=== PATIENT | female | born 1990 | race Caucasian/White ===

== ENCOUNTER → 2022-12-12 09:09 | Outpatient (BNVA) | payer OTHER, SELFPAY | PROVIDERS: PCP Physician Assistant; Visit Provider Physician Assistant ==

== ENCOUNTER 2023-01-07 09:05 | Outpatient (REF) | payer OTHER, SELFPAY ==
--- NOTE | ~2023-01-07 | XR_ITS ---
EXAMINATION: XR CHEST 2 VIEWS CLINICAL INFORMATION: Morbid obesity. COMPARISON: None. TECHNIQUE: Frontal and lateral views of the chest were obtained. FINDINGS: The heart, great vessels, pulmonary vasculature and mediastinum are normal. The lungs show no focal infiltrate, effusion or pneumothorax. There is no acute osseous abnormality. XR/XR chest 2V IMPRESSION: No active cardiopulmonary disease.
--- NOTE | 2023-01-07 10:05 | ECG_ITS ---
Test Reason : OBESITY Blood Pressure : / mmHG Vent. Rate : 072 BPM Atrial Rate : 072 BPM P-R Int : 168 ms QRS Dur : 096 ms QT Int : 408 ms P-R-T Axes : 017 040 016 degrees QTc Int : 446 ms Normal sinus rhythm Normal ECG No previous ECGs available Referred By: Nitin Alvarenga Electronically Signed By:DILLON VAZQUEZ
[2023-01-07 10:21] LABS: MANUAL DIFF FLAG NO
[2023-01-07 10:48] LABS: Basophils Absolute Auto 0.1 X10*3/uL (0.0-0.2); Basophils Percent Auto 0.5 % (0-2); Eosinophils Absolute Auto 0.1 X10*3/uL (0.0-0.4); Eosinophils Percent Auto 1.1 % (0-4); Hematocrit 38.3 % (37.0-47.0); Imm Gran Abs Auto 0.05 X10*3/uL (0.00-0.03); Imm Gran Pct Auto 0.4 % (0.0-0.4); Lymphocytes Absolute Auto 2.6 X10*3/uL (1.2-4.9); Lymphocytes Percent Auto 21.7 % (20-40); Mean Corpuscular HGB Conc 31.3 g/dl (31.0-35.0); Mean Corpuscular Hemoglobin 25.1 pg (27.0-33.0); Mean Corpuscular Volume 80.1 fL (80.0-98.0); Mean Platelet Volume 10.7 fL (9.4-12.3); Monocytes Absolute Auto 0.6 X10*3/uL (0.1-1.2); Monocytes Percent Auto 5.3 % (2-11); Neutrophils Absolute Auto 8.3 x10*3/uL (2.0-8.3); Platelet Count 317 X10*3/uL (160-400); Red Blood Count 4.78 X10*6/uL (4.20-5.50); Red Cell Distribution Width 19.1 % (11.0-16.0); White Blood Count 11.7 X10*3/uL (4.8-10.8)
[2023-01-07 10:56] LABS: Estimated Average Glucose 157 mg/dL; Hemoglobin A1c % 7.1 %
[2023-01-07 11:23] LABS: Alanine Aminotransferase 18 U/L (0-31); Albumin Level 4.2 g/dL (3.5-5.0); Alkaline Phosphatase 70 U/L (39-117); Anion Gap 14 (12-20); Aspartate Amino Transferase 11 U/L (5-31); Bilirubin Total 0.5 mg/dL (0.0-1.0); Blood Urea Nitrogen 11 mg/dL (9-16); C Reactive Protein 3.23 mg/dL (< or = 0.50); Calcium 9.4 mg/dL (8.4-10.2); Carbon Dioxide 27 mmol/L (22-29); Chloride 102 mmol/L (96-108); Cholesterol 182 mg/dL; Estimated Glomerular Filt Rate > 60; Glucose Random 142 mg/dL (60-115); HDL Cholesterol 38 mg/dL; Iron 62 mcg/dL (30-160); LDL Cholesterol Calculated 122 mg/dl; Percent Iron Saturation 27 % (15-50); Potassium 4.4 mmol/L (3.3-5.1); Sodium 139 mmol/L (135-145); Total Iron Binding Capacity 228 mcg/dL (228-428); Total Protein 6.9 g/dL (6.5-8.0); Triglycerides 113 mg/dL; Unsaturated Iron Binding 166 ug/dL
[2023-01-07 11:51] LABS: Ferritin 371 ng/mL (10-122); Insulin 83 uU/mL (2-29); Vitamin B12 251 pg/mL (200-900); Vitamin D 25-OH Total 24.5 ng/mL (>30)
[2023-01-08 14:09] LABS: Calcium (PTHI) 9.5 mg/dL (8.6-10.2); PTHI 25 pg/mL (16-77)
[2023-01-09 13:54] LABS: H Pylori Breath Test Negative (Negative)
[2023-01-13 07:03] LABS: Vitamin B1 13 nmol/L (8-30)
[2023-01-15 05:33] LABS: Zinc 79 mcg/dL (60-130)
[2023-01-16 16:14] LABS: Vitamin A 43 mcg/dL (38-98)
== END 2023-01-07 09:06 | disposition home or self-care (01) ==
LOC: HO.LAB 09:05
PROVIDERS: PCP Physician Assistant; Visit Provider Physician Assistant Surgical
DX: E66.01 Morbid (severe) obesity due to excess calories (principal); R06.83 Snoring; Z71.3 Dietary counseling and surveillance; Z79.899 Other long term (current) drug therapy; Z68.43 Body mass index [BMI] 50.0-59.9, adult
CPT/HCPCS: 36415; 71046; 80053; 80061; 82306; 82607; 82728; 82746; 83013; 83036; 83525; 83540; 83970; 84425; 84443; 84590; 84630; 85025; 86140; 93005; 99202; 99211

== ENCOUNTER → 2023-01-26 20:30 | Outpatient (REF) | payer OTHER, SELFPAY | LOC: HO.SL 20:30 | PROVIDERS: Visit Provider Physician Assistant Surgical | DX: G47.33 Obstructive sleep apnea (adult) (pediatric) (principal) | CPT/HCPCS: 95811 ==

== ENCOUNTER → 2023-01-27 12:00 | Outpatient (BNVA) | payer OTHER, SELFPAY | PROVIDERS: Referring Provider Physician Assistant Surgical; Visit Provider Counselor Mental Health ==

== ENCOUNTER 2023-02-24 12:19 | Outpatient (AMB) | payer OTHER, SELFPAY ==
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
== END 2023-02-24 12:40 | disposition home or self-care (01) ==
LOC: HO.HBST 12:19
PROVIDERS: Visit Provider Counselor Mental Health
DX: F50.9 Eating disorder, unspecified (principal); F43.10 Post-traumatic stress disorder, unspecified
CPT/HCPCS: 90834

== ENCOUNTER → 2023-02-24 12:19 | Outpatient (BNVA) | payer OTHER, SELFPAY | PROVIDERS: Visit Provider Counselor Mental Health ==

== ENCOUNTER 2023-02-24 13:51 | Outpatient (AMB) | payer OTHER, SELFPAY ==
--- NOTE | 2023-02-24 13:19 | MHC.OFFVISWM ---
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 Allergies No Known Allergies Allergy (Verified 01/07/23 11:54) Medication List - Last Reconciled 02/24/23 by SANDRA Bowers albuterol sulfate 90 mcg/actuation (ProAir HFA) 2 puffs inhalation Q4-6H PRN baclofen 10 mg PO TID PRN blood-glucose meter (FreeStyle Lite Meter kit) As directed cetirizine 10 mg PO DAILY PRN cholecalciferol (vitamin D3) 125 mcg PO DAILY 90 days clotrimazole-betamethasone 1-0.05 % 1 appl topical BID cyanocobalamin (vitamin B-12) 500 mcg PO DAILY 90 days ferrous sulfate 325 mg PO DAILY fluticasone furoate 100 mcg/actuation (Arnuity Ellipta) 1 inh inhalation DAILY fluticasone propionate 50 mcg/actuation (Flonase Allergy Relief) 2 sprays intranasal DAILY fluticasone propionate 110 mcg/actuation (Flovent HFA) 2 puffs inhalation BID gabapentin 600 mg PO TID insulin lispro (Admelog U-100 Insulin lispro) 1 sliding scale dose subcut USEASDIRECTD insulin pump cart,automated,BT (Omnipod 5 G6 Pods (Gen 5) subcutaneous cartridge) As directed ipratropium-albuterol 0.5 mg-3 mg(2.5 mg base)/3 mL 3 mL inhalation Q4-6H PRN montelukast 10 mg PO BEDTIME HPI HPI Comments History of Present Illness Details The patient is a pleasant 32 year old female who returns to the clinic for pre-operative surgical weight loss management. They were last seen in the office on 01/07/23, recorded weight at that time was 299.6 pounds, with a BMI of 51.4. Today's weight is 290.5 pounds and BMI is 49.9. There has been a weight loss of 9.1 pounds since initiating the surgical weight loss program on 01/07/23 with a total body weight loss of 3 %. Pre op work up completed as follows: SWL classes:? BH appts: 02/24/23 ? ? RD appts: 02/28/23 Labs: 01/07/23-HgbA1c:7.1, B12:251, Low D H. pylori: 01/07/23-neg CXR: 01/07/23-nad EK01/07/23-normal ABD U/S: 03/13/23 UGI: 03/13/23 The patient reports she has had a significant improvement in her BS with reading 100-120 and her endocinologist stopped the trulicity and metformin. Not doing the third shake as she is too full. Current meal plan includes: 3 Pure Protein shakes ([employer], [employer], [employer]) First shake (1 scoop in 8 oz low fat unsweetened almond milk) at 8am-10am Second shake, (1/2 scoop in 8 oz low fat unsweetened almond milk) at 11am-1pm 1 protein bar (Fulfil bars at [employer], [employer], or [employer]) at 2pm-4pm. Dinner at 4pm (10 forks of protein and 10 forks of salad/vegetables). Drinking 80 oz of water Current exercise plan includes: stationary bike, elliptical and treadmill but she recently went to and was told she can only do the bike. Stationary bike 45-60 min, daily, [facility] Surgical History Hx of section Hx of eye surgery Family History Mother No problems noted. Father Hypertension Diabetes Neuropathy Brother No problems noted. Brother No problems noted. Sister Diabetes Sister No problems noted. Daughter Asthma Epilepsy Social History Alcohol intake: never Patient Tobacco Use Status: Never used Tobacco Assessment & Plan Assessment & Plan (1) Morbid obesity: Code(s): E66.01 - Morbid (severe) obesity due to excess calories Plan: making improvements. Continue meal plan. Encouraged to join [employer] (given discount paper) track calories with goal of 300 per day. rtc 3 weeks reminded of upcoming appts. Telehealth Telehealth Location of provider rendering services: practice address Location of patient: address on file Patient Identification confirmed using: Name, : Yes Telehealth method: video Patient verbally consented to treatment: Yes Patient verbally consented to billing insurance company: Yes Patient informed of any privacy concerns related to visit: Yes Minutes spent on Phone/Video with Pt.: 15 Coding Level of Care Code Tele Est Pt Level 3 (20534) Diagnoses Morbid obesity E66.01 Time Spent (min) 20
[2023-02-24 13:20] VITALS: BMI 49.9
== END 2023-02-24 14:17 | disposition home or self-care (01) ==
LOC: HO.HBS 13:51
PROVIDERS: Visit Provider Physician Assistant Surgical
DX: E66.01 Morbid (severe) obesity due to excess calories (principal); Z68.42 Body mass index [BMI] 45.0-49.9, adult
CPT/HCPCS: 99213

== ENCOUNTER 2023-02-28 09:00 | Outpatient (AMB) | payer OTHER, SELFPAY ==
--- NOTE | 2023-02-28 08:43 | MHC.AMNUTRGE ---
Intake Intake Visit Reasons: (OV) Initial Nutrition SWL Grades 9 Through 12 Teacher Required: Yes Grades 9 Through 12 Teacher Name: michael [email or web address] Information Interpreted: non-clinical & clinical Allergies No Known Allergies Allergy (Verified 01/07/23 11:54) HPI Nutrition Presentation Details APPLICATIONS COORDINATOR weight 299# - December 2022 Reason for consult elevated BMI Diet Assmnt Details I cant stand the shakes anymore - getting bored of just chocolate or vanilla Has been adding strawberries to her shakes for flavor and because her blood glucose has been dropping to the 60's. She reports she has been hungry at 12 8am Pure Protein shake 1 scoop with almond milk 11am shake 1/2 scoop 2pm bar 4pm meal lettuce, tomato, onion, peppers and pork chop 6pm shake but not having SWL online classes : completed 1-4 Previous weight loss methods attempted reports first being concerned about her weight 5-6 years ago, highest weight to date was 3151. When she first presented to the WMP 12/12/22 her weight was 302.4 with a BMI of 51.9 and she has since made changes to her diet. She has tried multiple methods of weight loss including fad diets, previous WMP at [facility] Dietary counseling reduction Diagnosis Nutrition problem #1 overweight/obesity As related to (etiology) #1 excess energy intake and physical inactivity As evidenced by (sign/symptom) #1 high BMI Nutrition problem #2 altered nutrition labs As related to (etiology) #2 altered metabolism nutri As evidenced by (sign/symptom) #2 widely varied blood sugar (IMPROVING) Monitoring/Goals Nutrition problem monitoring total energy intake, HgbA1c, level of knowledge/skill, total PRO intake, glucose, fasting, total CHO intake and weight Outcome progress progressing Learning/Education Readiness to learn good Stages of change action Educational materials provided Yes Most Recent Diabetes Results: Cholesterol 182 mg/dL 01/07/23 HDL Cholesterol 38 mg/dL 01/07/23 Triglycerides 113 mg/dL 01/07/23 Creatinine 0.73 mg/dL (0.5-1.4) 01/07/23 Blood Urea Nitrogen 11 mg/dL (9-16) 01/07/23 Sodium 139 mmol/L (135-145) 01/07/23 Potassium 4.4 mmol/L (3.3-5.1) 01/07/23 Chloride 102 mmol/L (96-108) 01/07/23 Carbon Dioxide 27 mmol/L (22-29) 01/07/23 Calcium 9.4 mg/dL (8.4-10.2) 01/07/23 AST 11 U/L (5-31) 01/07/23 ALT 18 U/L (0-31) 01/07/23 Total Protein 6.9 g/dL (6.5-8.0) 01/07/23 Albumin 4.2 g/dL (3.5-5.0) 01/07/23 PFSH Surgical History Hx of section Hx of eye surgery Family History Mother No problems noted. Father Hypertension Diabetes Neuropathy Brother No problems noted. Brother No problems noted. Sister Diabetes Sister No problems noted. Daughter Asthma Epilepsy Social History Alcohol intake: never Patient Tobacco Use Status: Never used Tobacco Assessment & Plan Assessment & Plan (1) Morbid obesity: Code(s): E66.01 - Morbid (severe) obesity due to excess calories (2) Diabetes: Code(s): E11.9 - Type 2 diabetes mellitus without complications Patient Instructions: each morning shake 2 scoops protein powder to better meet her protein needs (since she is not having the last one) and help with hunger. Watch blood sugar with adding strawberries to shakes. Try to keep carb content consistent. Provided all handouts and education provided. Will follow up with me again after completing online classes. F/u on 03/26 11am telehealth Coding Level of Care Code Nutr Indiv Intake (34440) Diagnoses Morbid obesity E66.01 Diabetes E11.9 Time Spent (min) 45
== END 2023-02-28 09:45 | disposition home or self-care (01) ==
PROVIDERS: Referring Provider Physician Assistant Surgical; Visit Provider Dietitian, Registered
DX: E66.01 Morbid (severe) obesity due to excess calories (principal); E11.9 Type 2 diabetes mellitus without complications

== ENCOUNTER → 2023-02-28 09:00 | Outpatient (BNVA) | payer OTHER, SELFPAY | PROVIDERS: Referring Provider Physician Assistant Surgical; Visit Provider Dietitian, Registered | DX: E66.01 Morbid (severe) obesity due to excess calories (principal); E11.9 Type 2 diabetes mellitus without complications | CPT/HCPCS: 97802 ==

== ENCOUNTER 2023-03-06 08:26 | Outpatient (AMB) | payer OTHER, SELFPAY ==
--- NOTE | 2023-03-06 08:35 | A.OFFVIS_ITS ---
Intake Vital Signs 03/06/23 08:41 Height 5 ft 4 in Weight 295 lb 2 oz BMI 50.7 BP 122/62 Blood Pressure Location Rt brachial Position Sitting Pulse 66 Pulse Source Pulse Oximeter Pulse Oximetry (%) 96 Oxygen Delivery Method Room Air Intake Visit Reasons: I-BRIAR WO[employer] SORTER: Snoring - LVM Intake Note: NPV for MARIAJOSE, had sleep study done Automobile Relocation Engineer Required: Yes Automobile Relocation Engineer Name: Erika Lopez Allergies No Known Allergies Allergy (Verified 03/06/23 08:36) HPI HPI Comments History of Present Illness Details 2 y/o female patient presents for new in-person visit to manage sleep apnea. Pt reports that she is in wt management program, and plans to have bariatric surgery. She snores and having gasping wakes up since she was a child. Pt reports excessive daytime sleepiness, she can fall asleep anywhere when she is inactive. Pt underwent PSG sleep study. The baseline portion of the study was significant for a moderate degree of sleep apnea with increased severity in REM sleep. The AHI was 19/hr, REM AHI was 40/hr and oxygen kaela was 86%. Pt was trialed on CPAP 4-8cmH2O. The breathing and oxygenation stabilized on all pressure. Sleep questionnaire: Have you ever been diagnosed with a sleep disorder? Yes, MARIAJOSE. Have you ever had a sleep study in the past? Yes. Have you ever been treated for a sleep disorder? Not yet. Do you take medications for a sleep disorder? Prazosin. Do you snore? Yes. Do you wake up gasping at night? Yes. Do you have episodes of apneas? Yes. If yes, are they witnessed? Yes, by her family members. Do you have episodes of nocturnal chest pain or dyspnea? Yes. Do you have difficulty initiating sleep? No. Do you have difficulty maintaining sleep? Yes. Do you wake up tired? Yes. Do you have headaches upon awakening? Yes, sometimes. Do you wake up with dry mouth or throat? Yes. Do you have GERD? Yes. Do you have nocturia? Yes, 4 times at night. Do you have nocturnal leg cramps? Yes. Do you have symptoms of restless legs? Yes. Do you act out your dreams? Yes, yelling. Sleep hygiene questionnaire: What is your usual sleep routine? Usual bedtime is at 8-10 pm; Usual wake up time is at 7-10 am. Do you take naps? Yes. Is your sleep environment cool, dark, and quiet? Yes. Do you exercise? No. Do you take caffeine or other stimulants? Yes, little coffee in the morning. Do you use electronics in bed? Yes. What is your work schedule? No. Hypersomnolence questionnaire: Do you have daytime tiredness or fatigue? Yes. Do you easily fall asleep when inactive? Yes. Have you ever had episodes of sudden weakness? No. Have you ever had episodes of sudden weakness associated with strong emotions? No. PFSH Surgical History Hx of section Hx of eye surgery Family History Mother No problems noted. Father Hypertension Diabetes Neuropathy Brother No problems noted. Brother No problems noted. Sister Diabetes Sister No problems noted. Daughter Asthma Epilepsy Social History Alcohol intake: never Patient Tobacco Use Status: Never used Tobacco Review of Systems Const All systems reviewed & are unremarkable except as noted in HPI and below ENT Reports Normal hearing present Neuro Reports Normal hearing present Physical Exam Vital Signs: Last Vital Signs Pulse 66 03/06/23 08:41 BP 122/62 03/06/23 08:41 Pulse Ox 96 03/06/23 08:41 Oxygen Delivery Method Room Air 03/06/23 08:41 BMI result Body Mass Index 50.7 Const General: cooperative Nutritional Appearance: obese Orientation/consciousness: patient oriented x3 Limitations: language barrier Neck Neck: Yes full ROM and Yes supple Resp Effort & Inspection: normal respiratory effort and able to speak in complete sentences Neuro General: patient oriented x3, gait normal, moves all extremities and no focal motor deficits Cranial nerves: Yes Bilaterally intact EOM present, Yes Normal facial strength present, Yes Midline tongue present, Yes Symmetric palate elevation present and Yes Normal hearing present Cognition (Neuro): normal cognition Gait exam (Neuro): Normal gait present Motor exam (neuro): 5/5 motor strength present throughout, Pronator motor function not present and no tremor noted Psych Appearance: grossly normal Mental Status: mental status grossly normal Speech and movement: Normal speech and movement present Affect: normal affect Attitude: cooperative Assessment & Plan Assessment & Plan (1) MARIAJOSE (obstructive sleep apnea): Comment: A moderate degree of sleep apnea with increased severity in REM. The AHI was 10/hr, REM AHI was 40/hr and oxygen kaela was 86% Code(s): G47.33 - Obstructive sleep apnea (adult) (pediatric) Plan Advised patient to start CPAP at 8cmH2O. Stressed compliance, use CPAP nightly and more than 4 hours. Clean mask and tubing regularly and change the supplies routinely. Sleep hygiene education provided, try to have routine sleep schedule and physically active during daytime. Coding Level of Care Code New Pt Level 3 (80176) Diagnoses MARIAJOSE (obstructive sleep apnea) G47.33
[2023-03-06 08:41] VITALS: BP 122/62; PULSE 66; O2SAT 96; BMI 50.7
== END 2023-03-06 09:16 | disposition home or self-care (01) ==
PROVIDERS: Visit Provider Nurse Practitioner Family
DX: G47.33 Obstructive sleep apnea (adult) (pediatric) (principal)
CPT/HCPCS: 99203

== ENCOUNTER → 2023-03-06 08:26 | Outpatient (BNVA) | payer OTHER, SELFPAY | PROVIDERS: Visit Provider Nurse Practitioner Family | DX: G47.33 Obstructive sleep apnea (adult) (pediatric) (principal) | CPT/HCPCS: 99202 ==

== ENCOUNTER 2023-03-13 07:31 | Outpatient (REF) | payer OTHER, SELFPAY ==
--- NOTE | ~2023-03-13 | US_ITS ---
EXAMINATION: US COMPLETE ABDOMEN WITH LIVER ELASTOGRAPHY CLINICAL INFORMATION: Morbid obesity. COMPARISON: None available. TECHNIQUE: Real-time imaging of the abdominal viscera. Noninvasive ultrasound liver fibrosis assessment is performed using Connie ElastPQ point quantification shear wave elastography (2D-SWE) with a C5-2 MHz transducer. Multiple elastography samples are obtained. FINDINGS: PANCREAS: Limited. The visualized pancreatic head and body are normal in appearance. The remainder of the pancreas is obscured from visualization by the overlying bowel gas. ABDOMINAL AORTA: The proximal, middle, and distal aortic segments are normal in caliber. INFERIOR VENA CAVA: Visualized portions are normal. LIVER: There is hepatomegaly. The liver demonstrates normal size, contour and increased echogenicity. No focal lesion or intrahepatic biliary duct dilatation. The right lobe measures 20.4 cm in length. The left lobe measures 14.2 cm in length. Portal flow is towards the liver (hepatopetal). Shear wave liver elastography median stiffness is 2.17 m/s (reference: normal median stiffness is 1.3 m/s or less). IQR/median stiffness to assess sampling precision is 0.05 (reference: good quality data set is IQR/median stiffness of 0.15 or less). GALLBLADDER: Normal. The gallbladder is physiologically distended without evidence of stones, sludge, polyps, wall thickening or pericholecystic fluid. COMMON BILE DUCT: Normal in caliber measuring 0.3 cm in diameter. RIGHT KIDNEY: Normal. No hydronephrosis. No renal calculi or focal parenchymal lesions. The kidney measures 11.0 cm in maximum dimension. LEFT KIDNEY: Normal. No hydronephrosis. No renal calculi or focal parenchymal lesions. The kidney measures 11.7 cm in maximum dimension. SPLEEN: Normal. The spleen measures 10.0 cm in maximum dimension. FREE FLUID: None. US/US abdomen comp w elastography IMPRESSION: 1. There is hepatomegaly. 2. There is generalized increase in hepatic echotexture, consistent with fatty infiltration or hepatocellular disease. Please correlate clinically. No focal hepatic mass or intrahepatic biliary dilatation is seen. 3. Liver elastography: Measuremensts are consistent with compensated advanced chronic liver disease. REFERENCE: Society of Radiologists in Ultrasound Liver Stiffness Thresholds (2020): LIVER STIFFNESS THRESHOLDS: *Liver Stiffness equal or less than 1.3 m/s: High probability of being normal. *Liver Stiffness less than 1.7 m/s: In the absence of other known clinical signs, rules out compensated advanced chronic liver disease. *Liver Stiffness 1.7-2.1 m/s: Suggestive of compensated advanced chronic liver disease but need further test for confirmation. *Liver Stiffness over 2.1 m/s: Rules in compensated advanced chronic liver disease. *Liver Stiffness over 2.4 m/s: Suggestive of clinically significant portal hypertension. QUALITY OF DATA SET: *IQR/Median value equal or less than 0.15 implies a quality data set. *IQR/Median value over 0.15 implies a poor quality data set. SIGNIFICANT CHANGE FROM PRIOR EXAM: Significant change if liver stiffness measurement is 10% or greater from prior exam. OTHER CONSIDERATIONS: The stage of liver fibrosis may be overestimated in the setting of acute hepatitis, liver inflammation, elevated liver function tests, hepatic vascular congestion, obstructive cholestasis, non-fasting state, and infiltrative diseases such as amyloidosis and lymphoma. In some patients with NAFLD, the liver stiffness thresholds for compensated advanced chronic liver disease may be lower. In causes other than viral hepatitis and NAFLD, liver stiffness thresholds are not well established.
== END 2023-03-13 07:32 | disposition home or self-care (01) ==
LOC: HO.US 07:31
PROVIDERS: Visit Provider Physician Assistant Surgical
DX: E66.01 Morbid (severe) obesity due to excess calories (principal)
CPT/HCPCS: 76705; 76981

== ENCOUNTER 2023-03-18 11:28 | Outpatient (AMB) | payer OTHER, SELFPAY ==
--- NOTE | 2023-03-18 11:36 | A.OFFVIS_ITS ---
Intake VS Expanded 03/18/23 11:40 Height 5 ft 4 in Weight 289 lb 6.4 oz BMI 49.7 BP 115/55 L Blood Pressure Location Rt brachial Blood Pressure Position Sitting Pulse 69 Pulse Source Pulse Oximeter Temp 97.1 F Temperature Source Temporal Artery Scan Pulse Oximetry 97 Oxygen Delivery Method Room Air Body Fat 133.6 Body Fat Percentage 46.2 Free Fat Mass 155.6 Muscle Mass 148.0 Visceral Mass 15.0 Water Mass 111.6 BMR 2,231 Intake Visit Reasons: (OV) F/U SWL Dipper Clock And Watch Hands Required: Yes Dipper Clock And Watch Hands Name: office cmi Allergies No Known Allergies Allergy (Verified 03/18/23 11:39) Medication List - Last Reconciled 03/18/23 by SANDRA Bowers albuterol sulfate 90 mcg/actuation (ProAir HFA) 2 puffs inhalation Q4-6H PRN alcohol swabs (Easy Touch Alcohol Prep Pads) pad topical BID baclofen 10 mg PO TID PRN blood sugar diagnostic (FreeStyle Lite Strips) As directed blood-glucose meter (FreeStyle Lite Meter kit) As directed cetirizine 10 mg PO DAILY PRN cholecalciferol (vitamin D3) 125 mcg PO DAILY 90 days clotrimazole-betamethasone 1-0.05 % 1 appl topical BID cyanocobalamin (vitamin B-12) 500 mcg PO DAILY 90 days diclofenac sodium 1% grams topical BID fluticasone furoate 100 mcg/actuation (Arnuity Ellipta) 1 inh inhalation DAILY fluticasone propionate 50 mcg/actuation (Flonase Allergy Relief) 2 sprays intranasal DAILY fluticasone propionate 110 mcg/actuation (Flovent HFA) 2 puffs inhalation BID gabapentin 600 mg PO TID hydroxychloroquine 200 mg PO BID insulin lispro (Admelog U-100 Insulin lispro) 1 sliding scale dose subcut USEASDIRECTD insulin pump cart,automated,BT (Omnipod 5 G6 Pods (Gen 5) subcutaneous cartridge) As directed lancets (FreeStyle Lancets) As directed montelukast 10 mg PO BEDTIME pantoprazole 40 mg PO DAILY prazosin 2 mg PO BEDTIME sertraline mg PO HPI HPI Comments 2 History of Present Illness Details The patient is a pleasant 32 year old female who returns to the clinic for pre-operative surgical weight loss management. They were last seen in the office on 02/24/23, recorded weight at that time was 290.5 pounds, with a BMI of 50.2. Today's weight is 289.4 pounds and BMI is 49.7. There has been a weight loss of 10.2 pounds since initiating the surgical weight loss program on 01/07/23 with a total body weight loss of 3.4 %. Pre op work up completed as follows: SWL classes:? 11/23 BH appts: cleared-02/24/23 ? ? RD appts: f/u 03/26/23 Labs: 01/07/23-HgbA1c:7.1, B12:251, Low D H. pylori: 01/07/23-neg CXR: 01/07/23-nad EK01/07/23-normal ABD U/S: 03/13/23-fatty liver UGI: 03/13/23 Sleep study 02/06/23-Mod MARIAJOSE-recc CPAP She has not lost much weight since last visit. She states she is doing the meal plan but not drinking much watre. Complains of OA and fibromyalgia The patient reports she has had a significant improvement in her BS with reading 100-150 and her endocinologist stopped the trulicity and metformin.? Not doing the third shake as she is too full.? Current meal plan includes: 3 Pure Protein shakes First shake (1 scoop in 8 oz low fat unsweetened almond milk) at 8am-10am Second shake, (1/2 scoop in 8 oz low fat unsweetened almond milk) at 11am-1pm 1 protein bar (Fulfil bars at [employer], [employer], or [employer]) at 2pm-4pm. Dinner at 4pm (10 forks of protein and 10 forks of salad/vegetables). Another shake with 1/2 scoop in 8 oz unsweetened almond milk at 7pm-9pm. Drinking 32-48 oz of water Current exercise plan includes: stationary bike and treadmill, Stationary bike 45-60 min, daily, Not able to track calories, not yet able to afford [email or web address] [facility] Surgical History Hx of section Hx of eye surgery Family History Mother No problems noted. Father Hypertension Diabetes Neuropathy Brother No problems noted. Brother No problems noted. Sister Diabetes Sister No problems noted. Daughter Asthma Epilepsy Social History Alcohol intake: never Patient Tobacco Use Status: Never used Tobacco Physical Exam Const General: healthy appearing and no acute distress Resp Effort & Inspection: normal respiratory effort Auscultation: clear to auscultation bilaterally Cardio Rate: regular rate Rhythm: regular rhythm GI Auscultation: normal bowel sounds Extrem General: Yes normal to inspection Assessment & Plan Assessment & Plan (1) Morbid obesity: Code(s): E66.01 - Morbid (severe) obesity due to excess calories Plan: Significantly improved BS Encouraged to continue exercise and start treadmill Try to join [employer] (paper given for reduction in membership) when she can do so financially Continue meal plan Reminded of upcoming appts RTC 4 weeks Coding Level of Care Code Est Pt Level 3 (79411) Diagnoses Morbid obesity E66.01
[2023-03-18 11:40] VITALS: BP 115/55; PULSE 69; TEMP 36.2; O2SAT 97; BMI 49.7
== END 2023-03-18 11:59 | disposition home or self-care (01) ==
PROVIDERS: Visit Provider Physician Assistant Surgical
DX: E66.01 Morbid (severe) obesity due to excess calories (principal); Z68.42 Body mass index [BMI] 45.0-49.9, adult
CPT/HCPCS: 99213

== ENCOUNTER → 2023-03-18 11:28 | Outpatient (BNVA) | payer OTHER, SELFPAY | PROVIDERS: Visit Provider Physician Assistant Surgical | DX: E66.01 Morbid (severe) obesity due to excess calories (principal); Z68.42 Body mass index [BMI] 45.0-49.9, adult | CPT/HCPCS: 99212 ==

== ENCOUNTER 2023-03-24 11:00 | Outpatient (AMB) | payer OTHER, SELFPAY ==
--- NOTE | 2023-03-24 11:23 | MHC.WMTHER ---
Intake Intake Visit Reasons: VIDEO BH F/U Allergies No Known Allergies Allergy (Verified 03/18/23 11:39) PFSH Surgical History Hx of section Hx of eye surgery Family History Mother No problems noted. Father Hypertension Diabetes Neuropathy Brother No problems noted. Brother No problems noted. Sister Diabetes Sister No problems noted. Daughter Asthma Epilepsy Social History Alcohol intake: never Patient Tobacco Use Status: Never used Tobacco Behavioral Health Assessment Weight Management Therapy Therapy Notes Details PT presents for a f/up PT reports she's frustrated about not been able to loss weight as she wishes. She's also struggling with pain due to fibromyalgia. Reports she is using treadmill and bike but she's not tracking how much calories she burn, also been swimming 2 times at week. INTERVENTIONS: Active listening, processed functioning, progress and needs. Validated frustration feelings and explored possible things impacting her weight-loss journey. Cognitive processing therapy, provided with coping strategies to manage negative intrusive thoughts and become flexible about her journey. Explored ways she could improve physical activity and provided resources of modified workouts (program worksheet). RESPONSE: PT was open and active. Pt has been cleared but will continue receiving monthly support. Presenting Concerns Referral Source P Provider. Reason for referral Behavioral health assessment and support as part of process for weight-loss surgery. Precipitating Event Medical issues. Assessment & Plan Assessment & Plan (1) Eating disorder: Code(s): F50.9 - Eating disorder, unspecified (2) PTSD (post-traumatic stress disorder): Code(s): F43.10 - Post-traumatic stress disorder, unspecified Plan PT is cleared from the behavioral health stand point, however we will follow-up in about 4 weeks to continue monitoring anxiety management and provide support with habit building. Telehealth Telehealth Location of provider rendering services: other (Home office. [place], [place].) Location of patient: address on file Patient Identification confirmed using: Name, : Yes Telehealth method: video Patient verbally consented to treatment: Yes Patient verbally consented to billing insurance company: Yes Patient informed of any privacy concerns related to visit: Yes Minutes spent on Phone/Video with Pt.: 45 Coding Level of Care Code Established Pt Tele Psytx 45 mins (35704) Patient Type Established Diagnoses Eating disorder F50.9 PTSD (post-traumatic stress disorder) F43.10 Time Spent (min) 45
== END 2023-03-27 16:19 | disposition home or self-care (01) ==
LOC: HO.HBST 11:26
PROVIDERS: Visit Provider Counselor Mental Health
DX: F50.9 Eating disorder, unspecified (principal); F43.10 Post-traumatic stress disorder, unspecified
CPT/HCPCS: 90834

== ENCOUNTER → 2023-03-24 11:00 | Outpatient (BNVA) | payer OTHER, SELFPAY | PROVIDERS: Visit Provider Counselor Mental Health ==

== ENCOUNTER 2023-03-26 11:28 | Outpatient (AMB) | payer OTHER, SELFPAY ==
--- NOTE | 2023-03-26 11:16 | MHC.AMNUTRGE ---
Intake Intake Visit Reasons: (TV) SWL Follow Up Multi Township Assessor Required: Yes Multi [employer] Assessor Name: [email or web address] [id number] Information Interpreted: non-clinical & clinical Allergies No Known Allergies Allergy (Verified 03/18/23 11:39) HPI Nutrition Presentation Details [employer] [employer] weight 299# - December 2022 Reason for consult elevated BMI Diet Assmnt Details 8am Pure Protein shake 1 scoop with almond milk 11am shake 1/2 scoop 2pm bar 4pm meal lettuce, tomato, onion, peppers and pork chop - eats the same thing everyday 6pm shake but not having SWL online classes : completed Dietary counseling reduction Diagnosis Nutrition problem #1 overweight/obesity As related to (etiology) #1 excess energy intake and physical inactivity As evidenced by (sign/symptom) #1 high BMI Monitoring/Goals Nutrition problem monitoring total energy intake, HgbA1c, level of knowledge/skill, total PRO intake, glucose, fasting, total CHO intake and weight Outcome progress progressing Learning/Education Readiness to learn good Stages of change action Educational materials provided Yes Most Recent Diabetes Results: No Data to Display [facility] Surgical History Hx of section Hx of eye surgery Family History Mother No problems noted. Father Hypertension Diabetes Neuropathy Brother No problems noted. Brother No problems noted. Sister Diabetes Sister No problems noted. Daughter Asthma Epilepsy Social History Alcohol intake: never Patient Tobacco Use Status: Never used Tobacco Assessment & Plan Assessment & Plan (1) Morbid obesity: Code(s): E66.01 - Morbid (severe) obesity due to excess calories Patient Instructions: Patient is cleared from a nutrition standpoint for bariatric surgery. Educational requirements have been completed. Reviewed vitamin supplementation and commitment to protein shake for several months post surgery. Encouraged communication with office as needed Telehealth Telehealth Location of provider rendering services: practice address Location of patient: address on file Patient Identification confirmed using: Name, : Yes Telehealth method: voice only Patient verbally consented to treatment: Yes Patient verbally consented to billing insurance company: Yes Patient informed of any privacy concerns related to visit: Yes Minutes spent on Phone/Video with Pt.: 20 Coding Level of Care Code Nutr Indiv Subseq ([id number]) Diagnoses Morbid obesity E66.01 Time Spent (min) 20
== END 2023-03-26 12:33 | disposition home or self-care (01) ==
LOC: HO.HBS 11:28
PROVIDERS: Visit Provider Dietitian, Registered
DX: E66.01 Morbid (severe) obesity due to excess calories (principal)

== ENCOUNTER → 2023-03-26 11:28 | Outpatient (BNVA) | payer OTHER, SELFPAY | PROVIDERS: Visit Provider Dietitian, Registered | DX: E66.01 Morbid (severe) obesity due to excess calories (principal) | CPT/HCPCS: 97803 ==

== ENCOUNTER 2023-04-11 08:25 | Outpatient (REF) | payer OTHER, SELFPAY ==
--- NOTE | ~2023-04-11 | FL_ITS ---
EXAMINATION: FL FLUOROSCOPY UPPER GI WITH AIR CLINICAL INFORMATION: Moderate/severe obesity due to excess calories. COMPARISON: None available. TECHNIQUE: Routine upper GI air-contrast study was performed in upright and lying position. FINDINGS: Following oral administration of thick barium and effervescent granules there is normal propagation of bolus from the oral cavity through the pharynx, esophagus into stomach without any evidence of obstruction, narrowing or stricture. On placing patient supine and prone lying, the course, caliber and peristalsis of the stomach, duodenum bulb and the sweep are normal. The mucosal pattern of the stomach and the duodenum is normal. FLUOROSCOPY TIME: 1.5 minutes DOSE AREA PRODUCT: 52.184 uGy-m2 (microgray-meter squared) FL/FL upper GI w air IMPRESSION: Unremarkable upper GI air-contrast study.
== END 2023-04-11 08:26 | disposition home or self-care (01) ==
LOC: HO.XRAY 08:25
PROVIDERS: Visit Provider Physician Assistant Surgical
DX: E66.01 Morbid (severe) obesity due to excess calories (principal)
CPT/HCPCS: 74246

== ENCOUNTER → 2023-04-11 08:27 | Outpatient (BNV) | payer OTHER, SELFPAY | PROVIDERS: Visit Provider Radiology Diagnostic Radiology | DX: Z01.818 Encounter for other preprocedural examination (principal) | CPT/HCPCS: 74246 ==

== ENCOUNTER 2023-04-22 08:08 | Outpatient (AMB) | payer OTHER, SELFPAY ==
--- NOTE | 2023-04-22 08:14 | A.OFFVIS_ITS ---
Intake VS Expanded 04/22/23 08:21 Height 5 ft 4 in Weight 286 lb 3.2 oz BMI 49.1 BP 131/63 Blood Pressure Location Rt brachial Blood Pressure Position Sitting Pulse 65 Pulse Source Pulse Oximeter Temp 97.5 F Temperature Source Temporal Artery Scan Pulse Oximetry 99 Oxygen Delivery Method Room Air Body Fat 134.8 Body Fat Percentage 47.1 Free Fat Mass 151.4 Muscle Mass 143.8 Visceral Mass 15.0 Water Mass 108.6 BMR 2,176 Intake Visit Reasons: (OV) F/U SWL Cardiograph Operator Required: Yes Cardiograph Operator Name: office cmi Allergies No Known Allergies Allergy (Verified 04/22/23 08:18) Medication List - Last Reconciled 04/22/23 by SANDRA Bowers albuterol sulfate 90 mcg/actuation (ProAir HFA) 2 puffs inhalation Q4-6H PRN alcohol swabs (Easy Touch Alcohol Prep Pads) pad topical BID baclofen 10 mg PO TID PRN blood sugar diagnostic (FreeStyle Lite Strips) As directed blood-glucose meter (FreeStyle Lite Meter kit) As directed cetirizine 10 mg PO DAILY PRN cholecalciferol (vitamin D3) 125 mcg PO DAILY 90 days clotrimazole-betamethasone 1-0.05 % 1 appl topical BID cyanocobalamin (vitamin B-12) 500 mcg PO DAILY diclofenac sodium 1% grams topical BID fluticasone furoate 100 mcg/actuation (Arnuity Ellipta) 1 inh inhalation DAILY fluticasone propionate 50 mcg/actuation (Flonase Allergy Relief) 2 sprays intranasal DAILY fluticasone propionate 110 mcg/actuation (Flovent HFA) 2 puffs inhalation BID gabapentin 600 mg PO TID hydroxychloroquine 200 mg PO BID insulin lispro (Admelog U-100 Insulin lispro) 1 sliding scale dose subcut USEASDIRECTD insulin pump cart,automated,BT (Omnipod 5 G6 Pods (Gen 5) subcutaneous cartridge) As directed lancets (FreeStyle Lancets) As directed montelukast 10 mg PO BEDTIME pantoprazole 40 mg PO DAILY prazosin 2 mg PO BEDTIME sertraline mg PO HPI HPI Comments History of Present Illness Details The patient is a pleasant 32 year old female who returns to the clinic for pre-operative surgical weight loss management. They were last seen in the office on 03/18/23, recorded weight at that time was 289.4 pounds, with a BMI of 49.7. Today's weight is 286.2 pounds and BMI is 49.2. There has been a weight loss of 13.4 pounds since initiating the surgical weight loss program on 01/07/23 with a total body weight loss of 4.4 %. Pre op work up completed as follows: SWL classes:? 11/23 BH appts: cleared-02/24/23 ? ? RD appts: cleared-03/26/23 Labs: 01/07/23-HgbA1c:7.1, B12:251, Low D H. pylori: 01/07/23-neg CXR: 01/07/23-nad EK01/07/23-normal ABD U/S: 03/13/23-fatty liver UGI: 04/11/23-normal Sleep study 02/06/23-Mod MARIAJOSE-recc CPAP She states that she has more energy and has been drinking more water and doing more exercise. States she is following the meal plan. She reports some nausea wiht the pure protein and would like to change shake The patient reports she has had a significant improvement in her BS with reading 80-105 and her endocinologist stopped the trulicity and metformin.? Current meal plan includes: 3 Pure Protein shakes First shake (1 scoop in 8 oz low fat unsweetened almond milk) at 8am-10am Second shake, (1/2 scoop in 8 oz low fat unsweetened almond milk) at 11am-1pm 1 protein bar (Fulfil bars at [employer], [employer], or [employer]) at 2pm-4pm. Dinner at 4pm (10 forks of protein and 10 forks of salad/vegetables). Another shake with 1/2 scoop in 8 oz unsweetened almond milk at 7pm-9pm. Drinking 69-96 oz of water Current exercise plan includes: joined [employer] elliptical and treadmill, 4 days per week, 340-400 calories. PFSH Surgical History Hx of section Hx of eye surgery Family History Mother No problems noted. Father Hypertension Diabetes Neuropathy Brother No problems noted. Brother No problems noted. Sister Diabetes Sister No problems noted. Daughter Asthma Epilepsy Social History Alcohol intake: never Patient Tobacco Use Status: Never used Tobacco Review of Systems Const All systems reviewed & are unremarkable except as noted in HPI and below Physical Exam Vital Signs: Last Vital Signs Temp 97.5 F 04/22/23 08:21 Pulse 65 04/22/23 08:21 BP 131/63 04/22/23 08:21 Pulse Ox 99 04/22/23 08:21 Oxygen Delivery Method Room Air 04/22/23 08:21 BMI result Body Mass Index 49.1 Const General: healthy appearing and no acute distress Resp Effort & Inspection: normal respiratory effort Auscultation: clear to auscultation bilaterally Cardio Rate: regular rate Rhythm: regular rhythm GI Auscultation: normal bowel sounds Extrem General: Yes normal to inspection Assessment & Plan Assessment & Plan (1) Morbid obesity: Code(s): E66.01 - Morbid (severe) obesity due to excess calories Plan: change meal plan slightly 3 Premier Protein shakes First shake (1 scoop in 8 oz low fat unsweetened almond milk) at 8am-10am Second shake, (1 scoop in 8 oz low fat unsweetened almond milk) at 11am-1pm 1 protein bar (Fulfil bars at [employer], [employer], or [employer]) at 2pm-4pm. Dinner at 4pm (8 forks of protein and 8 forks of salad/vegetables). Another shake with 1 scoop in 8 oz unsweetened almond milk at 7pm-9pm. [employer] gym but increase by one day. RTC 1 month, goal 8 pound loss Coding Level of Care Code Est Pt Level 3 (66662) Diagnoses Morbid obesity E66.01
[2023-04-22 08:21] VITALS: BP 131/63; PULSE 65; TEMP 36.4; O2SAT 99; BMI 49.1
== END 2023-04-22 08:47 | disposition home or self-care (01) ==
PROVIDERS: Visit Provider Physician Assistant Surgical
DX: E66.01 Morbid (severe) obesity due to excess calories (principal); Z68.42 Body mass index [BMI] 45.0-49.9, adult
CPT/HCPCS: 99213

== ENCOUNTER → 2023-04-22 08:08 | Outpatient (BNVA) | payer OTHER, SELFPAY | PROVIDERS: Visit Provider Physician Assistant Surgical | DX: E66.01 Morbid (severe) obesity due to excess calories (principal); Z68.42 Body mass index [BMI] 45.0-49.9, adult | CPT/HCPCS: 99212 ==

== ENCOUNTER 2023-06-12 09:33 | Outpatient (AMB) | payer OTHER, SELFPAY ==
--- NOTE | 2023-06-12 09:36 | A.OFFVIS_ITS ---
Intake VS Expanded 06/12/23 09:50 BP 116/63 Blood Pressure Location Rt brachial Blood Pressure Position Sitting Pulse 68 Pulse Source Pulse Oximeter Temp 98.0 F Temperature Source Temporal Artery Scan Pulse Oximetry 99 Oxygen Delivery Method Room Air Height 5 ft 4 in Weight 291 lb 3.2 oz BMI 50.0 Body Fat % 46.7 Body Fat Mass 135.8 Fat Free Mass 155.2 Visceral Fat Rating 15.0 Body Water % 38.3 Body Water Mass 111.4 Muscle Mass/Score 147.4 Basal Metabolic Rate/Score 2,228 Intake Visit Reasons: (OV) F/U SWL Tube Blower Required: Yes Tube Blower Name: office cmi Allergies No Known Allergies Allergy (Verified 06/12/23 09:42) Medication List - Last Reconciled 06/12/23 by SANDRA Bowers albuterol sulfate 90 mcg/actuation (ProAir HFA) 2 puffs inhalation Q4-6H PRN alcohol swabs (Easy Touch Alcohol Prep Pads) pad topical BID baclofen 10 mg PO TID PRN blood sugar diagnostic (FreeStyle Lite Strips) As directed blood-glucose meter (FreeStyle Lite Meter kit) As directed cetirizine 10 mg PO DAILY PRN cholecalciferol (vitamin D3) 125 mcg PO DAILY 90 days clotrimazole-betamethasone 1-0.05 % 1 appl topical BID cyanocobalamin (vitamin B-12) 500 mcg PO DAILY diclofenac sodium 1% grams topical BID fluticasone furoate 100 mcg/actuation (Arnuity Ellipta) 1 inh inhalation DAILY fluticasone propionate 50 mcg/actuation (Flonase Allergy Relief) 2 sprays intranasal DAILY fluticasone propionate 110 mcg/actuation (Flovent HFA) 2 puffs inhalation BID gabapentin 600 mg PO TID hydroxychloroquine 200 mg PO BID insulin lispro (Admelog U-100 Insulin lispro) 1 sliding scale dose subcut USEASDIRECTD insulin pump cart,automated,BT (Omnipod 5 G6 Pods (Gen 5) subcutaneous cartridge) As directed lancets (FreeStyle Lancets) As directed montelukast 10 mg PO BEDTIME pantoprazole 40 mg PO DAILY prazosin 2 mg PO BEDTIME sertraline mg PO HPI HPI Comments History of Present Illness Details The patient is a pleasant 32 year old female who returns to the clinic for pre-operative surgical weight loss management. They were last seen in the office on 04/22/23, recorded weight at that time was 286.2 pounds, with a BMI of 49.1. Today's weight is 291.2 pounds and BMI is 50. There has been a weight loss of 8.4 pounds since initiating the surgical weight loss program on 01/07/23 with a total body weight loss of 2.8 %. Pre op work up completed as follows: SWL classes:? 11/23 BH appts: cleared-02/24/23 ? ? RD appts: cleared-03/26/23 Labs: 01/07/23-HgbA1c:7.1, B12:251, Low D H. pylori: 01/07/23-neg CXR: 01/07/23-nad EK01/07/23-normal ABD U/S: 03/13/23-fatty liver UGI: 04/11/23-normal Sleep study 02/06/23-Mod MARIAJOSE-recc CPAP She states that she has changed the shake no further nausea, and less hunger in the morning. No communication by text. blood sugars 120-160 Discussed t last appointment goal of 8 pound loss, has had a 5 pound gain. She is not eating fast foods, states she is following the meal plan. Reports some mild constipation Current meal plan includes: 3 Premier Protein shakes First shake (1 scoop in 8 oz low fat unsweetened almond milk) at 8am-10am Second shake, (1 scoop in 8 oz low fat unsweetened almond milk) at 11am-1pm 1 protein bar (Fulfil bars at [employer], [employer], or [employer]) at 2pm-4pm. Dinner at 4pm (8 forks of protein and 8 forks of salad/vegetables). Another shake with 1 scoop in 8 oz unsweetened almond milk at 7pm-9pm. Drinking 69-96 oz of water Current exercise plan includes: 4 days per week, [employer], treadmi ll, bike, 350 calories on treadmill, 150-200 calories on bike. PFSH Surgical History Hx of eye surgery Hx of section Family History Mother No problems noted. Father Hypertension Diabetes Neuropathy Brother No problems noted. Brother No problems noted. Sister Diabetes Sister No problems noted. Daughter Asthma Epilepsy Social History Alcohol intake: never Patient Tobacco Use Status: Never used Tobacco Assessment & Plan Assessment & Plan (1) Morbid obesity: Code(s): E66.01 - Morbid (severe) obesity due to excess calories Plan: Patient was encouraged to communicate by text weekly, her weight and if she is having any problems with the plans. She has intermittently not done the 3rd shake. She does state that she is going to the gym 4 days a week and has been encouraged to increase this to 5 her 6 days a week. Regarding her constipation, she has been given a prescription for senna, 2 tabs at night as needed. She will return to the office in approximately 3 weeks. Medications: New sennosides (senna) 17.2 mg (2 x 8.6 mg) PO BEDTIME 90 days PRN 180 tabs 0RF constipation Coding Level of Care Code Est Pt Level 3 (03068) Diagnoses Morbid obesity E66.01
[2023-06-12 09:50] VITALS: BP 116/63; PULSE 68; TEMP 36.7; O2SAT 99; BMI 50.0
== END 2023-06-12 10:10 | disposition home or self-care (01) ==
PROVIDERS: Visit Provider Physician Assistant Surgical
DX: E66.01 Morbid (severe) obesity due to excess calories (principal); Z68.43 Body mass index [BMI] 50.0-59.9, adult
CPT/HCPCS: 99214

== ENCOUNTER → 2023-06-12 09:33 | Outpatient (BNVA) | payer OTHER, SELFPAY | PROVIDERS: Visit Provider Physician Assistant Surgical | DX: E66.01 Morbid (severe) obesity due to excess calories (principal); Z68.43 Body mass index [BMI] 50.0-59.9, adult | CPT/HCPCS: 99212 ==

== ENCOUNTER 2023-07-09 10:34 | Outpatient (AMB) | payer OTHER, SELFPAY ==
--- NOTE | 2023-07-09 11:00 | A.OFFVIS_ITS ---
Intake Vital Signs 07/09/23 11:04 Height 5 ft 4 in Weight 301 lb 2 oz BMI 51.7 BP 120/82 Blood Pressure Location Rt brachial Pulse 66 Pulse Source Pulse Oximeter Pulse Oximetry (%) 97 Oxygen Delivery Method Room Air Intake Visit Reasons: 4m follow up Snoring-Confirmed Intake Note: F/U mariajose Cigarette Machine Operator Required: Yes Allergies No Known Allergies Allergy (Verified 07/09/23 11:00) HPI HPI Comments History of Present Illness Details 32 y/o female patient presents for follo w up of MARIAJOSE on CPAP. Pt underwent PSG sleep study. The baseline portion of the study was significant for a moderate degree of sleep apnea with increased severity in REM sleep. The AHI was 19/hr, REM AHI was 40/hr and oxygen kaela was 86%. Pt was trialed on CPAP 4-8cmH2O. The breathing and oxygenation stabilized on all pressure. Pt started CPAP at 8cmH2O. The CPAP compliance and therapy response (06/03/23-07/02/23) reviewed. The usages days 100% and the average usage hours 7 hrs 50 min. The residual AHI was 0.2/hr. Pt reports she feels good since she start CPAP. She has less snoring, rested sleep and wakes up refreshed. She has more energy during daytime. PFSH Surgical History Hx of eye surgery Hx of section Family History Mother No problems noted. Father Hypertension Diabetes Neuropathy Brother No problems noted. Brother No problems noted. Sister Diabetes Sister No problems noted. Daughter Asthma Epilepsy (Updated 07/09/23 @ 11:04 by Renate Pickens GARNETT MACHINE OPERATOR) Alcohol intake: never Patient Tobacco Use Status: Never used Tobacco Review of Systems Const All systems reviewed & are unremarkable except as noted in HPI and below ENT Reports Normal hearing present Neuro Reports Normal hearing present Physical Exam Vital Signs: Last Vital Signs Pulse 66 07/09/23 11:04 BP 120/82 07/09/23 11:04 Pulse Ox 97 07/09/23 11:04 Oxygen Delivery Method Room Air 07/09/23 11:04 Const General: cooperative Nutritional Appearance: obese Orientation/consciousness: patient oriented x3 Limitations: language barrier Neck Neck: Yes full ROM and Yes supple Resp Effort & Inspection: normal respiratory effort and able to speak in complete sentences Neuro General: patient oriented x3, gait normal, moves all extremities and no focal motor deficits Cranial nerves: Yes Bilaterally intact EOM present, Yes Normal facial strength present, Yes Midline tongue present, Yes Symmetric palate elevation present and Yes Normal hearing present Cognition (Neuro): normal cognition Gait exam (Neuro): Normal gait present Motor exam (neuro): 5/5 motor strength present throughout, Pronator motor function not present and no tremor noted Psych Appearance: grossly normal Mental Status: mental status grossly normal Speech and movement: Normal speech and movement present Affect: normal affect Attitude: cooperative Assessment & Plan Assessment & Plan (1) MARIAJOSE (obstructive sleep apnea): Comment: A moderate degree of sleep apnea with increased severity in REM. The AHI was 10/hr, REM AHI was 40/hr and oxygen kaela was 86% Code(s): G47.33 - Obstructive sleep apnea (adult) (pediatric) Plan Advised patient to continue to use CPAP at 8cmH2O as patient experiences good clinical effects. Stressed compliance, use CPAP nightly and more than 4 hours. Clean mask and tubing regularly and change the supplies routinely. Sleep hygiene education provided, try to have routine sleep schedule and physically active during daytime. Wt reduction advised. Coding Level of Care Code Est Pt Level 3 (08956) Diagnoses MARIAJOSE (obstructive sleep apnea) G47.33
[2023-07-09 11:04] VITALS: BP 120/82; PULSE 66; O2SAT 97; BMI 51.7
== END 2023-07-09 11:20 | disposition home or self-care (01) ==
PROVIDERS: Visit Provider Nurse Practitioner Family
DX: G47.33 Obstructive sleep apnea (adult) (pediatric) (principal)
CPT/HCPCS: 99213

== ENCOUNTER → 2023-07-09 10:34 | Outpatient (BNVA) | payer OTHER, SELFPAY | PROVIDERS: Visit Provider Nurse Practitioner Family | DX: G47.33 Obstructive sleep apnea (adult) (pediatric) (principal); Z99.89 Dependence on other enabling machines and devices | CPT/HCPCS: 99212 ==

== ENCOUNTER 2023-07-22 08:58 | Outpatient (AMB) | payer OTHER, SELFPAY ==
--- NOTE | 2023-07-22 09:24 | MHC.OFFVISWM ---
Intake VS Expanded 07/22/23 09:32 BP 134/65 Blood Pressure Location Rt brachial Blood Pressure Position Sitting Pulse 63 Pulse Source Pulse Oximeter Temp 97.6 F Temperature Source Temporal Artery Scan Pulse Oximetry 100 Oxygen Delivery Method Room Air Height 5 ft 4 in Weight 289 lb 6.4 oz BMI 49.7 Body Fat % 44.9 Body Fat Mass 134.2 Fat Free Mass 164.4 Visceral Fat Rating 15.0 Body Water % 39.4 Body Water Mass 117.8 Muscle Mass/Score 156.4 Basal Metabolic Rate/Score 2,353 Intake Visit Reasons: (OV) F/U SWL Store Receiver Required: Yes Store Receiver Name: [id number] Allergies No Known Allergies Allergy (Verified 07/22/23 09:30) Medication List - Last Reconciled 07/22/23 by SANDRA Bowers albuterol sulfate 90 mcg/actuation (ProAir HFA) 2 puffs inhalation Q4-6H PRN alcohol swabs (Easy Touch Alcohol Prep Pads) pad topical BID baclofen 10 mg PO TID PRN blood sugar diagnostic (FreeStyle Lite Strips) As directed blood-glucose meter (FreeStyle Lite Meter kit) As directed cetirizine 10 mg PO DAILY PRN cholecalciferol (vitamin D3) 125 mcg PO DAILY 90 days clotrimazole-betamethasone 1-0.05 % 1 appl topical BID cyanocobalamin (vitamin B-12) 500 mcg PO DAILY diclofenac sodium 1% grams topical BID fluticasone furoate 100 mcg/actuation (Arnuity Ellipta) 1 inh inhalation DAILY fluticasone propionate 50 mcg/actuation (Flonase Allergy Relief) 2 sprays intranasal DAILY fluticasone propionate 110 mcg/actuation (Flovent HFA) 2 puffs inhalation BID gabapentin 600 mg PO TID hydroxychloroquine 200 mg PO BID insulin lispro (Admelog U-100 Insulin lispro) 1 sliding scale dose subcut USEASDIRECTD insulin pump cart,automated,BT (Omnipod 5 G6 Pods (Gen 5) subcutaneous cartridge) As directed lancets (FreeStyle Lancets) As directed montelukast 10 mg PO BEDTIME pantoprazole 40 mg PO DAILY prazosin 2 mg PO BEDTIME sennosides (senna) 17.2 mg (2 x 8.6 mg) PO BEDTIME PRN 90 days sertraline 100 mg PO DAILY HPI HPI Comments History of Present Illness Details The patient is a pleasant 32 year old female who returns to the clinic for pre-operative surgical weight loss management. They were last seen in the office on 06/12/23, recorded weight at that time was 291.2 pounds, with a BMI of 50. Today's weight is 298.8 pounds and BMI is 51.3. There has been a weight loss of 0.8 pounds since initiating the surgical weight loss program on 01/07/23 with a total body weight loss of 0.26 %. Pre op work up completed as follows: SWL classes:? 11/23 BH appts: cleared-02/24/23 ? ? RD appts: cleared-03/26/23 Labs: 01/07/23-HgbA1c:7.1, B12:251, Low D H. pylori: 01/07/23-neg CXR: 01/07/23-nad EK01/07/23-normal ABD U/S: 03/13/23-fatty liver UGI: 04/11/23-normal Sleep study 02/06/23-Mod MARIAJOSE-recc CPAP She states she has been stressed at home and over the last month and especially over the last week . She got last week. She is not sure she is able to commit to the program. She states she is following the meal plan but not doing the last shake and over this last week. She has had FF and only one meal per day. She has had a difficult time following the plans. She will have one last chance to be successful with goal of 10 pound loss in 1 month Current meal plan includes: 3 Premier Protein shakes First shake (1 scoop in 8 oz low fat unsweetened almond milk) at 8am-10am Second shake, (1 scoop in 8 oz low fat unsweetened almond milk) at 11am-1pm 1 protein bar (Fulfil bars at [employer], [employer], or [employer]) at 2pm-4pm. Dinner at 4pm (8 forks of protein and 8 forks of salad/vegetables). Another shake with 1 scoop in 8 oz unsweetened almond milk at 7pm-9pm. Drinking 69-96 oz of water Current exercise plan includes: PF-stationary bike, treadmill, 4 x per week. states burning 700-100 calories on her watch. PFSH Surgical History Hx of eye surgery Hx of section Family History Mother No problems noted. Father Hypertension Diabetes Neuropathy Brother No problems noted. Brother No problems noted. Sister Diabetes Sister No problems noted. Daughter Asthma Epilepsy Social History Alcohol intake: never Patient Tobacco Use Status: Never used Tobacco Review of Systems Const All systems reviewed & are unremarkable except as noted in HPI and below Physical Exam Const General: healthy appearing and no acute distress Resp Effort & Inspection: normal respiratory effort Auscultation: clear to auscultation bilaterally Cardio Rate: regular rate Rhythm: regular rhythm GI Auscultation: normal bowel sounds Extrem General: Yes normal to inspection Assessment & Plan Assessment & Plan (1) Morbid obesity: Code(s): E66.01 - Morbid (severe) obesity due to excess calories Plan: Last opportunity to be successful. She has been encouraged to text her weight weekly and follow the meal plan exactly. Encouraged to track calories burned on the machines at the gym. Goal 10 lb loss in 1 month. Coding Level of Care Code Est Pt Level 3 (91424) Diagnoses Morbid obesity E66.01
[2023-07-22 09:32] VITALS: BP 134/65; PULSE 63; TEMP 36.4; O2SAT 100; BMI 49.7
== END 2023-07-22 10:02 | disposition home or self-care (01) ==
PROVIDERS: Visit Provider Physician Assistant Surgical
DX: E66.01 Morbid (severe) obesity due to excess calories (principal); Z68.42 Body mass index [BMI] 45.0-49.9, adult
CPT/HCPCS: 99213

== ENCOUNTER → 2023-07-22 08:58 | Outpatient (BNVA) | payer OTHER, SELFPAY | PROVIDERS: Visit Provider Physician Assistant Surgical | DX: E66.01 Morbid (severe) obesity due to excess calories (principal); Z68.42 Body mass index [BMI] 45.0-49.9, adult | CPT/HCPCS: 99212 ==

== ENCOUNTER 2023-08-29 09:14 | Outpatient (AMB) | payer OTHER, SELFPAY ==
--- NOTE | 2023-08-29 09:03 | A.OFFVIS_ITS ---
Intake Intake Visit Reasons: (TV) F/U SWL Retail Client Solutions Consultant Required: No Allergies No Known Allergies Allergy (Verified 07/22/23 09:30) Medication List - Last Reconciled 08/29/23 by SANDRA Bowers albuterol sulfate 90 mcg/actuation (ProAir HFA) 2 puffs inhalation Q4-6H PRN alcohol swabs (Easy Touch Alcohol Prep Pads) pad topical BID baclofen 10 mg PO TID PRN blood sugar diagnostic (FreeStyle Lite Strips) As directed blood-glucose meter (FreeStyle Lite Meter kit) As directed cetirizine 10 mg PO DAILY PRN cholecalciferol (vitamin D3) 125 mcg PO DAILY 90 days clotrimazole-betamethasone 1-0.05 % 1 appl topical BID cyanocobalamin (vitamin B-12) 500 mcg PO DAILY diclofenac sodium 1% grams topical BID fluticasone furoate 100 mcg/actuation (Arnuity Ellipta) 1 inh inhalation DAILY fluticasone propionate 50 mcg/actuation (Flonase Allergy Relief) 2 sprays intranasal DAILY fluticasone propionate 110 mcg/actuation (Flovent HFA) 2 puffs inhalation BID gabapentin 600 mg PO TID hydroxychloroquine 200 mg PO BID insulin lispro (Admelog U-100 Insulin lispro) 1 sliding scale dose subcut USEASDIRECTD insulin pump cart,automated,BT (Omnipod 5 G6 Pods (Gen 5) subcutaneous cartridge) As directed lancets (FreeStyle Lancets) As directed montelukast 10 mg PO BEDTIME pantoprazole 40 mg PO DAILY prazosin 2 mg PO BEDTIME sennosides (senna) 17.2 mg (2 x 8.6 mg) PO BEDTIME PRN 90 days sertraline 100 mg PO DAILY HPI HPI Comments History of Present Illness Details The patient is a pleasant 32 year old female who returns to the clinic for pre-operative surgical weight loss management. They were last seen in the office on 07/22/23, recorded weight at that time was 289.4 pounds, with a BMI of 49.7. Today's weight is 292.1 pounds and BMI is 50.5. There has been a weight loss of 7.5 pounds since initiating the surgical weight loss program on 01/07/23 with a total body weight loss of 2.5 %. Pre op work up completed as follows: SWL classes:? 11/23 BH appts: cleared-02/24/23 ? ? RD appts: cleared-03/26/23 Labs: 01/07/23-HgbA1c:7.1, B12:251, Low D H. pylori: 01/07/23-neg CXR: 01/07/23-nad EK01/07/23-normal ABD U/S: 03/13/23-fatty liver UGI: 04/11/23-normal Sleep study 02/06/23-Mod MARIAJOSE-recc CPAP She states she is trying to get Ozempic from her seamer panty hose. She states she her stress at home has improved. She states she is following the meal plan but not doing the last shake and over this last week. She has had FF and only one meal per day. She has had a difficult time following the plans. She will have one last chance to be successful with goal of 10 pound loss in 1 month Current meal plan includes: 3 Premier Protein shakes First shake (1 scoop in 8 oz low fat unsweetened almond milk) at 8am-10am Second shake, (1 scoop in 8 oz low fat unsweetened almond milk) at 11am-1pm 1 protein bar (Fulfil bars at [employer], [employer], or [employer]) at 2pm-4pm. Dinner at 4pm (8 forks of protein and 8 forks of salad/vegetables). Another shake with 1 scoop in 8 oz unsweetened almond milk at 7pm-9pm. Drinking 48 oz of water Current exercise plan includes: PF-stationary bike, treadmill, 3-4 x per week. 90 minutes, does not remember how many calories she is burning. PFSH Surgical History Hx of eye surgery Hx of section Family History Mother No problems noted. Father Hypertension Diabetes Neuropathy Brother No problems noted. Brother No problems noted. Sister Diabetes Sister No problems noted. Daughter Asthma Epilepsy Social History Alcohol intake: never Patient Tobacco Use Status: Never used Tobacco Assessment & Plan Assessment & Plan (1) Morbid obesity: Code(s): E66.01 - Morbid (severe) obesity due to excess calories Plan: Patient states she is following her meal plan however is unable to give data regarding her calories burned while exercising. I encouraged her to take a picture of the machine and to increased exercise days to 5 days per week. We will continue current meal plan and base recommendations based on data. She will return to the office in 3 weeks time. Telehealth Telehealth Location of provider rendering services: practice address Location of patient: address on file Patient Identification confirmed using: Name, : Yes Telehealth method: voice only Patient verbally consented to treatment: Yes Patient verbally consented to billing insurance company: Yes Patient informed of any privacy concerns related to visit: Yes Minutes spent on Phone/Video with Pt.: 15 Coding Level of Care Code Est Pt Level 3 (63241) Diagnoses Morbid obesity E66.01 Time Spent (min) 23
== END 2023-08-29 09:35 | disposition home or self-care (01) ==
LOC: HO.HBS 09:14
PROVIDERS: Visit Provider Physician Assistant Surgical
DX: E66.01 Morbid (severe) obesity due to excess calories (principal); Z68.43 Body mass index [BMI] 50.0-59.9, adult
CPT/HCPCS: 99213

== ENCOUNTER → 2023-08-29 09:14 | Outpatient (BNVA) | payer OTHER, SELFPAY | PROVIDERS: Visit Provider Physician Assistant Surgical ==

== ENCOUNTER 2023-10-13 13:02 | Outpatient (AMB) | payer OTHER, SELFPAY ==
[2023-10-13 10:55] VITALS: BMI 50.2
--- NOTE | 2023-10-13 10:55 | A.OFFVIS_ITS ---
Intake VS Expanded 10/13/23 10:55 Height 5 ft 4 in Weight 292 lb 7 oz BMI 50.2 Body Fat % 67.8 Body Fat Mass 198.4 Fat Free Mass 94.2 Visceral Fat Rating 29 Body Water % 22.1 Body Water Mass 64.6 Muscle Mass/Score 88.7 Basal Metabolic Rate/Score 1,277 Intake Visit Reasons: (TV) F/U SWL Software Support Technician Required: Yes Software Support Technician Name: ayush # [id number] Allergies No Known Allergies Allergy (Verified 07/22/23 09:30) Medication List - Last Reconciled 10/13/23 by SANDRA Bowers albuterol sulfate 90 mcg/actuation (ProAir HFA) 2 puffs inhalation Q4-6H PRN alcohol swabs (Easy Touch Alcohol Prep Pads) pad topical BID baclofen 10 mg PO TID PRN blood sugar diagnostic (FreeStyle Lite Strips) As directed blood-glucose meter (FreeStyle Lite Meter kit) As directed cetirizine 10 mg PO DAILY PRN cholecalciferol (vitamin D3) 125 mcg PO DAILY 90 days clotrimazole-betamethasone 1-0.05 % 1 appl topical BID cyanocobalamin (vitamin B-12) 500 mcg PO DAILY diclofenac sodium 1% grams topical BID fluticasone furoate 100 mcg/actuation (Arnuity Ellipta) 1 inh inhalation DAILY fluticasone propionate 50 mcg/actuation (Flonase Allergy Relief) 2 sprays intra nasal DAILY fluticasone propionate 110 mcg/actuation (Flovent HFA) 2 puffs inhalation BID gabapentin 600 mg PO TID hydroxychloroquine 200 mg PO BID insulin lispro (Admelog U-100 Insulin lispro) 1 sliding scale dose subcut USEASDIRECTD insulin pump cart,automated,BT (Omnipod 5 G6 Pods (Gen 5) subcutaneous cartridge) As directed lancets (FreeStyle Lancets) As directed montelukast 10 mg PO BEDTIME pantoprazole 40 mg PO DAILY prazosin 2 mg PO BEDTIME sennosides (senna) 17.2 mg (2 x 8.6 mg) PO BEDTIME PRN 90 days sertraline 100 mg PO DAILY HPI HPI Comments History of Present Illness Details The patient is a pleasant 32 year old female who returns to the clinic for pre-operative surgical weight loss management. They were last seen in the office on 08/29/23, recorded weight at that time was 292.1 pounds, with a BMI of 50.1. Today's weight is 292.7 pounds and BMI is 50.2. There has been a weight loss of 6.9 pounds since initiating the surgical weight loss program on 01/07/23 with a total body weight loss of 2.3 %. Pre op work up completed as follows: SWL classes:? 11/23 BH appts: cleared-02/24/23 ? ? RD appts: cleared-03/26/23 Labs: 01/07/23-HgbA1c:7.1, B12:251, Low D H. pylori: 01/07/23-neg CXR: 01/07/23-nad EK01/07/23-normal ABD U/S: 03/13/23-fatty liver UGI: 04/11/23-normal Sleep study 02/06/23-Mod MARIAJOSE-recc CPAP She states she was in July and then had a miscarriage, she also had covid and has not been able to exercise. She states she is going to break from the program at this time. She is welcome to return in the future if she wishes. Current recommended meal plan includes: 3 Premier Protein shakes First shake (1 scoop in 8 oz low fat unsweetened almond milk) at 8am-10am Second shake, (1 scoop in 8 oz low fat unsweetened almond milk) at 11am-1pm 1 protein bar (Fulfil bars at [employer], [employer], or [employer]) at 2pm-4pm. Dinner at 4pm (8 forks of protein and 8 forks of salad/vegetables). Another shake with 1 scoop in 8 oz unsweetened almond milk at 7pm-9pm. Drinking 48 oz of water Current exercise plan includes: PF-stationary bike, treadmill, 3-4 x per week. 90 minutes, does not remember how many calories she is burning. PFSH Surgical History Hx of eye surgery Hx of section Family History Mother No problems noted. Father Hypertension Diabetes Neuropathy Brother No problems noted. Brother No problems noted. Sister Diabetes Sister No problems noted. Daughter Asthma Epilepsy Social History Alcohol intake: never Patient Tobacco Use Status: Never used Tobacco Assessment & Plan Assessment & Plan (1) Morbid obesity: Code(s): E66.01 - Morbid (severe) obesity due to excess calories Plan: Patient is going to withdrawal from the program at this time. She has other issues going on in her life and is unable to commit to the program. She may return in the future if she wishes. In the meantime I have suggested that she try to follow the meal plan as accurately as she can and to exercise 4-5 times per week. Telehealth Telehealth Location of provider rendering services: practice address Location of patient: address on file Patient Identification confirmed using: Name, : Yes Telehealth method: voice only Patient verbally consented to treatment: Yes Patient verbally consented to billing insurance company: Yes Patient informed of any privacy concerns related to visit: Yes Minutes spent on Phone/Video with Pt.: 12 Coding Level of Care Code Tele Est Pt Level 3 (84036) Diagnoses Morbid obesity E66.01 Time Spent (min) 16
== END 2023-10-13 13:06 | disposition home or self-care (01) ==
LOC: HO.HBS 13:02
PROVIDERS: Visit Provider Physician Assistant Surgical
DX: E66.01 Morbid (severe) obesity due to excess calories (principal)
CPT/HCPCS: 99213

== ENCOUNTER → 2023-10-13 13:02 | Outpatient (BNVA) | payer OTHER, SELFPAY | PROVIDERS: Visit Provider Physician Assistant Surgical | DX: E66.01 Morbid (severe) obesity due to excess calories (principal) ==

== ENCOUNTER 2024-07-06 08:22 | Outpatient (AMB) | payer OTHER, SELFPAY ==
[2024-07-06 08:25] VITALS: BMI 50.1
--- NOTE | 2024-07-06 08:25 | A.OFFVIS_ITS ---
Vital Signs 07/06/24 08:25 Height 5 ft 4 in Weight 292 lb BMI 50.1 Intake Visit Reasons: 1 yr f/u - Snoring - Confirmed Intake Note: Patient presents for snoring. needs adjustment to her cpap patient feels like it's not strong eough. [employer] Services: [employer] Present Allergies No Known Allergies Allergy (Verified 07/06/24 08:26) Medication List - Last Reconciled 07/06/24 by Luz Mar PA-C albuterol sulfate 90 mcg/actuation (ProAir HFA) 2 puffs inhalation Q4-6H PRN alcohol swabs (Easy Touch Alcohol Prep Pads) pad topical BID baclofen 10 mg PO TID PRN blood sugar diagnostic (FreeStyle Lite Strips) As directed blood-glucose meter (FreeStyle Lite Meter kit) As directed cetirizine 10 mg PO DAILY PRN cholecalciferol (vitamin D3) 125 mcg PO DAILY 90 days clotrimazole-betamethasone 1-0.05 % 1 appl topical BID cyanocobalamin (vitamin B-12) 500 mcg PO DAILY diclofenac sodium 1% grams topical BID fluticasone furoate 100 mcg/actuation (Arnuity Ellipta) 1 inh inhalation DAILY fluticasone propionate 50 mcg/actuation (Flonase Allergy Relief) 2 sprays intranasal DAILY fluticasone propionate 110 mcg/actuation (Flovent HFA) 2 puffs inhalation BID hydroxychloroquine 200 mg PO BID insulin lispro (Admelog U-100 Insulin lispro) 1 sliding scale dose subcut USEASDIRECTD insulin pump cart,automated,BT (Omnipod 5 G6 Pods (Gen 5) subcutaneous cartridge) As directed lancets (FreeStyle Lancets) As directed montelukast 10 mg PO BEDTIME pantoprazole 40 mg PO DAILY prazosin 2 mg PO BEDTIME sennosides (senna) 17.2 mg (2 x 8.6 mg) PO BEDTIME PRN 90 days sertraline 100 mg PO DAILY HPI Comments Details: 33 y/o female with h/o diabetes, and asthma presents for one year follow up for MARIAJOSE. Pt reports that she is in wt management program, for which she sees a field auditor. She is still snoring and gasping, she wakes up 2-3 times a night. Pt reports excessive daytime sleepiness, she can fall asleep anywhere when she is inactive. She continues to feel like she is being suffocated as pressures are not sufficient for her, she called [facility] to have the pressures adjusted but they wanted her to undergo a titration study prior to adjusting the pressures. She has tried the nose pillow, however likes the mask she uses now. She cleans her mask daily, changes filters, uses distilled water. CPAP Compliance Report: >4 hours total 99% Average use 6 hours and 43 min Auto set Pressures [id number] Leaks 0.5- 15.2 AHI 0.5 Sleep questionnaire: Have you ever been diagnosed with a sleep disorder? Yes, MARIAJOSE. Have you ever had a sleep study in the past? Yes. Have you ever been treated for a sleep disorder? Not yet. Do you take medications for a sleep disorder? Prazosin. Do you snore? Yes. Do you wake up gasping at night? Yes, she feels like she is suffocating. Do you have episodes of apneas? Yes. If yes, are they witnessed? Yes, by her family members. Do you have episodes of nocturnal chest pain or dyspnea? No Do you have difficulty initiating sleep? Yes, difficulty falling back asleep at night. Do you have difficulty maintaining sleep? Yes. Do you wake up tired? Yes. Do you have headaches upon awakening? Yes, sometimes. Do you wake up with dry mouth or throat? Yes. Do you have GERD? Yes. Do you have nocturia? Yes, 2 times at night. Do you have nocturnal leg cramps? Yes. Do you have symptoms of restless legs? Yes. Do you act out your dreams? Yes, yelling. Sleep hygiene questionnaire: What is your usual sleep routine? Usual bedtime is at 10-11pm; Usual wake up time is at 5:30am. Do you take naps? Yes. Is your sleep environment cool, dark, and quiet? Yes. Do you exercise? No. Do you take caffeine or other stimulants? Yes, little coffee in the morning. Do you use electronics in bed? Yes. What is your work schedule? No. Hypersomnolence questionnaire: Do you have daytime tiredness or fatigue? Yes. Do you easily fall asleep when inactive? Yes. Have you ever had episodes of sudden weakness? No. Have you ever had episodes of sudden weakness associated with strong emotions? No. PFSH Surgical History Hx of eye surgery Hx of section Family History Mother No problems noted. Father Hypertension Diabetes Neuropathy Brother No problems noted. Brother No problems noted. Sister Diabetes Sister No problems noted. Daughter Asthma Epilepsy Social History Alcohol intake: never Patient Tobacco Use Status: Never used Tobacco Review of Systems Const All systems reviewed & are unremarkable except as noted in HPI and below Reports as per HPI Physical Exam Vital Signs: BMI result Body Mass Index 50.1 Const General: cooperative, comfortable and no acute distress Orientation/consciousness: patient oriented x3 HEENT Face and sinus: Yes normal facial exam and Yes face symmetric Mouth: tongue normal Eyes Pupils: Equal, round and reactive pupils present, Pupils normal by confrontation and Pupil accommodation reflex normal Resp Effort & Inspection: normal respiratory effort and able to speak in complete sentences Neuro General: patient oriented x3 and moves all extremities Cranial nerves: Yes CN's II-XII intact bilaterally, Yes Facial sensation intact/muscles of mastication intact, Yes Equal, round and reactive pupils present, Yes Normal facial strength present, Yes Midline tongue present, Yes Symmetric palate elevation present, Yes Ability to bilaterally rotate head present and Yes Ability to bilaterally elevate shoulders present Gait exam (Neuro): Normal gait present Motor exam (neuro): 5/5 motor strength present throughout Results Reviewed Results Reviewed: Assessment & Plan Assessment & Plan (1) MARIAJOSE (obstructive sleep apnea): Comment: snoring and gasping for air Code(s): G47.33 - Obstructive sleep apnea (adult) (pediatric) Category: Medical Plan Continues to have intermittent sleep and excessive daytime sleepiness. Will send patient for a sleep titration study. Weight reduction emphasized patient is working with a field auditor. Orders: Orders RT PSG in-lab sleep titration Today G47.33 - Obstructive sleep apnea (adult) (pediatric) Coding Level of Care Code Est Pt Level 3 (62197) Diagnoses MARIAJOSE (obstructive sleep apnea) G47.33
== END 2024-07-06 09:03 | disposition home or self-care (01) ==
PROVIDERS: Absent Provider Psychiatry & Neurology Neurology; Visit Provider Physician Assistant Medical
DX: G47.33 Obstructive sleep apnea (adult) (pediatric) (principal)
CPT/HCPCS: 99213

== ENCOUNTER → 2024-07-06 08:22 | Outpatient (BNVA) | payer OTHER, SELFPAY | PROVIDERS: Absent Provider Psychiatry & Neurology Neurology; Visit Provider Physician Assistant Medical | DX: G47.33 Obstructive sleep apnea (adult) (pediatric) (principal) | CPT/HCPCS: 99212 ==

== ENCOUNTER → 2024-07-28 19:30 | Outpatient (REF) | payer OTHER, SELFPAY ==
--- OUTSIDE RECORDS SUMMARY | 2024-07-29 03:22 | XMS_ITS | Continuity of Care Document ---
Author Organization [facility] Address [address] [place] [address] Phone Care Team Providers Care Side Seam Machine Operator Name Role Phone Macrina Aguillon MD Unavailable [...] Diagnoses Date Provider Office/outpati ent visit,est, mod [facility], [address] [place] [address], [facility], tel:[phone] MOB Medical heavy periods (chief complaint) Chest PainMenses, Irregular Bleeding, Pal Schrader. [address] [place] [address] [id number] [place], [place], [id number], . tel:[phone] [facility], [address] [place] [address], [id number], tel:[phone] MOB Medical abnormal pap (chief complaint) CHLAMYDIAL INFECTION NOSAmenorrhea, Missed Menses Draganescu Jazz. Betty Mallory, [id number] [place], [place], [facility], . tel:[phone], [facility], tel:[phone] [facility] Medical PAP test (chief complaint)h eadache (chief complaint) Pap Screen Routine LATH HAND ExamIntertrigo Viviancu Jazz. [address], [id number] [place], [place], [facility], . tel:[phone] [facility], [address] [place] [address], [facility], tel:[phone] [facility] Medical heavy periods (chief complaint)r .m.c visit (chief complaint) Obesity, MorbidFAM HX-DIABETES MELLITUSMenses, Irregular Bleeding, Jackieanescu Jazz. [address], [id number] [place], [place], [facility], . tel:[phone] Family History Family Member Type Diagnosis Age At Onset Father Problem (finding) Alive and well Father Problem (finding) Diabetes mellitus Mother Problem (finding) No relevant family hx Mother Problem (finding) raised blood lipids Mother Problem (finding) Diabetes mellitus Payers Payer name Insurance type Covered green party ID Authoriza tion(s) No Information Social History [...]
== END ==
LOC: HO.SL 19:30
PROVIDERS: PCP Physician Assistant Medical; Visit Provider Physician Assistant Medical
DX: G47.33 Obstructive sleep apnea (adult) (pediatric) (principal)
CPT/HCPCS: 95811

== ENCOUNTER → 2024-07-28 21:04 | Outpatient (BNV) | payer OTHER, SELFPAY | PROVIDERS: PCP Physician Assistant Medical; Visit Provider Psychiatry & Neurology Neurology | DX: G47.33 Obstructive sleep apnea (adult) (pediatric) (principal) | CPT/HCPCS: 95811 ==

== ENCOUNTER 2024-10-07 08:27 | Outpatient (REF) | payer OTHER, SELFPAY ==
--- OUTSIDE RECORDS SUMMARY | 2024-10-07 10:17 | XMS_ITS | Clinical Summary ---
Author Organization [facility] [address] [place] [address] Address [address] [place] [address] Phone Care Team Providers Care Manager Clinical Research Name Role Phone Branden Henson MD Primary Care Provider [phone] Allergies No known active allergies Medications insulin [...] 22 Active blood-glucose meter,continuou s (Dexcom G6 Ballistic Expert) misc 1 Device by Not Applicable route [...] mellitus type 2, wi th complication, on group home insulin pump 09/20/2022 Left carpal tunnel syndrome [...] OB provider when she gets established [facility]. Fibromyalgia 06/20/2020 Overview (05/20/2024): She is made [...] Description 08/05/2024 Telephone Adult Medicine - [address] [address] VargasKatie , [place], [place] 08/03/2024 8:09 AM EST - 08/03/2024 11:59 PM [facility] Hospital Encounter Radiology Department - [address] [address] Fatty liver Discharge Disposition: Home or Self [...] History Medical History Date Comments Diabetes mellitus ([facility]) DX:D iabetes mellitus (HCC) Asthma DX:Asthma Hypertension DX:Hypertension Morbid obesity with BMI of 5 0.0-59.9, adult ([facility]) DX:Morbid obesity with BMI o f 50.0-59.9, adult ([facility]) Fibromyalgia DX:Fibromyalgia Hyperlipidemia DX:Hyperlipidemi a Hepatic steatosis DX:Hepatic kathryn atosis DM (diabetes mellitus), type 2 with renal complications ([facility]) 09/30/2017 DX:DM (diabetes mellitus ), type 2 with renal complications ([facility]) H/O diabetic foot ulcer 09/30/2017 DX:H/O d iabetic foot ulcer Hyperlipidemia 09/30/2017 DX:Hyperlipidemi a Hypertension 09/30/2017 DX:Hypertension Microalbuminuria 09/30/2017 DX:Microalbumin uria Morbid obesity with BMI of 5 0.0-59.9, adult ([facility]) 09/30/2017 DX:Morbid obesity with BMI o f 50.0-59.9, adult ([facility]) Vitamin D deficiency 09/30/2017 DX:Vitamin D deficiency; COMMENT: 04/14/17 - Vitamin D 50,000 units weekly until recheck is normal. Uncomplicated asthma 11/05/2017 DX:Uncompli cated asthma Homeless 06/26/2018 DX:Homeless Diabetic peripheral neuropat hy ([facility]) 07/28/2018 DX:Diabetic peripheral neuro shaq (HCC) DM (diabetes mellitus), type 2 with neurological complications ([facility]) 09/30/2017 DX:DM (diabetes m ellitus), type 2 with neurological complications (HCC) DM (diabetes mellitus), type 2 with peripheral vascular complications ([facility]) 07/28/2018 DX:DM (diabetes mellitus), t ype 2 with peripheral vascular complications (HCC) Morbid obesity ([facility]) 05/21/2018 DX:Morb id obesity (HCC) Anemia DX:Anemia [...] 10:00 AM EDT Office Visit Urogynecology - [address] [address] Matilde Arnett MD [address] [place] [address] [address] [place] [address] 11/18/2024 8:30 AM EDT Office Visit [facility] Hematology Oncology [address] [place] [address] Charleen Agustin PA [address] [place] [address] Health Maintenance Due Date Last Done Comments [...] LAB CHEMISTRY METHOD 08/03/2024 12:13 PM EST [facility] Triglycerides 159(H) 0 - 150 mg/dL LAB CHEMISTRY METHOD 08/03/2024 12:13 PM EST [facility] HDL 41 >=40 mg/dL LAB CHEMISTRY METHOD 08/03/2024 12:13 PM EST [facility] LDL Calculated 104(H) 0 - 100 mg/dL LAB CHEMISTRY METHOD 08/03/2024 12:13 PM EST [facility] VLDL Cholesterol J Carlos 31.8 mg/dL LAB CHEMISTRY METHOD 08/03/2024 12:13 PM EST [facility] Non HDL Chol. (LDL+VLDL) 136 <145 mg/dL LAB CHEMISTRY METHOD 08/03/2024 12:13 PM EST [facility] Chol/HDL Ratio 4.3 0.0 - 4.4 LAB CHEMISTRY METHOD 08/03/2024 12:13 PM EST [facility] Blood Venous blood specimen / Unknown Venipuncture / Unknown 08/03/2024 8:43 AM EST 08/03/2024 8:43 AM EST us Kishan FLORES LAB BLOOD ORDERABLES Final Resu lt [facility] [address] [place] [address], [place] [phone] * Liver fibrosis, fibrotest-actitest panel (08/03/2024 8:43 [...] U/L 08/13/2024 7:39 PM EST [facility] Oedte-0-Cddusdjqqclc n 169 106 - 279 mg/dL 08/13/2024 7:39 PM EST [facility] Haptoglobin 189 43 - 212 mg/dL 08/13/2024 7:39 PM EST [facility] Apolipoprotein A1 134 101 - 198 mg/dL 08/13/2024 7:39 PM EST [facility] Reference ID [id number] 08/13/2024 7:39 PM EST [facility] Footnote SEE NOTE 08/13/2024 7:39 PM EST [facility] Comment: The reliability of results is dependent on compliance with the preanalytical and analytical conditions recommended by [employer]. The tests have to be deferred for: [...] The performance characteristics have been determined by [facility]. It has not been cleared or approved by the U.S. Food and Drug Administration. Performance characteristics refer to the analytical performance of the test. [employer], the associated logo, [employer] and all associated [employer] taylor are the registered trademarks of [employer]. All third democrat taylor - (R) and (TM) - are the property of their respective owners. (C) 4069-1457 [employer]. All rights reserved. Test Performed at: [facility] [address] [place], [place] ??[address] ? I Meenakshi ROMEO, PhD, HARRIETT Blood Venous blood specimen / Unknown Venipuncture / Unknown 08/03/2024 8:43 AM EST 08/03/2024 8:43 AM EST us Kishan LFORES LAB BLOOD ORDERABLES Final [place] [place] [address] * (ABNORMAL) CBC auto differential (08/03/2024 8:43 AM EST) WBC 11.1(H) 4.8 - 10.8 K/mcL LAB HEMETOLOGY METHOD 08/03/2024 10:30 AM [facility] RBC 4.50 3.80 - 4.80 M/mcL LAB HEMETOLOGY METHOD 08/03/2024 10:30 AM [facility] Hemoglobin 11.2(L) 11.5 - 16.0 g/dL LAB HEMETOLOGY METHOD 08/03/2024 10:30 AM [facility] Hematocrit 36.5 35.0 - 47.0 % LAB HEMETOLOGY METHOD 08/03/2024 10:30 AM [facility] MCV 81.1 79.0 - 98.0 FL LAB HEMETOLOGY METHOD 08/03/2024 10:30 AM [facility] MCH 24.9(L) 27.0 - 32.0 pcg LAB HEMETOLOGY METHOD 08/03/2024 10:30 AM [facility] MCHC 30.7(L) 32.0 - 37.0 g/dL LAB HEMETOLOGY METHOD 08/03/2024 10:30 AM [facility] RDW 15.7(H) 11.0 - 15.0 % LAB HEMETOLOGY METHOD 08/03/2024 10:30 AM [facility] Platelets 356 130 - 400 K/mcL LAB HEMETOLOGY METHOD 08/03/2024 10:30 AM [facility] MPV 11.3(H) 7.0 - 11.0 FL LAB HEMETOLOGY METHOD 08/03/2024 10:30 AM [facility] NRBC 0.0 <1.0 % LAB HEMETOLOGY METHOD 08/03/2024 10:30 AM [facility] NRBC Absolute 0.00 <0.10 K/mcL LAB HEMETOLOGY METHOD 08/03/2024 10:30 AM [facility] Neutrophils Relative 65.5 % LAB HEMETOLOGY METHOD 08/03/2024 10:30 AM [facility] Lymphocytes Relative 24.4 % LAB HEMETOLOGY METHOD 08/03/2024 10:30 AM [facility] Monocytes Relative 5.9 % LAB HEMETOLOGY METHOD 08/03/2024 10:30 AM [facility] Eosinophils Relative 2.7 % LAB HEMETOLOGY METHOD 08/03/2024 10:30 AM [facility] Basophils Relative 0.7 % LAB HEMETOLOGY METHOD 08/03/2024 10:30 AM [facility] Immature Granulocytes Relative 0.8 % LAB HEMETOLOGY METHOD 08/03/2024 10:30 AM [facility] Neutrophils Absolute 7.29(H) 1.50 - 7.00 K/mcL LAB HEMETOLOGY METHOD 08/03/2024 10:30 AM [facility] Lymphocytes Absolute 2.72 1.00 - 5.00 K/mcL LAB HEMETOLOGY METHOD 08/03/2024 10:30 AM [facility] Monocytes Absolute 0.66 0.20 - 1.00 K/mcL LAB HEMETOLOGY METHOD 08/03/2024 10:30 AM [facility] Eosinophils Absolute 0.30 0.00 - 0.50 K/mcL LAB HEMETOLOGY METHOD 08/03/2024 10:30 AM [facility] Basophils Absolute 0.08 0.00 - 0.20 K/mcL LAB HEMETOLOGY METHOD 08/03/2024 10:30 AM [facility] Immature Granulocytes Absolute 0.09(H) 0.00 - 0.03 K/mcL LAB HEMETOLOGY METHOD 08/03/2024 10:30 AM [facility] Blood Venous blood specimen / Unknown Venipuncture / Unknown 08/03/2024 8:43 AM EST 08/03/2024 8:43 AM EST us Kishan FLORES LAB BLOOD ORDERABLES Final Resu lt [facility] [address] [place] [address], [place] [phone] * (ABNORMAL) Comprehensive metabolic panel (08/03/2024 8:43 AM EST) Sodium 138 133 - 145 mmol/L LAB CHEMISTRY METHOD 08/03/2024 12:13 PM [facility] Potassium 4.4 3.5 - 5.5 mmol/L LAB CHEMISTRY METHOD 08/03/2024 12:13 PM [facility] Chloride 103 96 - 110 mmol/L LAB CHEMISTRY METHOD 08/03/2024 12:13 PM [facility] CO2 29 21 - 32 mmol/L LAB CHEMISTRY METHOD 08/03/2024 12:13 PM [facility] Anion Gap 6 3 - 11 LAB CHEMISTRY METHOD 08/03/2024 12:13 PM [facility] Glucose 190(H) 70 - 100 mg/dL LAB CHEMISTRY METHOD 08/03/2024 12:13 PM [facility] BUN 13 5 - 25 mg/dL LAB CHEMISTRY METHOD 08/03/2024 12:13 PM [facility] Creatinine 0.86 0.50 - 1.10 mg/dL LAB CHEMISTRY METHOD 08/03/2024 12:13 PM EST [facility] eGFR 90 >=60 mL/min/1. 73m2 LAB CHEMISTRY METHOD 08/03/2024 12:13 PM [facility] Comment:Calculation based on the??Chronic Kidney Disease Epidemiology Collaboration (CKD-EPI) equation refit??without adjustment for race. BUN/Creatinine Ratio 15.1 LAB CHEMISTRY METHOD 08/03/2024 12:13 PM [facility] Calcium 9.3 8.5 - 10.5 mg/dL LAB CHEMISTRY METHOD 08/03/2024 12:13 PM [facility] AST (SGOT) 11 10 - 42 unit/L LAB CHEMISTRY METHOD 08/03/2024 12:13 PM [facility] ALT (SGPT) 19 10 - 60 unit/L LAB CHEMISTRY METHOD 08/03/2024 12:13 PM [facility] Alkaline Phosphatase 78 42 - 121 unit/L LAB CHEMISTRY METHOD 08/03/2024 12:13 PM [facility] Total Protein 6.6 6.0 - 8.0 g/dL LAB CHEMISTRY METHOD 08/03/2024 12:13 PM [facility] Albumin 3.3 3.2 - 5.0 g/dL LAB CHEMISTRY METHOD 08/03/2024 12:13 PM [facility] Total Bilirubin 0.2 0.0 - 1.4 mg/dL LAB CHEMISTRY METHOD 08/03/2024 12:13 PM [facility] Blood Venous blood specimen / Unknown Venipuncture / Unknown 08/03/2024 8:43 AM EST 08/03/2024 8:43 AM EST us Kishan FLORES LAB BLOOD ORDERABLES Final Resu lt [facility] [address] [place] [address], [place] [phone] * [place] Abdomen Limited (08/03/2024 8:28 AM [...] Signed Date: 08/03/2024 10:47 ET Workstation ID: [id number] Transcribed By: Self Edit Transcribed Date: 08/03/2024 [...] Signed Date: 08/03/2024 10:47 ET Workstation ID: [id number] Transcribed By: Self Edit Transcribed Date: 08/03/2024 10:46 ET Kishan FLORES IMG US PROCEDURES Final Result * (ABNORMAL) Hemoglobin A1c (04/05/2024) [facility] Hemoglobin A1C 9.0(A) <=6.5 % Blood Venous blood specimen / Unknown Result [facility] Provider LAB BLOOD ORDERABLES Eliza l Result * HIV Screening (12/24/2023) [facility] HIV Screening abstracted Result [facility] Provider HEALTH MAINTENANCE Final Result * Hepatitis C Screening (12/24/2023) [facility] Hepatitis C Screening abstracted Result [facility] Provider HEALTH MAINTENANCE Final Result * Cervical Cancer Screening: HPV (12/19/2023) [facility] Cervical Cancer Screening: HPV abstracted; negative Result [facility] Provider HEALTH MAINTENANCE Final Result * Diabetes Eye Exam (12/08/2023) [facility] Diabetes: Annual Retina Eye Exam abstracted Historical Provider HEALTH MAINTENANCE Final Result * Urine Albumin Creatinine Ratio (08/15/2023) [facility] Urine Albumin Creatinine Ratio abstracted Result [facility] Historical Provider HEALTH MAINTENANCE Final Result from Last 3 Months or Most Recently Relevant to Health Maintenance Insurance [facility] Care Teams Manager Clinical Research Relationship Specialty Start Date End Date Branden Henson MD [address] [place] [address] PCP - General Internal Medicine 06/08/19
--- OUTSIDE RECORDS SUMMARY | 2024-10-07 10:17 | XMS_ITS | Encounter Summary ---
Author Organization [place] [address] Care Team Providers Care Transaction Processor Name Role Phone Branden Henson MD Primary Care Provider [phone] Encounter Details Date Type Department Care Team (Late st Contact Info) Description 05/20/2024 10:32 AM EDT Hospital Encounter TH HISTORIC ENCOUNTERS EASTERN CONVERSION ONLY Charleen Agustin PA [address] [place] [address] Social History Tobacco Use Types Packs/Day Years [...] in this encounter Progress Notes * SANDRA Bukcley 05/20/2024 10:30 AM EDT Images from the original note were not included. Progress Notes by Charleen Agustin PA-C at 05/20/2024 10:30 AM Author: Charleen Agustin PA-C Service: -- Author Type: Physician Oil Spreader Operator Filed: 05/20/2024 11:19 AM Encounter Date: 05/20/2024 Status: Signed Maintenance Specialist: Charleen Agustin PA-C (Physician Oil Spreader Operator) Cosigner: Sumeet Ragland MD at 05/20/2024 1:36PM HPI: 33-year-old Danish-speaking female with past medical history of asthma, [...] as needed. She is being followed by [facility] bariatric team. Because she transitioned from [place] to [facility], plans for surgery got delayed. Bariatric surgery [...] being followed by the bariatric team from [facility]. She will be undergoing bariatric surgery in [...] that about 5 years ago while in [place] she developed heavy menses. [place] and heavy menses got worse. She was seen by an NURSING CARE PARTNER at that time and an IUD was placed. A year later she had complications with IUD so she has not had an IUD since. She is not on any BCP. 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 Ragland. Charleen Agustin PA-C Cc: Branden Henson MD Sign: Charleen Agustin PA-C Hematology/Oncology [facility] [phone] documented in this encounter Plan of Treatment Upcoming Encounters Date Type Department Care Team (Late st Contact Info) Description 11/02/2024 10:00 AM EDT Office Visit Urogynecology [address] [address] Matilde Arnett MD [address] [place] [address] 11/18/2024 8:30 AM EDT Office Visit [facility] Hematology Oncology [address] [place] [address] Charleen Agustin PA [address] [place] [address] documented as of this encounter Procedures Procedure Name Priority Date/Time Associated Diagnosis Comments ..MISCELLANEOUS REFERENCE LAB TEST 05/20/2024 documented in this encounter Results * Miscellaneous reference lab test (05/20/2024) us Provider Onbase MD LAB BLOOD ORDERABLES Final Re sult documented in this encounter Visit Diagnoses Not on filedocumented in this encounter Care Teams Transaction Processor Relationship Specialty Start Date End Date Branden Henson MD [address] [place] [address] PCP - General Internal Medicine 06/08/19 documented as of this encounter
--- OUTSIDE RECORDS SUMMARY | 2024-10-07 10:17 | XMS_ITS | Continuity of Care Document ---
Author Organization [facility] Address [address] [place] [address] Phone Care Team Providers Care Fisher Spear Name Role Phone Macrina Aguillon MD Unavailable [...] Diagnoses Date Provider Office/outpati ent visit,est, mod [facility], [address] [place] [address], [facility], tel:[phone] MOB Medical heavy periods (chief complaint) Chest PainMenses, Irregular Bleeding, Pal Schrader. [address] [place] [address] [id number] [place], [place], [id number], . tel:[phone] [facility], [address] [place] [address], [address], tel:[phone] MOB Medical abnormal pap (chief complaint) CHLAMYDIAL INFECTION NOSAmenorrhea, Missed Menses Draganescu Jazz. Betty Mallory, [id number] [place], [place], [facility], . tel:[phone], [facility], tel:[phone] [facility] Medical PAP test (chief complaint)h eadache (chief complaint) Pap Screen Routine PROFESSIONAL SECURITY OFFICER ExamIntertrigo Viviancu Jazz. [address], [id number] [place], [place], [facility], . tel:[phone] [facility], [address] [place] [address], [facility], tel:[phone] [facility] Medical heavy periods (chief complaint)r .m.c visit (chief complaint) Obesity, MorbidFAM HX-DIABETES MELLITUSMenses, Irregular Bleeding, Jackieanescu Jazz. [address], [id number] [place], [place], [facility], . tel:[phone] Family History Family Member Type Diagnosis Age [...]
--- OUTSIDE RECORDS SUMMARY | 2024-10-07 10:17 | XMS_ITS | Clinical Summary ---
Author Organization [facility] Address [address] [place] [address] Care Team Providers Care Police Matron Name Role Phone Branden Henson MD Primary Care Provider [phone] Allergies No known active allergies Medications Medication [...] age to complete this topic Care Teams Police Matron Relationship Specialty Start Date End Date Branden Henson MD PCP - General Internal Medicine 11/19/22
--- OUTSIDE RECORDS SUMMARY | 2024-10-07 10:17 | XMS_ITS | Encounter Summary ---
Author Organization [place] [address] Care Team Providers Care Apprentice Name Role Phone Branden Henson MD Primary Care Provider [phone] Encounter Details Date Type Department Care Team (Late st Contact Info) Description 05/20/2024 10:30 AM EDT Hospital Encounter TH HISTORIC ENCOUNTERS EASTERN CONVERSION ONLY Charleen Agustin PA [address] [place] [address] Social History Tobacco Use Types Packs/Day Years [...] Description 11/02/2024 10:00 AM EDT Office Visit U[address] [address] Matilde Arnett MD [address] [place] [address] 11/18/2024 8:30 AM EDT Office Visit [facility] Hematology Oncology [address] [place] [address] Charleen Agustin PA [address] [place] [address] documented as of this encounter Visit Diagnoses Not on filedocumented in this encounter Care Teams Apprentice Relationship Specialty Start Date End Date Branden Henson MD [address] [place] [address] PCP - General Internal Medicine 06/08/19 documented as of this encounter
[2024-10-07 18:15] LABS: Hematocrit 36.4 % (37.0-47.0); Hemoglobin 11.4 g/dl (12.0-16.0); Mean Corpuscular HGB Conc 31.3 g/dl (31.0-35.0); Mean Corpuscular Hemoglobin 25.2 pg (27.0-33.0); Mean Corpuscular Volume 80.5 fL (80.0-98.0); Mean Platelet Volume 10.7 fL (9.4-12.3); Platelet Count 372 X10*3/uL (160-400); Red Blood Count 4.52 X10*6/uL (4.20-5.50); Red Cell Distribution Width 16.5 % (11.0-16.0); White Blood Count 13.4 X10*3/uL (4.8-10.8)
[2024-10-07 18:36] LABS: Alanine Aminotransferase 18 U/L (0-31); Albumin Level 3.8 g/dL (3.5-5.0); Alkaline Phosphatase 80 U/L (39-117); Anion Gap 11 (12-20); Aspartate Amino Transferase 19 U/L (5-31); Bilirubin Total 0.4 mg/dL (0.0-1.0); Blood Urea Nitrogen 11 mg/dL (9-16); Calcium 9.1 mg/dL (8.4-10.2); Carbon Dioxide 30 mmol/L (22-29); Chloride 100 mmol/L (96-108); Estimated Glomerular Filt Rate > 60; Glucose Random 295 mg/dL (60-115); Iron 43 mcg/dL (30-160); Percent Iron Saturation 20 % (15-50); Potassium 3.9 mmol/L (3.3-5.1); Sodium 137 mmol/L (135-145); Total Iron Binding Capacity 219 mcg/dL (228-428); Total Protein 7.3 g/dL (6.5-8.0); Unsaturated Iron Binding 176 ug/dL
[2024-10-07 18:57] LABS: Ferritin 46 ng/mL (10-122); TSH reflex Free T4 1.69 uIU/mL (0.32-4.0); Vitamin D 25-OH Total 44.5 ng/mL (>30)
[2024-10-07 18:59] LABS: Folate 12.8 ng/mL (> or = 4.0); Vitamin B12 412 pg/mL (200-900)
[2024-10-10 17:28] LABS: Methylmalonic Acid 92 nmol/L (55-335)
== END 2024-10-07 08:28 | disposition home or self-care (01) ==
LOC: CF 08:27
PROVIDERS: Visit Provider Physician Assistant Medical
DX: R53.83 Other fatigue (principal); G47.9 Sleep disorder, unspecified; G47.33 Obstructive sleep apnea (adult) (pediatric); Z99.89 Dependence on other enabling machines and devices; E66.01 Morbid (severe) obesity due to excess calories; F41.9 Anxiety disorder, unspecified
CPT/HCPCS: 36415; 80053; 82306; 82607; 82728; 82746; 83540; 83921; 84443; 85027; 99212

== ENCOUNTER 2024-10-07 08:27 | Outpatient (AMB) | payer OTHER, SELFPAY ==
[2024-10-07 08:43] VITALS: BP 122/78; PULSE 84; O2SAT 96; BMI 50.5
--- NOTE | 2024-10-07 08:43 | A.OFFVIS_ITS ---
Vital Signs 10/07/24 08:43 Height 5 ft 4 in Weight 294 lb 4 oz BMI 50.5 BP 122/78 Blood Pressure Location Lt brachial Position Sitting Pulse 84 Pulse Source Pulse Oximeter Pulse Oximetry (%) 96 Oxygen Delivery Method Room Air Intake Visit Reasons: 3 mo follow up Intake Note: Patient presents follow up MARIAJOSE. titration in chart. no concerns Fuel Yard Operator Required: Yes Fuel Yard Operator Name: hector Carlson Information Interpreted: non-clinical & clinical Allergies No Known Allergies Allergy (Verified 10/07/24 08:48) HPI Comments Details: 33 y/o female with h/o asthma presents for a f/u of severe sleep apnea. Split Night Study Aug 24 2024 CPAP pressures adjusted to [id number], patient had severe sleep apnea with AHI 26/hr and O2 Aguilar 84% She goes to bed at 10pm and wakes up at 5am, notices the reservoir is empty of water. She feels like she is still choking at night, snoring has decreased significantly. She has asthma takes montelukast and albuterol PRN. She is still going to weight management on Trulicity 0.25 weekly, managed by her president sales and marketing. Daytime fatigue has improved some. Denies headaches and restless legs. She uses the nose pillow mask and likes it. Anxiety is not managed well, she asks for an increase in Sertraline today, is managed by [facility]. She cleans her mask daily, changes filters, uses distilled water. She is going to the gym 3x a week, walks on the treadmill for 30 min. CPAP Compliance Report: 06/2024- 10/07/2024 >4 hours total usage 6hrs and 53 min CPAP set Pressures [id number] Leaks 3.6 L/min AHI 0.2 PFSH Surgical History Hx of eye surgery Hx of section Family History Mother No problems noted. Father Hypertension Diabetes Neuropathy Brother No problems noted. Brother No problems noted. Sister Diabetes Sister No problems noted. Daughter Asthma Epilepsy Social History Alcohol intake: never Patient Tobacco Use Status: Never used Tobacco Review of Systems Const All systems reviewed & are unremarkable except as noted in HPI and below Physical Exam Vital Signs: Last Vital Signs Pulse 84 10/07/24 08:43 BP 122/78 10/07/24 08:43 Pulse Ox 96 10/07/24 08:43 Oxygen Delivery Method Room Air 10/07/24 08:43 BMI result Body Mass Index 50.5 Const General: cooperative, comfortable and no acute distress Orientation/consciousness: patient oriented x3 HEENT Face and sinus: Yes normal facial exam and Yes face symmetric Mouth: tongue normal Eyes Pupils: Equal, round and reactive pupils present, Pupils normal by confrontation and Pupil accommodation reflex normal Resp Effort & Inspection: normal respiratory effort and able to speak in complete sentences Neuro General: patient oriented x3 and moves all extremities Cranial nerves: Yes CN's II-XII intact bilaterally, Yes Facial sensation intact/muscles of mastication intact, Yes Equal, round and reactive pupils present, Yes Normal facial strength present, Yes Midline tongue present, Yes Symmetric palate elevation present, Yes Ability to bilaterally rotate head present and Yes Ability to bilaterally elevate shoulders present Gait exam (Neuro): Normal gait present Motor exam (neuro): 5/5 motor strength present throughout Psych Thought process: Normal thought process present Thought content: Normal thought content present Results Reviewed Results Reviewed: CPAP Compliance Report viewed on phone ortiz: 06/2024- 10/07/2024 >4 hours total usage 6hrs and 53 min CPAP set Pressures [id number] Leaks 3.6 L/min AHI 0.2 Assessment & Plan Assessment & Plan (1) MARIAJOSE (obstructive sleep apnea): Comment: snoring and gasping for air Code(s): G47.33 - Obstructive sleep apnea (adult) (pediatric) Category: Medical (2) Anxiety: Code(s): F41.9 - Anxiety disorder, unspecified Category: Medical (3) Fatigue due to sleep pattern disturbance: Code(s): R53.83 - Other fatigue; G47.9 - Sleep disorder, unspecified Category: Medical (4) Morbid obesity: Code(s): E66.01 - Morbid (severe) obesity due to excess calories Category: Medical Plan Severe Apnea compliance is emphasized Labs to r/o deficiencies Distilled water for [place] Obesity BMI is elevated continue on Trulicity weekly and walking daily Anxiety f/u with [facility] Sertraline is increased to 150mg PO daily today per your request. F/U in 6 months Orders: Orders Complete Blood Count no Diff Today G47.9 - Sleep disorder, unspecified, R53.83 - Other fatigue Comprehensive Met. Panel Today G47.9 - Sleep disorder, unspecified, R53.83 - Other fatigue Ferritin Today G47.9 - Sleep disorder, unspecified, R53.83 - Other fatigue Methylmalonic Acid Today G47.9 - Sleep disorder, unspecified, R53.83 - Other fatigue Vitamin D 25-OH Total Today G47.9 - Sleep disorder, unspecified, R53.83 - Other fatigue Vitamin B12 and Folate Today G47.9 - Sleep disorder, unspecified, R53.83 - Other fatigue TSH reflex Free T4 Today G47.9 - Sleep disorder, unspecified, R53.83 - Other fatigue Homocysteine Today G47.9 - Sleep disorder, unspecified, R53.83 - Other fatigue IRON PROFILE Today G47.9 - Sleep disorder, unspecified, R53.83 - Other fatigue Medications: New [distilled water] Use one bottle of distilled water in CPAP machine as needed. 1 ea 6RF cpap supplies G47.33 - Obstructive sleep apnea (adult) (pediatric) Patient Instructions: Sleep Hygiene Sleep in a dark and cool environment, with temps below 68 degrees F. No devices in bed. May read a book. Limit fluids two hours prior to bed. May play music and or diffuse essential oils to help with relaxation at night. Anxiety, continue seeing the therapist as needed. Apps such as calm or positive self talk media can be empowering. BMI is elevated to 50.5 Weight management continue walking and taking Trulicity weekly. Coding Level of Care Code Est Pt Level 4 (43559) Diagnoses MARIAJOSE (obstructive sleep apnea) G47.33 Anxiety F41.9 Fatigue due to sleep pattern disturbance R53.83; G47.9 Morbid obesity E66.01
--- OUTSIDE RECORDS SUMMARY | 2024-10-07 08:52 | XMS_ITS | Clinical Summary ---
Author Organization [facility] [address] [place] [address] Address [address] [place] [address] Phone Care Team Providers Care Brain Picker Name Role Phone Branden Henson MD Primary Care Provider [phone] Allergies No known active allergies Medications insulin lispro 100 unit/mL injection Inject 150 Units as directed daily. Use daily with insulin pump. Max daily dose 150 units. 03/09/20 24 Active diclofenac (VOLTAREN) 1 % topical gel Apply 2 g topically 2 times daily as needed (pain 02/03/20 24 Active alcohol swabs (Easy Touch Alcohol Prep Pads) pads, medicated Apply 1 each topically 4 (four) times a day. 02/03/20 24 Active montelukast (SINGULAIR) 10 mg tablet Take 1 tablet (10 mg total) by mouth at bedtime. 08/22/19 24 Active blood-glucose transmitter (DEXCOM G6 TRANSMITTER MISC) 1 Device by Does not apply route See Admin Instructions. Change transmitter every 3 months. 02/18/20 24 Active insulin pump cart,automated, BT (OMNIPOD 5 G6 PODS, GEN 5, SUBQ) 15 Devices by Does not apply route every 48 hours 02/18/20 24 Active blood sugar diagnostic (FreeStyle Lite Strips) test strip Use to test blood sugar 4 times daily 02/03/20 24 Active FREESTYLE LANCETS MIS Use to test blood sugar 4 times daily 02/03/20 24 Active baclofen (LIORESAL) 10 mg tablet TAKE 1 TABLET BY MOUTH THREE TIMES A DAY NEEDED FOR MUSCLE SPASM MAY CAUSE SEDATION 01/20/20 24 Active senna (SENOKOT) 8.6 mg tablet Take 2 tablets (17.2 mg total) by mouth at bedtime as needed for constipation. 01/20/20 24 Active cyanocobalamin (VITAMIN B-12) 500 mcg tablet Take 1 tablet (500 mcg total) by mouth 1 (one) time each day. 01/20/20 24 Active fluticasone furoate (Arnuity Ellipta) 100 mcg/actuation blister with device inhaler Inhale 1 puff by mouth 1 (one) time each day. 01/09/20 24 Active ammonium lactate (LAC-HYDRIN) 12 % lotion Apply to soles of feet daily. At night wear socks to bed 01/06/20 24 Active ciclopirox (PENLAC) 8 % solution Apply daily to nails clean medication residue off of nail plate every 3 days with rubbing alcohol 01/06/20 24 Active sertraline (ZOLOFT) 100 mg tablet Take 1 tablet (100 mg total) by mouth 1 (one) time each day. 10/23/19 24 Active diclofenac (VOLTAREN) 50 mg EC tablet Take 1 tablet (50 mg total) by mouth 2 (two) times a day. 09/30/19 24 Active insulin glargine (Lantus Solostar U-100 Insulin) 100 unit/mL (3 mL) injection pen Inject 15 Units into the skin daily. Increase by 5 units every week if BS above 130. Max dose 80 units 11/26/19 24 Active gabapentin (NEURONTIN) 600 mg tablet Take 1 tablet (600 mg total) by mouth 3 (three) times a day. 08/22/19 24 Active blood-glucose meter mis Use to test blood sugar four times daily 08/22/19 23 Active clotrimazole-be tamethasone (LOTRISONE) 1-0.05 % cream Apply to area sparingly twice a day for up to two weeks 08/22/19 23 Active insulin syringes, disposable, 1 mL syringe Four times daily 08/22/19 23 Active ipratropium-alb uteroL (DUONEB) 0.5-2.5 mg/3 mL nebulizer solution Inhale 3 mL by mouth every 4 (four) hours if needed for shortness of breath or wheezing. 08/22/19 23 Active albuterol HFA (ProAir HFA) 90 mcg/actuation inhaler Inhale 2 Puffs into the lungs 4 times daily as needed for Cough, Wheezing or Shortness of Breath. *put on hold- pt needs to pick new pharmacy* - Inhalation 08/22/19 23 Active pen needle, diabetic 32 gauge x 1/6 needle Use 4 times daily with insulin 05/02/20 22 Active blood-glucose meter,continuou s (Dexcom G6 Store Management Trainee) misc 1 Device by Not Applicable route 1 (one) time each day. 03/05/20 22 Active fluticasone propionate (FLONASE) 50 mcg/actuation nasal spray Administer 2 sprays into each nostril 1 (one) time each day if needed. 09/20/19 21 Active clonazePAM (KlonoPIN) 0.5 mg tablet Take 1 tablet (0.5 mg total) by mouth at bedtime as needed. Max Daily Amount: 0.5 mg Active cholecalciferol (VITAMIN D-3) 1,250 mcg (50,000 unit) capsule Take 1 capsule (50,000 Units total) by mouth 1 (one) time per week. Active semaglutide (Ozempic) 1 mg/dose (4 mg/3 mL) injection pen Inject 1 mg under the skin every 7 (seven) days. 3 mL 5 07/07/20 24 Active cetirizine (ZyrTEC) 10 mg tablet TAKE 1 TABLET BY MOUTH DAILY 30 tablet 1 07/27/20 24 Active pantoprazole (PROTONIX) 40 mg EC tablet TAKE 1 TABLET BY MOUTH DAILY BEFORE BREAKFAST 90 tablet 1 09/14/19 25 Active pantoprazole (PROTONIX) 40 mg EC tablet Take 1 tablet (40 mg total) by mouth 1 (one) time each day before breakfast. 90 each 08/19/19 25 025 Discontinued Active Problems Problem Noted Date Diagnosed Date Class 3 severe obesity with body mass index (BMI) of 50.0 to 59.9 in adult 05/20/2024 MARIAJOSE (obstructive sleep apnea) 03/26/2023 Iron deficiency anemia 12/20/2022 Diabetes mellitus type 2, wi th complication, on skilled nursing insulin pump 09/20/2022 Left carpal tunnel syndrome 12/18/2021 Right carpal tunnel syndrome 12/18/2021 Fatty liver 09/12/2021 Overview (05/20/2024): Seen on CT of lumbar spine 09-11-21 Lichen simplex chronicus 01/28/2021 Overview (05/20/2024): Last Assessment & Plan: Discussed clinical finding of lichen simplext chronicus. Rx for Lidex given today. Patient instructed on location and duration of use. She may follow-up with me in 4 weeks or with her OB provider when she gets established at [facility]. Fibromyalgia 06/20/2020 Overview (05/20/2024): She is made aware that her previous treatments including duloxetine, gabapentin, baclofen, and naproxen do cross the placenta. She will hold off on the gabapentin, baclofen, and naproxen, we did review the risk versus benefits of continuing duloxetine during as treatment of both anxiety and depression as well as her fibromyalgia pains will be important during her . With shared decision making she would prefer to continue with the duloxetine for now. See consult on Roland Mendez PA-C 01/17/2021 4:52 PM for more details Allergic dermatitis 07/23/2019 Overview (05/20/2024): Last Assessment & Plan: Reviewed findings which are either related to yeast or medicaments she has tried thus far. Requires treatment with topical steroid and stop all products on vulva. She was counseled to soak, but does not have a tub. Bacterial vaginosis 07/23/2019 Overview (05/20/2024): Last Assessment & Plan: Concurrent with yeast. Treated with oral Flagyl. DM (diabetes mellitus), type 2 with complication s 07/23/2019 Overview (05/20/2024): Uncontrolled Last Assessment & Plan: As noted, patient counseled unlikely to have improvement without improved control of blood sugars. She will continue to work on this with PCP. Vaginal discharge 07/23/2019 Yeast vaginitis 07/23/2019 Overview (05/20/2024): Last Assessment & Plan: Diflucan PO q3d x2 prescribed today. Discussed importance of glucose control for prevention of yeast infections. Patient to return if symptoms continue or worsen despite treatment. Diabetic peripheral neuropathy 07/28/2018 DM (diabetes mellitus), type 2 with peripheral vascular complications 07/28/2018 Morbid obesity 05/21/2018 Uncomplicated asthma 11/05/2017 DM (diabetes mellitus), type 2 with neurological complications 09/30/2017 DM (diabetes mellitus), type 2 with renal compli cations 09/30/2017 Hyperlipidemia 09/30/2017 Hypertension 09/30/2017 Microalbuminuria 09/30/2017 Vitamin D deficiency 09/30/2017 Overview (05/20/2024): 04/14/17 - Vitamin D 50,000 units weekly until recheck is normal. Encounters Date Type Department Care Team Description 08/05/2024 Telephone Adult Medicine - [address] [phone] VargasKatie , [place], [place] 08/03/2024 8:09 AM EST - 08/03/2024 11:59 PM [facility] Hospital Encounter Radiology Department - [address] [phone] Fatty liver Discharge Disposition: Home or Self Care from Last 3 Months Immunizations Name Administration Dates Next Due Influenza Quadravalent, MDCK , 0.5ml, preservative free (Flucelvax) 6mo and older 05/04/2020 Influenza trivalent, with pr eservative (Fluzone; Afluria) 6mo and older 05/16/2022,05/15/2021,04/20/2019 Influenza, Unspecified 07/02/2021 RUBY/Robert SARS-CoV-2 COVID -19, vector-nr, rS-Ad26, preservative free 11/27/2020 Pneumococcal polysaccharide 23 valent (Pneumovax 23) 2yo and older 04/10/2017 SARS-COV-2 (COVID-19) Vaccine, Unspecified 07/20,05/24/2022 Tdap Tetanus diptheria acell ular pertussis (Boostrix; Adacel) 7yo and older 04/10/2017 Surgical History Surgery Date Site/Laterality Comments SECTION PROCEDURE: SECTION;COMMENT:2012 SECTION 11/22/2012 PROCEDURE: HISTORICAL DELIVERY EYE SURGERY Left PROCEDURE: HISTORICAL EYE SURGERY; COMMENT: strabismus Medical History Medical History Date Comments Diabetes mellitus ([facility]) DX:D iabetes mellitus (HCC) Asthma DX:Asthma Hypertension DX:Hypertension Morbid obesity with BMI of 5 0.0-59.9, adult ([facility]) DX:Morbid obesity with BMI o f 50.0-59.9, adult ([facility]) Fibromyalgia DX:Fibromyalgia Hyperlipidemia DX:Hyperlipidemi a Hepatic steatosis DX:Hepatic kathryn atosis DM (diabetes mellitus), type 2 with renal complications ([facility]) 09/30/2017 DX:DM (diabetes mellitus ), type 2 with renal complications ([facility]) H/O diabetic foot ulcer 09/30/2017 DX:H/O d iabetic foot ulcer Hyperlipidemia 09/30/2017 DX:Hyperlipidemi a Hypertension 09/30/2017 DX:Hypertension Microalbuminuria 09/30/2017 DX:Microalbumin uria Morbid obesity with BMI of 5 0.0-59.9, adult ([facility]) 09/30/2017 DX:Morbid obesity with BMI o f 50.0-59.9, adult ([facility]) Vitamin D deficiency 09/30/2017 DX:Vitamin D deficiency; COMMENT: 04/14/17 - Vitamin D 50,000 units weekly until recheck is normal. Uncomplicated asthma 11/05/2017 DX:Uncompli cated asthma Homeless 06/26/2018 DX:Homeless Diabetic peripheral neuropat hy ([facility]) 07/28/2018 DX:Diabetic peripheral neuro shaq (HCC) DM (diabetes mellitus), type 2 with neurological complications ([facility]) 09/30/2017 DX:DM (diabetes m ellitus), type 2 with neurological complications (HCC) DM (diabetes mellitus), type 2 with peripheral vascular complications ([facility]) 07/28/2018 DX:DM (diabetes mellitus), t ype 2 with peripheral vascular complications (HCC) Morbid obesity ([facility]) 05/21/2018 DX:Morb id obesity (HCC) Anemia DX:Anemia GERD (gastroesophageal reflux disease) DX:GERD (gastroesophageal reflux disease) Heavy menses DX:Heavy menses Iron deficiency anemia DX:Iron d eficiency anemia Anemia DX:Anemia Fatty liver DX:Fatty liver Family History Medical History Relation Name Comments Diabetes Father Hypertension Diabetes Maternal Grandfather Diabetes Maternal Grandmother Ovarian cancer Maternal Grandmother Diabetes Mother Uterine Cancer, Hypertension Breast cancer Other maternal aunt Diabetes Paternal Grandfather Diabetes Paternal Grandmother Colon cancer Neg Hx Pancreatic cancer Neg Hx Prostate cancer Neg Hx Relation Name Status Comments Father Alive Maternal Grandfather Maternal Grandmother Alive Mother Alive Other maternal aunt Alive Paternal Grandfather Paternal Grandmother Social History Tobacco Use Types Packs/Day Years Used Date Smoking Tobacco: Never Cigarettes Qu it: 08/18/2012 Smokeless Tobacco: Never Alcohol Use Standard Drinks/Week Comments Yes 0 (1 standard drink = 0.6 oz pur e alcohol) Comments Unknown Sex and Gender Information Value Date Recorded Sex Assigned at Female 06/29/2024 1:07 PM EST Legal Sex Female 5:04 AM EST Gender Identity Female 06/29/2024 1:07 PM EST Sexual Orientation Choose not to disclose 2023 1:07 PM EST Obstetrics History Last Filed Vital Signs Vital Sign Reading Time Taken Comments Blood Pressure 104/60 05/27/2024 8:17 AM EDT Pulse 82 05/27/2024 8:17 AM EDT Temperature - - Respiratory Rate - - Oxygen Saturation 95% 08/22/2023 8:2 5 AM EST at rest, room air Inhaled Oxygen Concentration - - Weight 134 kg (295 lb 6.4 oz) 05/27/2024 8:17 AM EDT Height 162.6 cm (5' 4 ) 05/27/2024 8:17 AM EDT Body Mass Index 50.71 05/27/2024 8:17 AM EDT Plan of Treatment Upcoming Encounters Date Type Department Care Team (Late st Contact Info) Description 11/02/2024 10:00 AM EDT Office Visit Urogynecology - [address] [phone] Matilde Arnett MD [address] [place] [address] [address] [place] [address] 11/18/2024 8:30 AM EDT Office Visit [facility] Hematology Oncology [address] [place] [address] Charleen Agustin PA [address] [place] [address] Health Maintenance Due Date Last Done Comments Diabetes: Annual Foot Exam 1998 Hepatitis A Vaccines (1 of 2 - Risk 2-dose series) 12/12/2007 Hepatitis B Vaccines (1 of 3 - 19+ 3-dose series) 12/12/2007 Pneumococcal Vaccine: Pediatrics (0 to 5 Years) and At-Risk Patients (6 to 64 Years) (2 of 2 - PCV) 04/10/2018 04/10/2017 Depression Screening 07/25/2022 Social Influencers of Health Screening 07/25/2022 COVID-19 Vaccine ( season) 2024 07/20/2022, 05/24/2022, 11/03/2021, Additional history exists Influenza Vaccine (#1) 2024 , 07/02/2021, 05/15/2021, Additional history exists Diabetes: Annual Urine Albumin-Creatinine Ratio (uACR) 08/15/2024 08/15/2023 Diabetes: Blood Sugar Control Test (HGBA1C) 10/06/2024 04/05/2024, 04/05/2024, 12/24/2023 Diabetes: Annual Retina Eye Exam 12/07/2024 12/08/2023 Diabetes: Annual GFR (Glomerular Filtration Rate) 08/03/2025 08/03/2024, 04/05/2024, 04/05/2024 Hypertension/CHF/CAD Annual BMP Blood Test 08/03/2025 08/03/2024, 04/05/2024, 04/05/2024 Cervical Cancer Screening: HPV 12/18/2028 12/19/2023 Cholesterol Screening (Lipid Panel) 08/03/2029 08/03/2024, 04/05/2024, 04/05/2024 DTaP,Tdap,and Td Vaccines (3 - Td or Tdap) 01/31/2030 02/01/2020, 04/10/2017 HIV Screening Completed 12/24/2023, 12/24/2023 Hepatitis C Screening Completed 12/24/2023 HIB Vaccines Aged Out No longer eligi ble based on patient's age to complete this topic HPV Vaccines Aged Out No longer eligi ble based on patient's age to complete this topic IPV Vaccines Aged Out No longer eligi ble based on patient's age to complete this topic MMR Vaccines Aged Out No longer eligi ble based on patient's age to complete this topic Meningococcal ACWY Vaccine Aged Out N o longer eligible based on patient's age to complete this topic Meningococcal B Vacine Aged Out No lo nger eligible based on patient's age to complete this topic RSV Immunization Patients Under 20 months Aged Out No longer eligible based on patient's age to complete this topic Varicella Vaccines Aged Out No longer eligible based on patient's age to complete this topic Procedures Procedure Name Priority Date/Time Associated Diagnosis Comments CBC WITH AUTO DIFFERENTIAL Routine 08/03/2024 8:43 AM EST Fatty liver COMPREHENSIVE METABOLIC PANEL Routine 08/03/2024 8:43 AM EST Fatty liver LIPID PANEL WITH REFLEX TO DIRECT LDL Routine 08/03/2024 8:43 AM EST Fatty liver CBC AND DIFFERENTIAL Routine 08/03/2024 8:43 AM EST Fatty liver LIVER FIBROSIS, FIBROTEST-ACTITEST PANEL Routine 08/03/2024 8:43 AM EST Fatty liver US ABDOMEN LIMITED Routine 08/03/2024 8: 28 AM EST Fatty liver HEMOGLOBIN A1C Routine 04/05/2024 HEPATITIS C SCREENING Routine 12/24/2023 HIV SCREENING Routine 12/24/2023 HPV Routine 12/19/2023 DIABETES EYE EXAM Routine 12/08/2023 URINE ALBUMIN CREATININE RATIO Routine 08/15/2023 from Last 3 Months or Most Recently Relevant to Health Maintenance Results * (ABNORMAL) Lipid panel with reflex to direct LDL (08/03/2024 8:43 AM EST) Cholesterol 177 0 - 200 mg/dL LAB CHEMISTRY METHOD 08/03/2024 12:[address] [facility] Triglycerides 159(H) 0 - 150 mg/dL LAB CHEMISTRY METHOD 08/03/2024 12:[address] [facility] HDL 41 >=40 mg/dL LAB CHEMISTRY METHOD 08/03/2024 12:[address] [facility] LDL Calculated 104(H) 0 - 100 mg/dL LAB CHEMISTRY METHOD 08/03/2024 12:[address] [facility] VLDL Cholesterol J Carlos 31.8 mg/dL LAB CHEMISTRY METHOD 08/03/2024 12:[address] [facility] Non HDL Chol. (LDL+VLDL) 136 <145 mg/dL LAB CHEMISTRY METHOD 08/03/2024 12:[address] [facility] Chol/HDL Ratio 4.3 0.0 - 4.4 LAB CHEMISTRY METHOD 08/03/2024 12:[address] [facility] Blood Venous blood specimen / Unknown Venipuncture / Unknown 08/03/2024 8:43 AM EST 08/03/2024 8:43 AM EST us Kishan FLORES LAB BLOOD ORDERABLES Final Resu lt [facility] [address] [place] [address], [place] [phone] * Liver fibrosis, fibrotest-actitest panel (08/03/2024 8:43 AM EST) Fibrosis Score 0.06 08/13/2024 7:39 PM EST [facility] Fibrosis Stage F0 08/13/2024 7:39 PM EST [facility] Fibrosis Interpretation SEE NOTE 08/13/2024 7:39 PM EST [facility] Comment: no fibrosis Fibro Test Score (f) ??Metavir Score ??f>=0 and f<=0.21 : F0 (no fibrosis) f>0.21 and f<=0.27 : F0-F1 (no fibrosis) f>0.27 and f<=0.31 : F1 (minimal fibrosis) f>0.31 and f<=0.48 : F1-F2 (minimal fibrosis) f>0.48 and f<=0.58 : F2 (moderate fibrosis) f>0.58 and f<=0.72 : F3 (advanced fibrosis) f>0.72 and f<=0.74 : F3-F4 (advanced fibrosis) f>0.74 and f<=1.00 : F4 (severe fibrosis) Necroinflammat Activity Score 0.05 08/13/2024 7:39 PM EST [facility] Necroinflammat Activity Grade A0 08/13/2024 7:39 PM EST [facility] Necroinflammat Interpretation SEE NOTE 08/13/2024 7:39 PM EST [facility] Comment: no activity ActiTest Score (a) ?Metavir Score ??a>=0 and a<=0.17 : A0 (no activity) a>0.17 and a<=0.29 : A0-A1 (no activity) a>0.29 and a<=0.36 : A1 (minimal activity) a>0.36 and a<=0.52 : A1-A2 (minimal activity) a>0.52 and a<=0.60 : A2 (significant activity) a>0.60 and a<=0.62 : A2-A3 (significant activity) a>0.62 and a<=1.00 : A3 (severe activity) Bilirubin Total 0.3 0.2 - 1.2 mg/dL 08/13/2024 7:39 PM EST [facility] Gamma Glutamyl Transferase (GGT) 30 3 - 50 U/L 08/13/2024 7:39 PM EST [facility] Alanine Aminotransferase (ALT) 18 6 - 29 U/L 08/13/2024 7:39 PM EST [facility] Gsczi-3-Rwprifgmfstl n 169 106 - 279 mg/dL 08/13/2024 7:39 PM EST [facility] Haptoglobin 189 43 - 212 mg/dL 08/13/2024 7:39 PM EST [facility] Apolipoprotein A1 134 101 - 198 mg/dL 08/13/2024 7:39 PM EST [facility] Reference ID [id number] 08/13/2024 7:39 PM EST [facility] Footnote SEE NOTE 08/13/2024 7:39 PM EST [facility] Comment: The reliability of results is dependent on compliance with the preanalytical and analytical conditions recommended by Rebit. The tests have to be deferred for: acute hemolysis, acute hepatitis, acute inflammation, extra hepatic cholestasis. The advice of a specialist should be sought for interpretation in chronic hemolysis and Gilbert's syndrome. The test interpretation is not validated in liver transplant patients. Isolated extreme values of one of the components should lead to caution in interpreting the results. In case of discordance between a biopsy result and a test, it is recommended to seek the advice of a specialist. The causes of these discordances could be due to a flaw of the test or to a flaw in the biopsy: i.e. a liver biopsy has a 33% variability rate for one fibrosis stage. FibroTest is interpretable for chronic hepatitis B and C, alcoholic and non alcoholic steatosis. ActiTest is interpretable for chronic hepatitis B and C. The performance characteristics have been determined by [facility]. It has not been cleared or approved by the U.S. Food and Drug Administration. Performance characteristics refer to the analytical performance of the test. [employer], the associated logo, [employer] and all associated [employer] taylor are the registered trademarks of [employer]. All third alliance party taylor - (R) and (TM) - are the property of their respective owners. (C) [phone] [employer]. All rights reserved. Test Performed at: [facility] [address] [place], [place] ??[address] ? I Meenakshi ROMEO, PhD, HARRIETT Blood Venous blood specimen / Unknown Venipuncture / Unknown 08/03/2024 8:43 AM EST 08/03/2024 8:43 AM EST us Kishan FLORES LAB BLOOD ORDERABLES Final Resu lt [address] [address] * (ABNORMAL) CBC auto differential (08/03/2024 8:43 AM EST) WBC 11.1(H) 4.8 - 10.8 K/mcL LAB HEMETOLOGY METHOD 08/03/2024 10:30 AM [facility] RBC 4.50 3.80 - 4.80 M/mcL LAB HEMETOLOGY METHOD 08/03/2024 10:30 AM [facility] Hemoglobin 11.2(L) 11.5 - 16.0 g/dL LAB HEMETOLOGY METHOD 08/03/2024 10:30 AM [facility] Hematocrit 36.5 35.0 - 47.0 % LAB HEMETOLOGY METHOD 08/03/2024 10:30 AM [facility] MCV 81.1 79.0 - 98.0 FL LAB HEMETOLOGY METHOD 08/03/2024 10:30 AM [facility] MCH 24.9(L) 27.0 - 32.0 pcg LAB HEMETOLOGY METHOD 08/03/2024 10:30 AM [facility] MCHC 30.7(L) 32.0 - 37.0 g/dL LAB HEMETOLOGY METHOD 08/03/2024 10:30 AM [facility] RDW 15.7(H) 11.0 - 15.0 % LAB HEMETOLOGY METHOD 08/03/2024 10:30 AM [facility] Platelets 356 130 - 400 K/mcL LAB HEMETOLOGY METHOD 08/03/2024 10:30 AM [facility] MPV 11.3(H) 7.0 - 11.0 FL LAB HEMETOLOGY METHOD 08/03/2024 10:30 AM [facility] NRBC 0.0 <1.0 % LAB HEMETOLOGY METHOD 08/03/2024 10:30 AM [facility] NRBC Absolute 0.00 <0.10 K/mcL LAB HEMETOLOGY METHOD 08/03/2024 10:30 AM [facility] Neutrophils Relative 65.5 % LAB HEMETOLOGY METHOD 08/03/2024 10:30 AM [facility] Lymphocytes Relative 24.4 % LAB HEMETOLOGY METHOD 08/03/2024 10:30 AM [facility] Monocytes Relative 5.9 % LAB HEMETOLOGY METHOD 08/03/2024 10:30 AM [facility] Eosinophils Relative 2.7 % LAB HEMETOLOGY METHOD 08/03/2024 10:30 AM [facility] Basophils Relative 0.7 % LAB HEMETOLOGY METHOD 08/03/2024 10:30 AM [facility] Immature Granulocytes Relative 0.8 % LAB HEMETOLOGY METHOD 08/03/2024 10:30 AM [facility] Neutrophils Absolute 7.29(H) 1.50 - 7.00 K/mcL LAB HEMETOLOGY METHOD 08/03/2024 10:30 AM [facility] Lymphocytes Absolute 2.72 1.00 - 5.00 K/mcL LAB HEMETOLOGY METHOD 08/03/2024 10:30 AM [facility] Monocytes Absolute 0.66 0.20 - 1.00 K/mcL LAB HEMETOLOGY METHOD 08/03/2024 10:30 AM [facility] Eosinophils Absolute 0.30 0.00 - 0.50 K/mcL LAB HEMETOLOGY METHOD 08/03/2024 10:30 AM [facility] Basophils Absolute 0.08 0.00 - 0.20 K/mcL LAB HEMETOLOGY METHOD 08/03/2024 10:30 AM [facility] Immature Granulocytes Absolute 0.09(H) 0.00 - 0.03 K/mcL LAB HEMETOLOGY METHOD 08/03/2024 10:30 AM [facility] Blood Venous blood specimen / Unknown Venipuncture / Unknown 08/03/2024 8:43 AM EST 08/03/2024 8:43 AM EST us Kishan FLORES LAB BLOOD ORDERABLES Final Resu lt [facility] [address] [place] [address], [place] [phone] * (ABNORMAL) Comprehensive metabolic panel (08/03/2024 8:43 AM EST) Sodium 138 133 - 145 mmol/L LAB CHEMISTRY METHOD 08/03/2024 12:13 PM [facility] Potassium 4.4 3.5 - 5.5 mmol/L LAB CHEMISTRY METHOD 08/03/2024 12:13 PM [facility] Chloride 103 96 - 110 mmol/L LAB CHEMISTRY METHOD 08/03/2024 12:13 PM [facility] CO2 29 21 - 32 mmol/L LAB CHEMISTRY METHOD 08/03/2024 12:13 PM [facility] Anion Gap 6 3 - 11 LAB CHEMISTRY METHOD 08/03/2024 12:13 PM [facility] Glucose 190(H) 70 - 100 mg/dL LAB CHEMISTRY METHOD 08/03/2024 12:13 PM [facility] BUN 13 5 - 25 mg/dL LAB CHEMISTRY METHOD 08/03/2024 12:13 PM [facility] Creatinine 0.86 0.50 - 1.10 mg/dL LAB CHEMISTRY METHOD 08/03/2024 12:13 PM EST [facility] [facility] eGFR 90 >=60 mL/min/1. 73m2 LAB CHEMISTRY METHOD 08/03/2024 12:13 PM [facility] Comment:Calculation based on the??Chronic Kidney Disease Epidemiology Collaboration (CKD-EPI) equation refit??without adjustment for race. BUN/Creatinine Ratio 15.1 LAB CHEMISTRY METHOD 08/03/2024 12:13 PM [facility] Calcium 9.3 8.5 - 10.5 mg/dL LAB CHEMISTRY METHOD 08/03/2024 12:13 PM [facility] AST (SGOT) 11 10 - 42 unit/L LAB CHEMISTRY METHOD 08/03/2024 12:13 PM [facility] ALT (SGPT) 19 10 - 60 unit/L LAB CHEMISTRY METHOD 08/03/2024 12:13 PM [facility] Alkaline Phosphatase 78 42 - 121 unit/L LAB CHEMISTRY METHOD 08/03/2024 12:13 PM [facility] Total Protein 6.6 6.0 - 8.0 g/dL LAB CHEMISTRY METHOD 08/03/2024 12:13 PM [facility] Albumin 3.3 3.2 - 5.0 g/dL LAB CHEMISTRY METHOD 08/03/2024 12:13 PM [facility] Total Bilirubin 0.2 0.0 - 1.4 mg/dL LAB CHEMISTRY METHOD 08/03/2024 12:13 PM [facility] Blood Venous blood specimen / Unknown Venipuncture / Unknown 08/03/2024 8:43 AM EST 08/03/2024 8:43 AM EST us Kishan FLORES LAB BLOOD ORDERABLES Final Resu lt [facility] [address] [place] [address], [place] [phone] * US Abdomen Limited (08/03/2024 8:28 AM EST) Anatomical Region Laterality Modality Body Ultrasound 08/03/2024 10:4 6 AM EST Narrative 08/03/2024 10:47 AM EST Limited abdominal ultrasound. History fatty liver. Comparison with previous examination from 12/16/2023. Study is limited due to patient's body habitus. Bladder is unremarkable. There is no biliary ducts dilatation. Common bile duct measures 5 mm. Liver is enlarged measuring 21 cm in long axis. It revealed coarse increased echogenicity suggestive of steatosis or chronic hepatocellular disease. No visible focal abnormalities are identified. Pancreas is poorly visualized due to body habitus and bowel gas artifact. Right kidney appears to be unremarkable. CONCLUSIONS: Limited by body habitus examination. Hepatomegaly with abnormal echogenicity suggestive of steatosis or chronic hepatocellular disease. -------- FINAL REPORT -------- Dictated By: Charleen Curtis Dictated Date: 08/03/2024 10:46 ET Assigned Physician: Charleen Curtis Reviewed and Electronically Signed By: Charleen Curtis Signed Date: 08/03/2024 10:47 ET Workstation ID: [id number] Transcribed By: Self Edit Transcribed Date: 08/03/2024 10:46 ET Procedure Note Charleen Curtis MD - 08/03/2024 Limited abdominal ultrasound. History fatty liver. Comparison with previous examination from 12/16/2023. Study is limited due to patient's body habitus. Bladder is unremarkable.There is no biliary ducts dilatation. Common bile duct measures 5 mm.Liver is enlarged measuring 21 cm in long axis. It revealed coarseincreased echogenicity suggestive of steatosis or chronic hepatocellulardisease. No visible focal abnormalities are identified. Pancreas is poorlyvisualized due to body habitus and bowel gas artifact. Right kidneyappears to be unremarkable. CONCLUSIONS: Limited by body habitus examination. Hepatomegaly withabnormal echogenicity suggestive of steatosis or chronic hepatocellulardisease. -------- FINAL REPORT -------- Dictated By: Charleen Curtis Dictated Date: 08/03/2024 10:46 ET Assigned Physician: Rokhlenko, Charleen Reviewed and Electronically Signed By: Charleen Curtis Signed Date: 08/03/2024 10:47 ET Workstation ID: [id number] Transcribed By: Self Edit Transcribed Date: 08/03/2024 10:46 ET Kishan FLORES IMG US PROCEDURES Final Result * (ABNORMAL) Hemoglobin A1c (04/05/2024) [facility] Hemoglobin A1C 9.0(A) <=6.5 % Blood Venous blood specimen / Unknown Result [facility] Provider LAB BLOOD ORDERABLES Eliza l Result * HIV Screening (12/24/2023) [facility] HIV Screening abstracted Result [facility] Provider HEALTH MAINTENANCE Final Result * Hepatitis C Screening (12/24/2023) [facility] Hepatitis C Screening abstracted Result [facility] Provider HEALTH MAINTENANCE Final Result * Cervical Cancer Screening: HPV (12/19/2023) [facility] Cervical Cancer Screening: HPV abstracted; negative Result [facility] Provider HEALTH MAINTENANCE Final Result * Diabetes Eye Exam (12/08/2023) [facility] Diabetes: Annual Retina Eye Exam abstracted Historical Provider HEALTH MAINTENANCE Final Result * Urine Albumin Creatinine Ratio (08/15/2023) [facility] Urine Albumin Creatinine Ratio abstracted Result [facility] Historical Provider HEALTH MAINTENANCE Final Result from Last 3 Months or Most Recently Relevant to Health Maintenance Insurance [facility] Care Teams Brain Picker Relationship Specialty Start Date End Date Branden Henson MD [address] [place] [phone] PCP - General Internal Medicine 06/08/19
--- OUTSIDE RECORDS SUMMARY | 2024-10-07 08:52 | XMS_ITS | Clinical Summary ---
Author Organization [facility] Address [address] [place] [address] Care Team Providers Care Insurance Defense Paralegal Name Role Phone Branden Henson MD Primary Care Provider [phone] Allergies No known active allergies Medications Medication Sig Dispensed Refills Start Date End Date Status montelukast (SINGULAIR) 10 MG tablet 0 12/04/2022 Active Diclofenac Sodium 1 % GEL Apply 2 g topically. 0 12/20/2022 Active celecoxib (CeleBREX) 200 MG capsule 0 12/04/2022 Active Fluticasone Furoate (Arnuity Ellipta) 100 MCG/ACT AEPB Inhale 1 Act into the lungs. 0 12/20/2022 Active insulin lispro (HumaLOG) injection 100 units/mL 150 Units. 0 10/11/2022 Active gabapentin (NEURONTIN) 600 MG tablet 0 12/04/2022 Active insulin lispro (HumaLOG) injection 100 units/mL 0 12/16/2022 Active Trulicity 0.75 MG/0.5ML subcutaneous pen-injector 0 12/05/2022 Active baclofen (LIORESAL) 10 MG tablet 0 12/04/2022 Active D3 Super Strength 50 MCG (1999 UT) CAPS 0 12/04/2022 Active cetirizine (ZyrTEC) 10 MG tablet 0 12/04/2022 Active albuterol 108 (90 Base) MCG/ACT inhaler Inhale 2 puffs into the lungs. 0 08/22/2022 Active Alcohol Swabs (Easy Touch Alcohol Prep Medium) 70 % PADS 0 12/04/2022 Active ipratropium-albuterol (DUO-NEB) 0.5-2.5 mg/mL nebulizer Inhale 3 mL into the lungs. 0 08/22/2022 Active metFORMIN (GLUCOPHAGE-XR) ER 24 hr tablet 500 mg 0 12/04/2022 Active ferrous sulfate 324 MG TBEC Take 1 tab po q 3x/week 30 tablet 2 08/26/2023 Active Semaglutide (OZEMPIC, 1 MG/DOSE, SC) Inject under the skin. 0 Active Ferrous Gluconate 324 (37.5 Fe) MG tablet TAKE 1 TABLET BY MOUTH 3 TIMES PER WEEK 36 tablet 1 03/10/2024 Active Active Problems Problem Noted Date Diagnosed Date Iron deficiency anemia due to chronic blood loss 12/10/2022 Social History Tobacco Use Types Packs/Day Years Used Date Smoking Tobacco: Former Cigarettes Q uit: 2013 Smokeless Tobacco: Never Tobacco Cessation:Counseling Given: Not Answered Alcohol Use Standard Drinks/Week Comments Not Currently 0 (1 standard drink = 0.6 oz pur e alcohol) Sex and Gender Information Value Date Recorded Sex Assigned at Female 12/23/2022 8:35 AM EDT Gender Identity Not on file Sexual Orientation Not on file Job Start Date Occupation Industry Not on file Not on file Not on file Last Filed Vital Signs Vital Sign Reading Time Taken Comments Blood Pressure 119/48 05/20/2024 10:40 AM EDT Pulse 75 05/20/2024 10:40 AM EDT Temperature 36.7 ??C (98 ??F) 05/20/2024 10:40 AM EDT Respiratory Rate - - Oxygen Saturation 99% 05/20/2024 10:40 AM EDT Inhaled Oxygen Concentration - - Weight 132.9 kg (293 lb) 05/20/2024 10:40 AM EDT Height 162.6 cm (5' 4 ) 05/20/2024 10:40 AM EDT Body Mass Index 50.29 05/20/2024 10:40 AM EDT Plan of Treatment Health Maintenance Due Date Last Done Comments Hepatitis B Vaccines (1 of 3 - 3-dose series) 1988 Hepatitis C Screening 1988 Depression Screening 2000 BMI Counseling 2006 Preventative Health Evaluation 2006 Cervical Cancer Screening (Pap Smear) 2009 COVID-19 Vaccine ( season) 2024 07/20/2022, 05/24/2022, 11/27/2020 Influenza Vaccine (#1) 2024 2, 05/15/2021, 05/04/2020, Additional history exists DTap / Tdap / Td (2 - Td or Tdap) 04/10/2027 04/10/2017 Pneumococcal Vaccine Aged Out 04/10/2017 No long er eligible based on patient's age to complete this topic RSV Ped < 20 months Aged Out No longe r eligible based on patient's age to complete this topic Care Teams Insurance Defense Paralegal Relationship Specialty Start Date End Date Branden Henson MD PCP - General Internal Medicine 11/19/22
--- OUTSIDE RECORDS SUMMARY | 2024-10-07 08:52 | XMS_ITS | Encounter Summary ---
Author Organization [place] [place] [address] Care Team Providers Care Nerve Specialist Name Role Phone Branden Henson MD Primary Care Provider [phone] Encounter Details Date Type Department Care Team (Late st Contact Info) Description 05/20/2024 10:32 AM EDT Hospital Encounter TH HISTORIC ENCOUNTERS EASTERN CONVERSION ONLY Charleen Agustin PA [address] [place] [address] Social History Tobacco Use Types Packs/Day Years [...] not to disclose 2023 1:07 PM EST documented as of this encounter Last Filed Vital Signs Vital Sign Reading Time Taken Comments Blood Pressure 119/48 05/20/2024 10:40 AM EDT Pulse 75 05/20/2024 10:40 AM EDT Temperature - - Respiratory Rate - - Oxygen Saturation - - Inhaled Oxygen Concentration - - Weight 133 kg (293 lb) 05/20/2024 10:40 AM EDT Height 162.6 cm (5' 4 ) 05/20/2024 10:40 AM EDT Body Mass Index 50.29 05/20/2024 10:40 AM EDT documented in this encounter Progress Notes * SANDRA Buckley 05/20/2024 10:30 AM EDT Images from the original note were not included. Progress Notes by Charleen Agustin PA-C at 05/20/2024 10:30 AM Author: Charleen Agustin PA-C Service: -- Author Type: Physician Elementary Instructional Coach Filed: 05/20/2024 11:19 AM Encounter Date: 05/20/2024 Status: Signed Air Marshal: Charleen Agustin PA-C (Physician Elementary Instructional Coach) Cosigner: Sumeet Ragland MD at 05/20/2024 1:36PM HPI: 33-year-old Tajik-speaking female with past medical history of asthma, morbid obesity, T2DM, hypertension, hyperlipidemia, fatty liver disease, fibromyalgia, lichen simplex chronicus, MARIAJOSE on CPAP who returns to our hematology team for follow-up of HEMANT. She is here for 6-month follow-up of anemia. Labs obtained yesterday showed anemia remains controlled. H&H is within normal limits and iron studies are also satisfactory. She has been taking oraliron 3 times a week. She hasn't had an infusion since December 2022. No clinical bleeding or black stools. Her menses have been light and she has had gaps of 40-50 days in between cycles. She has constipation at baseline and take bowel meds as needed. She is being followed by [facility] bariatric team. Because she transitioned from [facility] to [facility], plans for surgery got delayed. Bariatric surgery should be coming up in the near future though. She is followed by the arthritis Center. On Celebrex, no longer on Meloxicam. Nosebleeds resolved since discontinuation of meloxicam. Aside from chronic fatigue and joint pain, overall she feels welland has no new medical complaints at this time. She denies fever or chills, night sweats, headache,dizziness, abnormal cravings, shortness of breath. The following is copied from OV notes on 02/17/23 and reviewed: Patient received 2 iron infusions on 12/20 and 12/25. She is feeling much better. Blood work from 02/12/2023 showed resolution of anemia with normal H&H at 11.5 and 36.4, normal MCV 81.1, normal platelet counts. WBC count is back to normal at 10.7 and RBC count is also within normal limits. Neutrophil count went down to 7.43, lymphocyte count remains normal. Iron levels improved. Iron went up to 36, TIBC is low at 202, % Fe Sat is 18 and ferritin is 132. She is currently not on any iron supplementation. LMP was at the end of November. Her menstrual flow is heavy for the first 2 or 3 days as opposed to 7 to 10 days previously. Patient is being followed by the bariatric team from [facility]. She will be undergoing bariatric surgery in the next few months. She is on a diet in preparation for her surgery and has managedto lose 14 pounds. She has more energy and has been exercising regularly. Her A1c went down from 12to 7 point something. Overall she feels much better and has no medical complaints at this time. Denies any rectal bleeding or black stools. The following is copied from OV on 12/10/22 and reviewed: Most recent labs from 10/30/2022 showed new anemia with low hemoglobin at 10.3 and low hematocrit at33.6 with borderline normal MCV at 79.6. RBC count is normal. Platelet count is normal. WBC count is elevated at 13.5. Upon further review of previous records, her wbc has been minimally elevated since 2018, it oscillated between 10.9 and 12.1 with some normal values here and there in between. Patient shares with me that about 5 years ago while in [place] she developed heavy menses. [place] the [place] and heavy menses got worse. She was seen by an EMBROIDERY OPERATOR at that time and an IUD was placed. A year later she had complications with IUD so she has not had an IUD since. She is not on any BCP. 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 However, she reports nosebleeds about 3 times a week for the past 2 months. Each time she bleeds for about 3 minutes. 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 She is a former smoker but only smoked for about a year. Rare alcohol use. She is on Advair inhalerand she uses her rescue inhaler approximately 3x/month. No history of gastric surgery. She will be seeing a weight loss surgeon at the end of this week. She has been on once daily oral iron supplementation for the past 4 years. She tolerates it well. No history of blood transfusion or IV iron infusion. Endocrinology provider also referred patient to GI for further evaluation of black stools in the setting of anemia. Patient told me a few weeks ago she had 2 episodes of black stools but otherwise her stools have been normal. She admits to fatigue, episodic headache, and shortness of breath on e xertion. She denies unexpected weight loss, frequent infections, hemoptysis, dizziness, vision changes, chest pain, palpitations, GI sxs, hematuria. ROS: GENERAL: no malaise, no significant weight loss or fever NECK: No lumps, goiter, pain or significant neck swelling RESPIRATORY: No cough, wheezing or shortness of breath CARDIOVASCULAR: No chest pain, leg swelling or palpitations GI: No abdominal discomfort, blood in stools or black stools MUSCULOSKELETAL: No joint pain or swelling, back pain, or muscle pain. HEMATOLOGY/LYMPHOLOGY + nosebleeds; No prolonged bleeding, easy bruisability or swollen nodes Other Systems review is non contributory PAST MEDICAL HISTORY: Active Ambulatory Problems Diagnosis Date Noted ? Iron deficiency anemia due to chronic blood loss 12/10/2022 Resolved Ambulatory Problems Diagnosis Date Noted ? No Resolved Ambulatory Problems Past Medical History: Diagnosis Date ? Asthma ? Diabetes mellitus (HCC) ? Fibromyalgia ? Hepatic steatosis ? Hyperlipidemia ? Hypertension ? Morbid obesity with BMI of 50.0-59.9, adult (HCC) PAST SURGICAL HISTORY: Past Surgical History: Procedure Laterality Date ? SECTION 2012 SOCIAL HISTORY: Social History Tobacco Use ? Smoking status: Former Types: Cigarettes Quit date: 2013 Years since quittin.7 ? Smokeless tobacco: Never Substance Use Topics ? Alcohol use: Not Currently FAMILY HISTORY: Paternal grandmother had cancer but she does not know what type of cancer, but she from it in her 80s maternal grandmother had ovarian cancer and colon cancer 2 years ago. She is still alive in her 70s. No family history of anemia. MEDICATIONS: Current Outpatient Medications: ? albuterol 108 (90 Base) MCG/ACT inhaler, Inhale 2 puffs into the lungs., Disp: , Rfl: ? baclofen (LIORESAL) 10 MG tablet, , Disp: , Rfl: ? celecoxib (CeleBREX) 200 MG capsule, , Disp: , Rfl: ? cetirizine (ZyrTEC) 10 MG tablet, , Disp: , Rfl: ? D3 Super Strength 50 MCG (2000 UT) CAPS, , Disp: , Rfl: ? Diclofenac Sodium 1 % GEL, Apply 2 g topically., Disp: , Rfl: ? Ferrous Gluconate 324 (37.5 Fe) MG tablet, TAKE 1 TABLET BY MOUTH 3 TIMES PER WEEK, Disp: 36 tablet, Rfl: 1 ? ferrous sulfate 324 MG TBEC, Take 1 tab po q 3x/week, Disp: 30 tablet, Rfl: 2 ? Fluticasone Furoate (Arnuity Ellipta) 100 MCG/ACT AEPB, Inhale 1 Act into the lungs., Disp: , Rfl: ? gabapentin (NEURONTIN) 600 MG tablet, , Disp: , Rfl: ? insulin lispro (HumaLOG) injection 100 units/mL, 150 Units., Disp: , Rfl: ? insulin lispro (HumaLOG) injection 100 units/mL, , Disp: , Rfl: ? ipratropium-albuterol (DUO-NEB) 0.5-2.5 mg/mL nebulizer, Inhale 3 mL into the lungs., Disp: , Rfl: ? metFORMIN (GLUCOPHAGE-XR) ER 24 hr tablet 500 mg, , Disp: , Rfl: ? montelukast (SINGULAIR) 10 MG tablet, , Disp: , Rfl: ? Semaglutide (OZEMPIC, 1 MG/DOSE, SC), Inject under the skin., Disp: , Rfl: ? Trulicity 0.75 MG/0.5ML subcutaneous pen-injector, , Disp: , Rfl: ? Alcohol Swabs (Easy Touch Alcohol Prep Medium) 70 % PADS, , Disp: , Rfl: You are allergic to the following Date Reviewed: 12/10/2022 No active allergies PHYSICAL EXAM: BP 119/48 Pulse 75 Temp 98 ??F (36.7 ??C) Ht 5' 4 (1.626 m) Wt 132.9 kg (293 lb) SpO2 99% BMI 50.29 kg/m?? APPEARANCE: Alert and in no acute distress EYES: PERRL, conjunctiva pink and sclera are Normal without icterus ORAL CAVITY: No erythema or exudates NECK: Neck supple, no adenopathy, HEART: RRR, no murmurs, no gallops, no JVD appreciated LUNG: clear to auscultation bilaterally ABDOMEN: Obese, Bowel sounds normoactive, no bruits, soft, non-tender, without organomegaly or palpable masses EXTREMITIES: Extremities warm and well perfused without clubbing, cyanosis, rash or edema NEURO: Oriented X 3, no focal weakness LABS: Testing: Review of Lab results , interpreted Review of External Documentation Tests ordered - Iron studies today; CBCd + + iron/TIBC + Ferritin + B12 + folate in [address](R) 1. Iron deficiency anemia due to chronic blood loss IRON DEFICIENCY ANEMIA DUE TO BLOOD LOSS 2. Menorrhagia with irregular cycle MENOMETRORRHAGIA 3. Morbid obesity with BMI of 50.0-59.9, adult (HCC) BODY MASS INDEX 40+ - SEVERELY OBESE 4. 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 and more spaced out; irregular menses -S/P Feraheme x 2 infusions on 12/20/22 and 12/25/22 -Frequent nosebleeds resolved after she stopped meloxicam -Endoscopy in 2022 did not reveal any bleeding per patient (I did not see the report) -Colonoscopy not deemed necessary per GI team, according to patient -Iron levels stable; she has been taking oral iron 3x/week -FOV in 6 months with labs prior - lab slip provided (B12/folate added in case she has undergone bariatric surgery) or RTO sooner prn Leukocytosis/obesity/asthma: -Mild, cyclic -WBC has been mildly elevated since 2018 -Steroid inhaler as well as obesity and MARIAJOSE can account for chronic intermitent elevation as well as chronic inflammation from joint aches ([facility]) -Followed by Endo (Mailssa Cross); started on ozempic on 08/15/23 to help with diabetes and weight loss -Followed by [facility] Bariatric surgery team -Bariatric surgery in the near future -Monitor wbc, although this is likely benign intermittent leukocytosis Wt Readings from Last 3 Encounters: 05/20/24 132.9 kg (293 lb) 11/18/23 134.3 kg (296 lb) 08/19/23 135.6 kg (299 lb) Case previously discussed with Dr. Ragalnd. Charleen Agustin PA-C Cc: Branden Henson MD Sign: Charleen Agustin PA-C Hematology/Oncology [facility] [phone] documented in this encounter Plan of Treatment Upcoming Encounters Date Type Department Care Team (Late st Contact Info) Description 11/02/2024 10:00 AM EDT Office Visit Urogynecology [address] [phone] Matilde Arnett MD [address] [place] [address] 11/18/2024 8:30 AM EDT Office Visit [facility] Hematology Oncology [address] [place] [address] Charleen Agustin PA [address] [place] [address] documented as of this encounter Procedures Procedure Name Priority Date/Time Associated Diagnosis Comments ..MISCELLANEOUS REFERENCE LAB TEST 05/20/2024 documented in this encounter Results * Miscellaneous reference lab test (05/20/2024) us Provider Onbase MD LAB BLOOD ORDERABLES Final Re sult documented in this encounter Visit Diagnoses Not on filedocumented in this encounter Care Teams Nerve Specialist Relationship Specialty Start Date End Date Branden Henson MD [address] [place] [id number] PCP - General Internal Medicine 06/08/19 documented as of this encounter
--- OUTSIDE RECORDS SUMMARY | 2024-10-07 08:52 | XMS_ITS | Encounter Summary ---
Author Organization [place] [address] Care Team Providers Care Print Graphic Designer Name Role Phone Branden Henson MD Primary Care Provider [phone] Encounter Details Date Type Department Care Team (Late st Contact Info) Description 05/20/2024 10:30 AM EDT Hospital Encounter TH HISTORIC ENCOUNTERS EASTERN CONVERSION ONLY Charleen Agustin PA [address] [place] [address] Social History Tobacco Use Types Packs/Day Years [...] PM EST documented as of this encounter Plan of Treatment Upcoming Encounters Date Type Department Care Team (Late Contact Info) Description 11/02/2024 10:00 AM EDT Office Visit U[address]gynec[address] [phone] Matilde Arnett MD [address] [place] [address] 11/18/2024 8:30 AM EDT Office Visit [facility] Hematology Oncology [address] [place] [address] Charleen Agustin PA [address] [place] [address] documented as of this encounter Visit Diagnoses Not on filedocumented in this encounter Care Teams Print Graphic Designer Relationship Specialty Start Date End Date Branden Henson MD [address] [place] [address] PCP - General Internal Medicine 06/08/19 documented as of this encounter
--- OUTSIDE RECORDS SUMMARY | 2024-10-07 08:52 | XMS_ITS | Continuity of Care Document ---
Author Organization [facility] Address [address] [place] [address] Phone Care Team Providers Care Video Recorder Mechanic Name Role Phone Macrina Aguillon MD Unavailable [...] Diagnoses Date Provider Office/outpati ent visit,est, mod [facility], [address] [place] [address], [facility], tel:[phone] MOB Medical heavy periods (chief complaint) Chest PainMenses, Irregular Bleeding, Pal Schrader. [address] [place] [address] [id number] [place], [place], [id number], . tel:[phone] [facility], [address] [place] [address], [address], tel:[phone] MOB Medical abnormal pap (chief complaint) CHLAMYDIAL INFECTION NOSAmenorrhea, Missed Menses Draganescu Jazz. Betty Mallory, [id number] [place], [place], [facility], . tel:[phone], [facility], tel:[phone] [facility] Medical PAP test (chief complaint)h eadache (chief complaint) Pap Screen Routine TELECOMMUNICATION TOWER TECHNICIAN ExamIntertrigo Viviancu Jazz. [address], [id number] [place], [place], [facility], . tel:[phone] [facility], [address] [place] [address], [facility], tel:[phone] [facility] Medical heavy periods (chief complaint)r .m.c visit (chief complaint) Obesity, MorbidFAM HX-DIABETES MELLITUSMenses, Irregular Bleeding, Jackieanescu Jazz. [address], [id number] [place], [place], [facility], . tel:[phone] Family History Family Member Type Diagnosis Age At Onset Father Problem (finding) Alive and well Father Problem (finding) Diabetes mellitus Mother Problem (finding) No relevant family hx Mother Problem (finding) raised blood lipids Mother Problem (finding) Diabetes mellitus Payers Payer name Insurance type Covered constitution party ID Authoriza tion(s) No Information Social [...]
== END 2024-10-07 09:26 | disposition home or self-care (01) ==
PROVIDERS: Visit Provider Physician Assistant Medical
DX: G47.33 Obstructive sleep apnea (adult) (pediatric) (principal); F41.9 Anxiety disorder, unspecified; R53.83 Other fatigue; G47.9 Sleep disorder, unspecified; E66.01 Morbid (severe) obesity due to excess calories
CPT/HCPCS: 99214

== ENCOUNTER 2025-01-27 19:05 | Emergency (ER) | payer OTHER, SELFPAY ==
--- NOTE | ~2025-01-27 | XR_ITS ---
CLINICAL HISTORY: pain 3 views lumbar spine Comparison: None Findings: Normal heights of 5 lumbar vertebrae accounting for small Schmorl's nodes. Small Schmorl's nodes also present in imaged thoracic vertebrae with asymmetric 12th ribs noted in the mehqc-zp-qbid. Degenerative changes include lower lumbar facet arthropathy. No significant listhesis of the imaged lumbar vertebrae. L5 pars are partly obscured, without definite lysis. Sacrum and SI joints are partly obscured with mild sclerosis adjacent to imaged SI joints. Mild-moderate stool burden in the bupsz-gm-oowa IMPRESSION: 1. Degenerative changes include lower lumbar facet arthropathy. 2. No acute compression fracture or malalignment of the 5 lumbar vertebrae. This document has been electronically signed by: Leonel Nava MD on 01/27/2025 20:13:10
[2025-01-27 19:16] VITALS: BP 126/67; PULSE 84; RESP 17; TEMP 37.1; O2SAT 98; BMI 53.1
--- NOTE | 2025-01-27 19:17 | ED_ITS ---
HPI - General Adult General Chief complaint: Back Pain/Injury Stated complaint: lower back pain Time Seen by Provider: 01/27/25 20:03 Source: patient, RN notes reviewed and old records reviewed Mode of arrival: ambulatory Limitations: no limitations History of Present Illness ED Provider: Ada HPI narrative: 34-year-old female presents for evaluation of lower back pain. Patient reports her pain started around 1:00 p.m. today. She denies any falls, twisting or pulling injuries. Her pain does not radiate. Denies any numbness, tingling Denies any fevers, chills pain She denies any abdominal pain, nausea vomiting, burning with urination or blood in the urine She reports her pain is an 03/27 Related Data Home Medications ?Medication ?Instructions ?Recorded ?Confirmed albuterol sulfate 90 mcg/actuation 2 puff inhalation Q4-6H PRN 12/12/22 07/06/24 aerosol inhaler (ProAir HFA) baclofen 10 mg tablet 10 mg PO TID PRN 12/12/22 07/06/24 blood-glucose meter (FreeStyle 12/12/22 07/06/24 Lite Meter kit) cetirizine 10 mg tablet 10 mg PO DAILY PRN 12/12/22 07/06/24 clotrimazole-betamethasone 1 1 appl topical BID 12/12/22 07/06/24 %-0.05 % topical cream fluticasone furoate 100 1 inh inhalation DAILY 12/12/22 07/06/24 mcg/actuation blister powder for inhalation (Arnuity Ellipta) fluticasone propionate 110 2 puff inhalation BID 12/12/22 07/06/24 mcg/actuation HFA aerosol inhaler (Flovent HFA) fluticasone propionate 50 2 spray intranasal DAILY 12/12/22 07/06/24 mcg/actuation nasal spray,suspension (Flonase Allergy Relief) insulin lispro 100 unit/mL 1 sliding scale dose subcut 12/12/22 07/06/24 subcutaneous solution (Admelog USEASDIRECTD U-100 Insulin lispro) insulin pump cart,automated,BT 12/12/22 07/06/24 (Omnipod 5 G6 Pods (Gen 5) subcutaneous cartridge) montelukast 10 mg tablet 10 mg PO BEDTIME 12/12/22 07/06/24 alcohol swabs (Easy Touch Alcohol pad topical BID 03/06/23 07/06/24 Prep Pads) blood sugar diagnostic (FreeStyle #10 ea 03/06/23 07/06/24 Lite Strips) diclofenac sodium 1 % topical gel g topical BID 03/06/23 07/06/24 hydroxychloroquine 200 mg tablet 200 mg PO BID 03/06/23 07/06/24 lancets 28 gauge (FreeStyle #100 ea 03/06/23 07/06/24 Lancets) pantoprazole 40 mg tablet,delayed 40 mg PO DAILY 03/06/23 07/06/24 release prazosin 2 mg capsule 2 mg PO BEDTIME 03/06/23 07/06/24 sertraline 100 mg tablet 150 mg PO DAILY 10/07/24 10/07/24 Previous Rx's ?Medication ?Instructions ?Recorded cholecalciferol (vitamin D3) 125 125 mcg PO DAILY 90 days #90 caps 06/19/23 mcg (5,000 unit) capsule cyanocobalamin (vitamin B-12) 500 500 mcg PO DAILY #90 tabs 10/01/23 mcg tablet sennosides 8.6 mg tablet (senna) 17.2 mg (2 x 8.6 mg) PO BEDTIME 10/01/23 PRN constipation 90 days #180 tabs ferrous sulfate 325 mg (65 mg 325 mg PO DAILY Anemia 90 days #90 10/08/24 iron) tablet tabs distilled water #1 ea 11/11/24 cyclobenzaprine 10 mg tablet 10 mg PO TID PRN muscle spasm #20 01/27/25 tabs dexamethasone 4 mg tablet 4 mg PO BID #6 tabs 01/27/25 Allergies Allergy/AdvReac Type Severity Reaction Status Date / Time No Known Allergies Allergy Verified 01/27/25 19:18 Review of Systems Constitutional: Constitutional: Denies body ache(s), Denies chills and Denies fever(s) Cardiovascular: Cardiovascular: Denies chest pain Gastrointestinal: Gastrointestinal: Denies abdominal pain Genitourinary: Genitourinary: Denies dysuria Musculoskeletal: Musculoskeletal: Reports back pain PMFSH Past Medical History Surgical History Hx of eye surgery Hx of section Family History Family History Mother No problems noted. Father Hypertension Diabetes Neuropathy Brother No problems noted. Brother No problems noted. Sister Diabetes Sister No problems noted. Daughter Asthma Epilepsy Social History Social History Alcohol intake: never Patient Tobacco Use Status: Never used Tobacco Advance Directives: No Advance Directives Information Provided: Yes Do you have a plan to hurt others: No Plan Physical Exam ED Vital Signs: Vital Signs - 24 hr 01/27/25 19:16 Temperature 98.7 F Pulse Rate 84 Respiratory Rate 17 Blood Pressure 126/67 Pulse Oximetry 98 Oxygen Delivery Method Room Air BMI result Body Mass Index 53.1 Const General: healthy appearing, comfortable, no acute distress, alert and awake Nutritional Appearance: well nourished Orientation/consciousness: patient oriented x3 HENMT Head: Yes normocephalic and Yes atraumatic Eyes Eyelids: Yes eyelids normal Conjunctivae: conjunctivae normal Sclerae: sclerae normal Corneas: corneas normal Pupils: Equal, round and reactive pupils present EOM: EOMs intact bilaterally Neck Neck: Yes full ROM Resp Effort & Inspection: normal respiratory effort, able to speak in complete sentences and not labored Skin General skin exam: elasticity normal Neuro General: patient oriented x3 Cranial nerves: Yes Equal, round and reactive pupils present and Yes Bilaterally intact EOM present Cognition (Neuro): normal cognition Extrem Other: Moving all extremities well without any obvious deformities Course Course Course Narrative: RME, this is a rapid medical exam performed by Dylan Caballero please refer to primary provider for complete H&P- 34 year old female presents for evaluation of low back pain for the alst few days. Plan for lumbar x-ray. Medications Administered Discontinued Medications Generic Name Dose Route Start Last Admin Trade Name Freq PRN Reason Stop Dose Admin Dexamethasone 4 mg 01/27/25 20:04 01/27/25 20:08 Dexamethasone 4 Mg Tablet PO 01/27/25 20:05 4 mg ONCE ONE Administration Ketorolac Tromethamine 30 mg 01/27/25 20:04 01/27/25 20:08 Ketorolac Tromethamine 30 Mg/Ml Vial IM 01/27/25 20:05 30 mg ONCE ONE Administration Medical Decision Making Medical Decision Making MDM Narrative: 34-year-old female presents for evaluation of lower back pain. He has no radiation of the pain, no fevers or chills to suggest infectious cause. She complains of pain but has no objective weakness. No warning signs for cauda equina syndrome. Plan for symptomatic treatment with dexamethasone and cyclobenzaprine in addition to bpwn-txl-zkrtnny analgesia. X-ray shows mild degenerative changes Differential Diagnosis Differential Diagnoses: The differential diagnosis associated with the presentation includes Back pain Radiculopathy Sciatica Arthropathy Lab Data Labs: Lab Results 01/27/25 Range/Units 19:39 Urine Test NEGATIVE (NEGATIVE) Radiology Impression Discussion of test interpretation with radiology: I have reviewed the radiologist's reading. Radiologist Impression: Findings: Normal heights of 5 lumbar vertebrae accounting for small Schmorl's nodes. Small Schmorl's nodes also present in imaged thoracic vertebrae with asymmetric 12th ribs noted in the myfkb-nt-qbjy. Degenerative changes include lower lumbar facet arthropathy. No significant listhesis of the imaged lumbar vertebrae. L5 pars are partly obscured, without definite lysis. Sacrum and SI joints are partly obscured with mild sclerosis adjacent to imaged SI joints. Mild-moderate stool burden in the idlus-pi-gxkc IMPRESSION: 1. Degenerative changes include lower lumbar facet arthropathy. 2. No acute compression fracture or malalignment of the 5 lumbar vertebrae. This document has been electronically signed by: Leonel Nava MD on 01/27/2025 20:13:10 Discharge Plan Discharge Clinical Impression: Lumbar radiculopathy Patient Disposition: Home, Self-Care Instructions: Back Pain (ED) Additional Instructions: Your x-ray shows some arthritis in the spine. You likely have some inflammation causing a pinched nerve You may use ibuprofen/Tylenol for pain. Take dexamethasone 4 mg daily for the next 3 days You may take cyclobenzaprine as needed for muscle spasms. This may make you drowsy, do not drink alcohol or drive after taking Prescriptions: New cyclobenzaprine 10 mg tablet 10 mg PO TID PRN (Reason: muscle spasm) Qty: 20 0RF dexamethasone 4 mg tablet 4 mg PO BID Qty: 6 0RF No Action cholecalciferol (vitamin D3) 125 mcg (5,000 unit) capsule 125 mcg PO DAILY 90 Days Qty: 90 1RF cyanocobalamin (vitamin B-12) 500 mcg tablet 500 mcg PO DAILY Qty: 90 0RF sennosides [senna] 8.6 mg tablet 17.2 mg PO BEDTIME PRN (Reason: constipation) 90 Days Qty: 180 0RF ferrous sulfate 325 mg (65 mg iron) tablet 325 mg PO DAILY MDD 325mg 90 Days Qty: 90 3RF Rx Instructions: take one tablet daily by mouth with orange juice (DME) distilled water gallon See Rx Instructions .Route .MEDSUPPLY Qty: 1 6RF Rx Instructions: Use one bottle of distilled water in CPAP machine as needed. insulin lispro [Admelog U-100 Insulin lispro] 100 unit/mL solution 1 sliding scale dose subcut USEASDIRECTD (DME) Omnipod 5 G6 Pods (Gen 5) Cartridge See Rx Instructions .Route Rx Instructions: As directed baclofen 10 mg tablet 10 mg PO TID PRN cetirizine 10 mg tablet 10 mg PO DAILY PRN (DME) blood-glucose meter [FreeStyle Lite Meter] Kit See Rx Instructions .Route Rx Instructions: As directed clotrimazole-betamethasone 1-0.05 % cream 1 appl topical BID montelukast 10 mg tablet 10 mg PO BEDTIME albuterol sulfate [ProAir HFA] 90 mcg/actuation HFA aerosol inhaler 2 puff inhalation Q4-6H PRN fluticasone propionate [Flonase Allergy Relief] 50 mcg/actuation spray,suspension 2 spray intranasal DAILY Rx Instructions: administer into each nostril Arnuity Ellipta 100 mcg/actuation blister with device 1 inh inhalation DAILY fluticasone propionate [Flovent HFA] 110 mcg/actuation HFA aerosol inhaler 2 puff inhalation BID pantoprazole 40 mg tablet,delayed release (DR/EC) 40 mg PO DAILY (DME) lancets [FreeStyle Lancets] 28 gauge misc See Rx Instructions .ROUTE QID Qty: 100 Rx Instructions: As directed (DME) FreeStyle Lite Strips Strip See Rx Instructions .ROUTE TID Qty: 10 Rx Instructions: As directed alcohol swabs [Easy Touch Alcohol Prep Pads] Pads, Medicated topical BID hydroxychloroquine 200 mg tablet 200 mg PO BID prazosin 2 mg capsule 2 mg PO BEDTIME diclofenac sodium 1 % gel topical BID sertraline 100 mg tablet 150 mg PO DAILY Interventions: ED Discharge Assessment Last Done: 01/27/25 20:27 Print Language: Albanian
--- OUTSIDE RECORDS SUMMARY | 2025-01-27 19:42 | XMS_ITS | Clinical Summary ---
Author Organization [facility] Address [address] [place] [address] Care Team Providers Care Tong Carrier Name Role Phone Branden Henson MD Primary Care Provider [phone] Allergies No known active allergies Medications Medication [...] season) 2024 07/20/2022, 05/24/2022, 11/27/2020 Influenza Vaccine (Season Ended) 2025 05/16/2022, 05/15/2021, 05/04/2020, Additional history exists DTap / Tdap / Td (2 - Td or Tdap) 04/10/2027 04/10/2017 Pneumococcal Vaccine Aged Out 04/10/2017 No long er eligible based on patient's age to complete this topic RSV Ped < 20 months Aged Out No longe r eligible based on patient's age to complete this topic Care Teams Tong Carrier Relationship Specialty Start Date End Date Branden Henson MD PCP - General Internal Medicine 11/19/22
[2025-01-27 19:49] LABS: UPreg QC Valid YES; Urine Pregnancy NEGATIVE (NEGATIVE)
[2025-01-27] MEDS: dexAMETHasone 4 MG TABLET PO (20:08)
[2025-01-27] MEDS: Ketorolac Tromethamine 30 MG/ML VIAL IM (20:08)
--- NOTE | 2025-01-27 20:12 | PC.NURSE ---
pt medicated per oct, tolerated well, awaiting xray
[2025-01-27 20:27] VITALS: BP 130/61; PULSE 81; RESP 18; TEMP 37; O2SAT 100
== END 2025-01-27 20:28 | disposition home or self-care (01) ==
PROVIDERS: Physician Assistant; Emergency Provider Emergency Medicine Emergency Medical Services; PCP Internal Medicine
DX: M54.16 Radiculopathy, lumbar region (principal); E11.9 Type 2 diabetes mellitus without complications; Z79.4 Long term (current) use of insulin; Z79.899 Other long term (current) drug therapy
CPT/HCPCS: 72100; 81025; 96372; 99283; 99284; J1885; J8540

== ENCOUNTER → 2025-01-27 19:17 | Outpatient (BNV) | payer OTHER, SELFPAY | PROVIDERS: Emergency Provider Emergency Medicine Emergency Medical Services; PCP Internal Medicine; Visit Provider Radiology Neuroradiology | DX: M51.360 Other intervertebral disc degeneration, lumbar region with discogenic back pain only (principal); M47.816 Spondylosis without myelopathy or radiculopathy, lumbar region | CPT/HCPCS: 72100 ==

== ENCOUNTER 2025-04-04 09:18 | Outpatient (AMB) | payer OTHER, SELFPAY ==
--- OUTSIDE RECORDS SUMMARY | 2007-10-15 11:53 | XMS_ITS | Continuity of Care Document ---
Author Organization [facility] Address [address] [place] [address] Phone Care Team Providers Care Software Client Architect Name Role Phone Macrina Aguillon MD Unavailable Unavailable Medications Medication Instructions Dosage Effective Dates (start - stop) Status Comments Lotrisone 1 %-0.05 % Topical Cream - Active Procedures Procedure Date Office/outpatient visit,est, mod 2007 Advance Directives Directive Yes / No Effective Date File Name Resuscitation Not Answered N/A N/A Life Support Not Answered N/A N/A Intubation Not Answered N/A N/A Antibiotics Not Answered N/A N/A IV Fluid Support Not Answered N/A N/A Tube Feed Not Answered N/A N/A Other Directive N/A N/A WARNING:The information contained in this section is historical and is provided for information only and does not constitute a legal document or any assurance that the information is still accurate. Please verify the information with the thomas of the legal document before using it for clinical purposes. Encounters Encounter Description Practice Location Reason(s) For Visit Diagnoses Date Provider Office/outpati ent visit,est, mod [facility], [address] [place] [address], [facility], tel:[phone] MOB Medical heavy periods (chief complaint) Chest PainMenses, Irregular Bleeding, Pal Schrader. [address] [place] [address] [id number] [place], [place], [id number], . tel:[phone] [facility], [address] [place] [address], [address], tel:[phone] MOB Medical abnormal pap (chief complaint) CHLAMYDIAL INFECTION NOSAmenorrhea, Missed Menses Draganescu Jazz. Betty Mallory, [id number] [place], [place], [facility], . tel:[phone], [facility], tel:[phone] [facility] Medical PAP test (chief complaint)h eadache (chief complaint) Pap Screen Routine TUB CHUCKER ExamIntertrigo Viviancu Jazz. [address], [id number] [place], [place], [facility], . tel:[phone] [facility], [address] [place] [address], [facility], tel:[phone] [facility] Medical heavy periods (chief complaint)r .m.c visit (chief complaint) Obesity, MorbidFAM HX-DIABETES MELLITUSMenses, Irregular Bleeding, Jackieanescu Jazz. [address], [id number] [place], [place], [facility], . tel:[phone] Family History Family Member Type Diagnosis Age At Onset Father Problem (finding) Alive and well Father Problem (finding) Diabetes mellitus Mother Problem (finding) No relevant family hx Mother Problem (finding) raised blood lipids Mother Problem (finding) Diabetes mellitus Payers Payer name Insurance type Covered democrat ID Authoriza tion(s) No Information Social History Type Description Quantity Date Captured Comments Alcohol Use Details Unknown Caffeine Use Details Unknown Tobacco Use Status No Information Smoking Status No Information Sex Female Vital Signs Date / Time: Height Weight BMI Pulse Rate Blood Pressure Temperature Respiratory Rate Body Surface Area Head Circumference Head Circ. Percentile Wt./Tristan. Percentile BMI percentile Pulse Ox Inhaled Ox 3:54 PM 250.00 lbs 100 /min 120/70 mm[Hg] 97.60 F Chief Complaint And Reason For Visit From encounter dated '10/15/2007 15:53'. heavy periods (chief complaint). Description: Onset: 4. Severity level is mild. Additional information: irrigular period. History Of Present Illness Encounter Date Complaint History Of Prese nt Illness No Information Instructions Date Instruction Additional Infor mation No Information Assessments Type Assessment Date No Information
[2025-04-04 09:22] VITALS: BP 122/86; PULSE 77; O2SAT 97; BMI 53.2
--- NOTE | 2025-04-04 09:22 | MHC.OFFVIS ---
Vital Signs 04/04/25 09:22 Height 5 ft 3 in Weight 300 lb 4 oz BMI 53.2 BP 122/86 Blood Pressure Location Rt brachial Position Sitting Pulse 77 Pulse Source Pulse Oximeter Pulse Oximetry (%) 97 Oxygen Delivery Method Room Air Intake Visit Reasons: 6 mo follow up Intake Note: Patient presents follow up MARIAJOSE. Labs/Compliance in chart(88/90 days, >=4hrs-98%, Average usage- 7hr 49 min, Pressure- 8cm, Med leaks- 0.7, AHI-0.3). Patient states she feels like her mask is leaking and making squeaking sound and feels like she is sufficating Also, vision issues-eye pressure(both eyes cant see). Communication Engineer Required: Yes Communication Engineer Language: Radiotelegraph Operator Services: Communication Engineer Present Communication Engineer Name: Mani [id number] Information Interpreted: non-clinical & clinical Accompanied by: Self / Same As Patient Allergies No Known Allergies Allergy (Verified 04/04/25 09:28) HPI Comments Details: 33 y/o female with h/o asthma presents for a f/u of severe sleep apnea. Split Night Study Aug 24 2024 CPAP pressures adjusted to [id number], patient has severe sleep apnea with AHI 26/hr and O2 [place] 84% CPAP Compliance Report 12/2024 - 03/2025 Total avg use is 88/90 days and >4 hours total usage 7hrs and 49 min Press 8cmH20 Leaks 3.6 L/min AHI 0.3 She is comfortable with the mask and sleeps well. She feels less fatigued during the day. She denies headaches. Patient states she feels like her mask is leaking and making a squeaking noise. She feels like she is suffocating as the pressures are not strong enough. She feels like she is still choking at night. The snoring has decreased significantly. She is seeing an Opthamologist for Glaucoma, pressures are elevated behind her eyes, and she loses vision in both her eyes. She is on Monjarou 0.25mg subcut every week, and followed by her endocrine. She says her pressures are at 4cmH20 and the machine is not working properly. She has asthma takes montelukast and uses albuterol PRN. She has RLS, with tingling and burning in the feet bilateral, will start her on lyrica 25mg po daily at bedtime. Anxiety is being managed by [facility] and therapist biweekly appts. along with SSRI. She is going to the gym 3x a week, walks on the treadmill for 30 min. 300lb today and BMI is 53 will f/u with weight management. She has fibromyalgia and osteoarthritis, she gets a corticosteroid shot with pain management. She cleans her mask daily, changes filters, uses distilled water. PFSH Surgical History Hx of eye surgery Hx of section Family History Mother No problems noted. Father Hypertension Diabetes Neuropathy Brother No problems noted. Brother No problems noted. Sister Diabetes Sister No problems noted. Daughter Asthma Epilepsy Social History Alcohol intake: never Patient Tobacco Use Status: Never used Tobacco Physical Exam Vital Signs: Last Vital Signs Pulse 77 04/04/25 09:22 BP 122/86 04/04/25 09:22 Pulse Ox 97 04/04/25 09:22 Oxygen Delivery Method Room Air 04/04/25 09:22 BMI result Body Mass Index 53.2 Const General: cooperative, comfortable and no acute distress Orientation/consciousness: patient oriented x3 HEENT Face and sinus: Yes normal facial exam and Yes face symmetric Mouth: tongue normal Eyes Pupils: Equal, round and reactive pupils present, Pupils normal by confrontation and Pupil accommodation reflex normal Resp Effort & Inspection: normal respiratory effort and able to speak in complete sentences Neuro General: patient oriented x3 and moves all extremities Cranial nerves: Yes CN's II-XII intact bilaterally, Yes Facial sensation intact/muscles of mastication intact, Yes Equal, round and reactive pupils present, Yes Normal facial strength present, Yes Midline tongue present, Yes Symmetric palate elevation present, Yes Ability to bilaterally rotate head present and Yes Ability to bilaterally elevate shoulders present Gait exam (Neuro): Normal gait present Motor exam (neuro): 5/5 motor strength present throughout Psych Thought process: Normal thought process present Thought content: Normal thought content present Results Reviewed Results Reviewed: CPAP Compliance Report 12/2024 - 03/2025 Total avg use is 88/90 days and >4 hours total usage 7hrs and 49 min Press 8cmH20 Leaks 3.6 L/min AHI 0.3 Assessment & Plan Assessment & Plan (1) MARIAJOSE on CPAP: Code(s): G47.33 - Obstructive sleep apnea (adult) (pediatric) Category: Medical (2) Asthma: Code(s): J45.909 - Unspecified asthma, uncomplicated Category: Medical Qualifiers: Asthma severity: unspecified severity Asthma persistence: unspecified Asthma complication type: unspecified Qualified Code(s): J45.909 - Unspecified asthma, uncomplicated (3) Anxiety: Code(s): F41.9 - Anxiety disorder, unspecified Category: Medical (4) Fatigue due to sleep pattern disturbance: Code(s): R53.83 - Other fatigue; G47.9 - Sleep disorder, unspecified Category: Medical (5) Morbid obesity: Code(s): E66.01 - Morbid (severe) obesity due to excess calories Category: Medical (6) History of burning pain in lower extremity: Code(s): Z87.39 - Personal history of other diseases of the musculoskeletal system and connective tissue Category: Medical Plan Severe MARIAJOSE ptatient is compliant, though the pressures are fluctuating to 8cmH20 and she is asthmatic, has albuterol prn. Allergies montelukast 10mg po daily at bedtime, per pt. request today. Reviewed labs with patient today. RX sent [facility] [place] Obesity BMI is elevated continue Monjarou and f/u with endocrine. RLS? parasthesias - Peripheral vs. Radicular neuropathy T2DM - Lyrica [facility], continue Sertraline as prescribed. F/U in 3 months due to med. changes to lyrica for neuropathy Medications: New pregabalin (Lyrica) 25mg po daily at bedtime for neuropathy 25 mg (1/2 x 50 mg) PO BEDTIME 45 caps 0RF peripheral neuropathy 3 months MDD 25mg Z87.39 - Personal history of other diseases of the musculoskeletal system and connective tissue Changed From montelukast 10 mg PO BEDTIME J45.909 - Unspecified asthma, uncomplicated To montelukast 10 mg PO BEDTIME 90 tabs 3RF asthma 3 months MDD 10mg J45.909 - Unspecified asthma, uncomplicated Refilled [distilled water] Use one bottle of distilled water in CPAP machine as needed. 1 ea 6RF cpap supplies G47.33 - Obstructive sleep apnea (adult) (pediatric) [distilled water] Use one bottle of distilled water in CPAP machine as needed. 1 ea 6RF cpap supplies G47.33 - Obstructive sleep apnea (adult) (pediatric) Patient Instructions: Sleep Hygiene provided: set a scheduled bedtime and wake time to help regulate the circadian rhythm and balance the release of pituitary hormones. Sleep in a dark room, temperatures below 68 degrees, and no devices n bed. Limit caffeinated products 6 hours prior to bed, and limit fluids 2-4 hours prior to bed. Gentle night yoga, diffusing essential oils, and playing soft music can be relaxing. Coding Level of Care Code Est Pt Level 4 (28731) Diagnoses MARIAJOSE on CPAP G47.33 Asthma, unspecified asthma severity, unspecified whether complicated, unspecified whether persistent J45.909 Asthma severity: unspecified severity Asthma persistence: unspecified Asthma complication type: unspecified Anxiety F41.9 Fatigue due to sleep pattern disturbance R53.83; G47.9 Morbid obesity E66.01 History of burning pain in lower extremity Z87.39
--- OUTSIDE RECORDS SUMMARY | 2025-04-04 09:47 | XMS_ITS ---
Author Name [facility] Organization Unknown Care Team Organization Name Specialty Phone Email Start Date End Da te [facility] RANDELL SHULTZ Primary Care 06/25/2022 4
--- OUTSIDE RECORDS SUMMARY | 2025-04-04 09:47 | XMS_ITS | Clinical Summary ---
Author Organization [facility] Address [address] [place] [address] Care Team Providers Care Customs And Immigration Officer Name Role Phone Branden Henson MD Primary Care Provider [phone] Allergies No known active allergies Medications Medication [...] 75 05/20/2024 10:40 AM EDT Temperature 36.7 C (98 F) 05/20/2024 10:40 AM EDT Respiratory Rate - [...] 2024 07/20/2022, 05/24/2022, 11/27/2020 Influenza Vaccine (#1) 2025 2, 05/15/2021, 05/04/2020, Additional history exists DTap / Tdap / Td (2 - Td or Tdap) 04/10/2027 04/10/2017 Pneumococcal Vaccine Aged Out 04/10/2017 No long er eligible based on patient's age to complete this topic RSV Ped < 20 months Aged Out No longe r eligible based on patient's age to complete this topic Care Teams Customs And Immigration Officer Relationship Specialty Start Date End Date Branden Henson MD PCP - General Internal Medicine 11/19/22
--- OUTSIDE RECORDS SUMMARY | 2025-04-04 09:47 | XMS_ITS | Encounter Summary ---
Author Organization [facility] Address [address] [place] [address] Care Team Providers Care Hot Cell Technician Name Role Phone Branden Henson MD Primary Care Provider [phone] Reason for Visit * Reason Onset Date Comments my chart apt 03/11/2025 Pt schedule apt thru my chart on 03/18/25- with Dr Henson Encounter Details Date Type Department Care Team (Late st Contact Info) Description 03/11/2025 Telephone Adult Medicine [address] [phone] Branden Henson MD [address] [place] [phone] my chart apt (Pt schedule apt thru my chart on 03/18/25- with Dr Henson) Social History Tobacco Use Types Packs/Day Years Used Date Smoking Tobacco: Never Cigarettes Qu it: 08/18/2012 Smokeless Tobacco: Never Alcohol Use Standard Drinks/Week Comments Yes 0 (1 standard drink = 0.6 oz pur e alcohol) Housing Instability Answer Date Recorde d Are you worried that in the next 2 months you may not have stable housing? No 03/07/2025 Food Access & Nutrition Answer Date Rec orded Do you have access to a vari ety of food including fruits and vegetables? No 03/07/2025 Access to Healthcare Answer Date Record ed Within the last 3 months, ho w many times did you visit the emergency department for your medical care? 1 03/07/2025 Health Literacy Answer Date Recorded How often do you need to hav e someone help you when you read instructions, pamphlets, or other written material from your doctor or pharmacy? Sometimes 03/07/2025 Caregiver: How often do you need to have someone help you when you read instructions, pamphlets, or other written material from your doctor or pharmacy? Not on file 03/07/2025 Financial Risk Answer Date Recorded How hard is it for you to pa y for the very basics like food, housing, medical care, and air conditioning / heating? Hard 03/07/2025 Transportation Answer Date Recorded Has the lack of transportati on kept you from meetings, work, or from getting things needed for daily living? No Has the lack of transportati on kept you from medical appointments or from getting medications? No 03/07/2025 Social Isolation Answer Date Recorded How often do you feel lonely or isolated from those around you? Sometimes 03/07/2025 Food Risk Answer Date Recorded Within the past 12 months we worried whether our food would run out before we got money to buy more. Often true 025 Within the past 12 months th e food we bought just didn't last and we didn't have money to get more. Sometimes true 03/07/2025 Dependent Care Answer Date Recorded Do you need help finding or paying for care for your loved ones. For example, professor of early childhood education or elderly care for an older adult? No 03/07/2025 Education Answer Date Recorded Do you think completing more education or training, like finishing a GED, going to college, or learning a trade, would be helpful for you? No 03/07/2025 Employment and Income Answer Date Recor ded During the last four weeks, have you been actively looking for work? Patient declined 03/07/2025 Living Situation Answer Date Recorded What is your living situation? 0 03/07/2025 Comments Unknown Sex and Gender Information Value Date Recorded Sex Assigned at Female 06/29/2024 1:07 PM EST Legal Sex Female 5:04 AM EST Gender Identity Female 06/29/2024 1:07 PM EST Sexual Orientation Choose not to disclose 2023 1:07 PM EST documented as of this encounter Progress Notes * Che Louis RN - 03/29/2025 3:25 PM EDT Called and spoke with pt, pt hasinv ongoing fibromyalgia pain sts not dif then when saw marizol 03/07-pt was referred to rheumatology. Tsts hasn't heard anything pt was given letter referred somewhere in [place]. Pt would like more local if possible given referrals number to discuss and advised would send referral info via [employer] * Nohemi Bonner RN - 03/11/2025 4:03 PM EDT Left vm for pt to return my call. * Latisha Rolle - 03/11/2025 3:56 PM EDT MyChart Booking requires triage for appropriateness: Patient booked appointment on [employer]. Please triage for appropriateness. Patient booking message: I have severe pain from fibromyalgia. and it's affecting the way I walk If pain or injury related- was it due to an accident at work or from a motor vehicle accident? If yes, date of accident/Injury: No. If yes, gather 3rd constitution party insurance information Third Democrat Information: not applicable Payor: [email or web address] HE[employer] PLAN / Plan: [email or web address] MEDICAID / Product Type: *No Product type* / PCP: Branden Henson MD documented in this encounter Plan of Treatment Upcoming Encounters Date Type Department Care Team (Late st Contact Info) Description 04/19/2025 10:00 AM EDT Office Visit Adult Medicine [facility] [address] [place] [phone] Ibeth Garcia NP [address] [place], [place] 04/21/2025 10:45 AM EDT Office Visit Endocrinology [facility] [address] [place] [address] Malissa Cross PA [address] [place] [address] 04/21/2025 1:00 PM EDT Office Visit Bariatric Surgery - [place] [address] [phone] Rachna Guillen MD [address] [phone] 05/20/2025 9:30 AM EDT Office Visit [facility] Hematology Oncology [address] [place] [phone] Charleen Agustin PA [address] [place] [address] 03/09/2026 2:00 PM EDT Office Visit Adult Medicine [facility] [address] [place] [address] Branden Henson MD [address] [place] [address] documented as of this encounter Visit Diagnoses Not on filedocumented in this encounter Additional Health Concerns Assessment Noted Time PHQ-9 Depression Total Score: 10 025 9:46 AM EDT documented as of this encounter Care Teams Hot Cell Technician Relationship Specialty Start Date End Date Branden Henson MD PCP - General Internal Medicine 06/08/19 documented as of this encounter
== END 2025-04-04 10:22 | disposition home or self-care (01) ==
LOC: HO.HSMS 09:19
PROVIDERS: Visit Provider Physician Assistant Medical
DX: G47.33 Obstructive sleep apnea (adult) (pediatric) (principal); J45.909 Unspecified asthma, uncomplicated; F41.9 Anxiety disorder, unspecified; R53.83 Other fatigue; G47.9 Sleep disorder, unspecified; E66.01 Morbid (severe) obesity due to excess calories; Z87.39 Personal history of other diseases of the musculoskeletal system and connective tissue
CPT/HCPCS: 99214

== ENCOUNTER → 2025-04-04 09:18 | Outpatient (BNVA) | payer OTHER, SELFPAY | PROVIDERS: Visit Provider Physician Assistant Medical | DX: G47.33 Obstructive sleep apnea (adult) (pediatric) (principal); J45.909 Unspecified asthma, uncomplicated; F41.9 Anxiety disorder, unspecified; R53.83 Other fatigue; E66.01 Morbid (severe) obesity due to excess calories; Z87.39 Personal history of other diseases of the musculoskeletal system and connective tissue | CPT/HCPCS: 99212 ==

== ENCOUNTER 2025-07-07 08:55 | Outpatient (AMB) | payer OTHER, SELFPAY ==
[2025-07-07 09:11] VITALS: BP 116/70; PULSE 81; O2SAT 96; BMI 52.0
--- NOTE | 2025-07-07 09:11 | A.OFFVIS_ITS ---
Vital Signs 07/07/25 09:11 Height 5 ft 3 in Weight 293 lb 8 oz BMI 52.0 BP 116/70 Blood Pressure Location Rt brachial Position Sitting Pulse 81 Pulse Source Pulse Oximeter Pulse Oximetry (%) 96 Oxygen Delivery Method Room Air Intake Visit Reasons: 3 mo follow up Intake Note: Patient presents follow up MARIAJOSE medication. Compliance in chart(90/90days, >=4hrs-98%, Average Usage-7hr 40min, Pressure-8cm, Med Leaks-0.4, AHI-0.3). Patient states insurance wants to Insurance wants to charge her $500 for a rental Machine while they fix her machine and she can not afford it. Also stated her distilled water needs to go through different Supplier. Inspector Final Assembly Conveyor Line Required: Yes Inspector Final Assembly Conveyor Line Language: Adult Care Manager Services: Inspector Final Assembly Conveyor Line Present Inspector Final Assembly Conveyor Line Name: Aleksandr [id number] Information Interpreted: non-clinical & clinical Accompanied by: Self / Same As Patient Allergies No Known Allergies Allergy (Verified 07/07/25 09:14) HPI Comments Details: 34 y/o tamazight speaking female with h/o asthma presents for a f/u of severe mariajose. Inspector Final Assembly Conveyor Line on IPAD is used for history taking. Split Night Study Aug 24 2024 and CPAP pressures adjusted to [id number], patient has severe MARIAJOSE, AHI 26/hr and O2 nadirs to 84%. CPAP Compliance Report 03/2025 - 06/2025 Total avg use is 88/90 days and >4 hours use is 7hrs and 49 min Press 4-8cmH20 with Leaks 3.6 L/min AHI 0.3 She cleans her mask daily, changes filters, uses distilled water. Pt. states her machine does not work properly it is stuck at 4cmH20 and does not adjust the pressures to 8cmH20 automatically as it should, her insurance does not allow to her change the machine until 5 years of use. They will rent her a new machine for 500 dollars however she is not able to afford this payment. Recently she has learned if she goes into the setting and adjusts the settings manually to 8cmH20 at night, it will stay at 8cmH20, however when it reverts to 4cmH20 at night, she wakes up choking and gasping for air. She feels like she is suffocating as the pressures are not strong enough, and snoring has decreased significantly. She is on Monjarou 0.25mg subcut every week and is trying to lose weight. She has fibromyalgia and aches in all her joints goes for steroid injections. She has RLS, with numbness, tingling and burning in the feet bilaterally, this often wake her up at night. Anxiety is being managed by [facility] and therapist biweekly appts along with sertraline helps to improve mood. She has lost 7 pounds since last visit now 293 and BMI is 52, Aug or Sep will be evaluated for Gastric Bypass. PFSH Surgical History Hx of eye surgery Hx of section Family History Mother No problems noted. Father Hypertension Diabetes Neuropathy Brother No problems noted. Brother No problems noted. Sister Diabetes Sister No problems noted. Daughter Asthma Epilepsy Social History Alcohol intake: never Patient Tobacco Use Status: Never used Tobacco Physical Exam Vital Signs: Last Vital Signs Pulse 81 07/07/25 09:11 BP 116/70 07/07/25 09:11 Pulse Ox 96 07/07/25 09:11 Oxygen Delivery Method Room Air 07/07/25 09:11 BMI result Body Mass Index 52.0 Const General: cooperative, comfortable and no acute distress Orientation/consciousness: patient oriented x3 HEENT Face and sinus: Yes normal facial exam and Yes face symmetric Mouth: tongue normal Eyes Pupils: Equal, round and reactive pupils present, Pupils normal by confrontation and Pupil accommodation reflex normal Resp Effort & Inspection: normal respiratory effort and able to speak in complete sentences Neuro General: patient oriented x3 and moves all extremities Cranial nerves: Yes CN's II-XII intact bilaterally, Yes Facial sensation intact/muscles of mastication intact, Yes Equal, round and reactive pupils present, Yes Normal facial strength present, Yes Midline tongue present, Yes Symmetric palate elevation present, Yes Ability to bilaterally rotate head present and Yes Ability to bilaterally elevate shoulders present Gait exam (Neuro): Normal gait present Motor exam (neuro): 5/5 motor strength present throughout Psych Thought process: Normal thought process present Thought content: Normal thought content present Assessment & Plan Assessment & Plan (1) MARIAJOSE on CPAP: Code(s): G47.33 - Obstructive sleep apnea (adult) (pediatric) Category: Medical (2) Asthma: Code(s): J45.909 - Unspecified asthma, uncomplicated Category: Medical Qualifiers: Asthma severity: unspecified severity Asthma persistence: unspecified Asthma complication type: unspecified Qualified Code(s): J45.909 - Unspecified asthma, uncomplicated (3) Anxiety: Code(s): F41.9 - Anxiety disorder, unspecified Category: Medical (4) Fatigue due to sleep pattern disturbance: Code(s): R53.83 - Other fatigue; G47.9 - Sleep disorder, unspecified Category: Medical (5) Morbid obesity: Code(s): E66.01 - Morbid (severe) obesity due to excess calories Category: Medical (6) History of burning pain in lower extremity: Code(s): Z87.39 - Personal history of other diseases of the musculoskeletal system and connective tissue Category: Medical (7) Bilateral leg paresthesia: Code(s): R20.2 - Paresthesia of skin Category: Medical Plan Severe MARIAJOSE she is compliant, though the pressures are fluctuating to 4cmH20 and will not adjust to 8cmH20, may need a new machine. Paresthesias Bilateral legs RLS / PLMD peripheral neuropathy vs. Radicular as she is on insulin has T2DM Had allergic reaction with Lyrica she has tremors discontinued it, continue magnesium 400mg po daily at bedtime. needs distilled water for her machine 3.5 gallons or 2/liters / month- sent for supplies to [employer] [facility] Patient states mask leaks Airfit N20 full face mask with chin strap. sent rx to [facility] mask fitting. Obesity BMI is elevated continue Monjarou and f/u with endocrine and Weight management. Anxiety [facility] therapist 2x a month, continue Sertraline as prescribed. F/U in 3 months. Medications: Changed From [distilled water] Use one bottle of distilled water in CPAP machine as needed. 1 ea 6RF cpap supplies G47.33 - Obstructive sleep apnea (adult) (pediatric) To [distilled water] Use 1-2 liter of distilled water in CPAP machine as needed weekly 2 ea 6RF cpap supplies G47.33 - Obstructive sleep apnea (adult) (pediatric) Coding Level of Care Code Est Pt Level 4 (36446) Diagnoses MARIAJOSE on CPAP G47.33 Asthma, unspecified asthma severity, unspecified whether complicated, unspecified whether persistent J45.909 Asthma severity: unspecified severity Asthma persistence: unspecified Asthma complication type: unspecified Anxiety F41.9 Fatigue due to sleep pattern disturbance R53.83; G47.9 Morbid obesity E66.01 History of burning pain in lower extremity Z87.39 Bilateral leg paresthesia R20.2
== END 2025-07-07 10:08 | disposition home or self-care (01) ==
LOC: HO.HSMS 08:56
PROVIDERS: Visit Provider Physician Assistant Medical
DX: G47.33 Obstructive sleep apnea (adult) (pediatric) (principal); J45.909 Unspecified asthma, uncomplicated; F41.9 Anxiety disorder, unspecified; R53.83 Other fatigue; G47.9 Sleep disorder, unspecified; E66.01 Morbid (severe) obesity due to excess calories; Z87.39 Personal history of other diseases of the musculoskeletal system and connective tissue; R20.2 Paresthesia of skin
CPT/HCPCS: 99214

== ENCOUNTER → 2025-07-07 08:55 | Outpatient (BNVA) | payer OTHER, SELFPAY | PROVIDERS: Visit Provider Physician Assistant Medical | DX: G47.33 Obstructive sleep apnea (adult) (pediatric) (principal); R20.2 Paresthesia of skin; J45.909 Unspecified asthma, uncomplicated; F41.9 Anxiety disorder, unspecified; R53.83 Other fatigue; Z87.39 Personal history of other diseases of the musculoskeletal system and connective tissue; Z99.89 Dependence on other enabling machines and devices | CPT/HCPCS: 99212 ==